=== PATIENT | female | born 1980 | race Two or more races ===

== ENCOUNTER 2020-04-17 12:00 | Outpatient (RCR) | payer MEDICAID, SELFPAY ==
--- NOTE | 2020-03-10 11:04 | MHC.PT.EP ---
[facility] [place] Office [place] Office [place] Office [address] Bhargavi Lyle [address] [phone] F: [phone] F: [phone] F: [phone] F: [phone] Physical Therapy Plan of Care Date of Evaluation: 03/10/20 Date of Surgery: N/A Diagnosis: pain in L shoulder Assessment: pt presents to physical therapy with pain, decreased range of motion, decreased strength, impaired functional mobility, and impaired postural awareness. pt is a good candidate for skilled PT due to age, potential remediation of impairments, typical disease/condition progression and prognosis, comorbidities, and motivation. pt would benefit from tailored strengthening and stretching exercise program, postural re-training, neuromuscular re-education, and modalities as needed for pain. Frequency and Duration: The patient will be seen 2x/wk for 4 wks Short Term Goals: pt will be I w/ HEP to promote self-management of condition. pt will improve L shoulder flexion AROM to 120 degrees to facilitate ease in reaching for objects on higher shelves. Retirement Goals: pt will improve L shoulder functional ER to occiput level w/ <2/10 L shoulder pain to promote independence in performing upper body ADLs. pt will report statistically significant improvement in self-reported outcome measure, SPADI, to promote return to PLOF. Treatment Plan: Modalities to reduce pain, spasms and effusion. Manual therapy to restore motion and function. Therapeutic exercise to improve strength and flexibility. Neuromuscular re-education for posture and balance. Therapeutic activities to return to functional activities of daily living. Please sign and return to therapist. Thank you for your referral.
--- NOTE | 2020-04-17 12:50 | MHC.PT.DC ---
[facility] [place] Office [place] Office [place] Office [address] Lyle [address] [phone] F: [phone] F: [phone] F: [phone] F: [phone] Physical Therapy Discharge Report Diagnosis: pain in L shoulder Date of Surgery: N/A Date of Evaluation: 03/10/20 Date of Discharge: 04/17/20 Treatments to Date: 8 Cancellations to Date: 0 No Shows to Date: 0 Discharge Status: Achieved Goals Improved Function Independent with HEP Discharge Summary: pt reported a statistically significant improvement in her self-reported outcome measure, SPADI (22/130, previously 130/130). pt has improved in her shoulder AROM measurements. pt stated she feels PT was very helpful in reducing her pain and improving her range of motion. pt is I w/ her HEP. pt is D/C'd from this PT POC. Electronically signed by: Nallely Malik PT, DPT Please sign and return to therapist. Thank you for your referral.
== END 2020-04-17 12:51 | disposition other institution (70) ==
LOC: HO.PT 12:00
PROVIDERS: PCP Internal Medicine; Visit Provider Internal Medicine
DX: M25.512 Pain in left shoulder (principal)
CPT/HCPCS: 97110; 97162

== ENCOUNTER → 2020-07-24 11:25 | Outpatient (BNVA) | payer MEDICAID, SELFPAY | PROVIDERS: Visit Provider Urology ==

== ENCOUNTER 2020-08-03 11:32 | Outpatient (REF) | payer MEDICAID, SELFPAY ==
--- NOTE | ~2020-08-03 | MM_ITS ---
EXAMINATION: MM SCREENING DIGITAL BREAST TOMOSYNTHESIS, BILATERAL CLINICAL INFORMATION: Screening. Asymptomatic. The lifetime risk of breast cancer based on the Tyrer-Cuzick Model is 8%. COMPARISON: Mammography: 01/23/2019 (baseline) TECHNIQUE: Digital breast tomosynthesis is performed in both the craniocaudal and mediolateral oblique views along with computer-aided detection (CAD). Synthesized 2D images are generated from the tomosynthesis. FINDINGS: There are scattered areas of fibroglandular density (ACR BI-RADS breast composition Category b). There are no significant masses, abnormal calcifications, or other abnormalities. Parenchymal pattern is similar to prior studies. The axilla and skin contours are unremarkable. MM/MM tomosynthesis screening BI IMPRESSION: No mammographic evidence of malignancy. ASSESSMENT: BI-RADS 1: Negative RECOMMENDATION: Routine annual mammography screening. This patient's information was entered into a reminder system with a target due date for their next mammogram.
== END 2020-08-03 11:33 | disposition home or self-care (01) ==
LOC: HO.MAMMO 11:32
PROVIDERS: PCP Internal Medicine; Visit Provider Internal Medicine
DX: Z12.31 Encounter for screening mammogram for malignant neoplasm of breast (principal)
CPT/HCPCS: 77063; 77067

== ENCOUNTER 2020-08-10 15:28 | Emergency (ER) | payer MEDICAID, SELFPAY ==
[2020-08-10 16:39] VITALS: BP 100/79; PULSE 69; RESP 16; TEMP 36.7; O2SAT 100; BMI 35.4
[2020-08-10 17:19] LABS: COVID-19 Test Negative (Negative)
--- NOTE | 2020-08-10 17:54 | ED.GENADULT ---
HPI - General Adult General Chief complaint: General Medical Stated complaint: COVID SYMPTOMS Time Seen by Provider: 08/10/20 17:05 Source: patient Mode of arrival: ambulatory Limitations: no limitations History of Present Illness HPI narrative: Patient presents to ED for 2 days of body aches and sore throat. Patient states no fever, chills, chest pain, shortness of breath. Patient states she was at a [employer] last week and concern for COVID exposure. Related Data Previous Rx's Medication Instructions Recorded bethanechol chloride 50 mg tablet 50 mg PO BID 90 Days #180 tab 07/24/20 Allergies Allergy/AdvReac Type Severity Reaction Status Date / Time Seafood Allergy Severe ANAPHYLAXIS Uncoded 07/24/20 11:26 pinapple Allergy Unknown redness Uncoded 07/24/20 11:26 and itching seafood Allergy Unknown anaphylaxis Uncoded 07/24/20 11:26 Review of Systems Review of Systems: Yes all other systems are reviewed and are negative Constitutional: Constitutional: Reports as per HPI, Reports no additional constitutional complaints and Reports body ache(s) Eyes: Eyes: Reports as per HPI and Reports no additional eye complaints ENT: Reports system reviewed and no additional complaints, except as documented, Reports as per HPI and Reports sore throat Cardiovascular: Cardiovascular: Reports as per HPI and Reports no additional cardiovascular complaints Respiratory: Respiratory: Reports as per HPI and Reports no additional respiratory complaints Gastrointestinal: Gastrointestinal: Reports as per HPI and Reports no additional gastrointestinal complaints Genitourinary: Genitourinary: Reports no additional female genitourinary complaints and Reports as per HPI Musculoskeletal: Musculoskeletal: Reports no additional musculoskeletal complaints and Reports as per HPI Neurologic: Reports system reviewed and no additional complaints, except as documented and Reports as per HPI Psychiatric: Psychiatric: Reports no additional psychiatric complaints and Reports as per HPI [facility] Social History Social History Alcohol intake: never Smoking Status: Never smoker Use of substances other than those prescribed or required for medical reasons: No Advance Directives: No Advance Directives Information Provided: No Physical Exam Vital Signs: Vital Signs: Last Vital Signs Temp 98.0 F 08/10/20 16:39 Pulse 69 08/10/20 16:39 Resp 16 08/10/20 16:39 BP 100/79 08/10/20 16:39 Pulse Ox 100 08/10/20 16:39 Body Mass Index 35.4 Const: General: cooperative, healthy appearing, comfortable, no acute distress, well developed, alert, awake and Physically active Orientation/consciousness: patient oriented x3 HENMT: Other: Or exam negative for signs of bacterial tonsillitis/pharyngitis. Oral exam negative for signs of peritonsillar abscess Head: Yes normal to inspection, Yes No palpable skull fracture present, Yes normocephalic, Yes atraumatic and No abrasion Eyes: General: appearance normal, both eyes and all related structures Neck: Neck: Yes normal visual inspection, Yes full ROM, Yes no lymphadenopathy, Yes no meningeal signs, Yes trachea midline, Yes supple and No tender Chest: Chest palpation & inspection: normal inspection of the chest and normal palpation of entire chest wall Resp: Effort & Inspection: normal respiratory effort and able to speak in complete sentences Cardio: Jugular venous distension: no JVD Heart sounds: S1 normal heart sound present and S2 normal heart sound present GI: Inspection: Yes normal to inspection and No abdominal wall ecchymosis Palpation (GI): Soft to palpation, not firm, nontender, no guarding and not rigid : General: No CVA tenderness and Yes no CVA tenderness Back/Spine/Pelvis: Back: no CVA tenderness, No CVA tenderness and No back tenderness Skin: General skin exam: no rashes or lesions noted and elasticity normal Neuro: General: patient oriented x3, no meningeal signs and CN's II-XI intact bilaterally Cranial nerves: Yes CN's II-XII intact bilaterally Extrem: General: Yes normal to inspection and Yes full ROM Course Course Course Narrative: Patient will have rapid COVID swab sent Reevaluation(s) Reevaluation #1: Patient's COVID swab came back negative. Rapid strep was collected and sent. History physical exam does not indicate bacterial tonsillitis/pharyngitis. Patient informed that although her COVID swab came back negative due to her having symptoms for only 2 days and might be a false negative. Patient informed she should get retested in 72 hours or continue quarantine if you get worse. Time: 18:03 Medical Decision Making MDM Narrative Medical decision making narrative: Viral syndrome. Viral pharyngitis Lab Data Labs: Lab Results 08/10/20 Range/Units 16:44 COVID-19 ([facility]) Negative (Negative) COVID-19 Clin Com See Note Discharge Plan Discharge Clinical Impression: Acute viral syndrome, Acute viral pharyngitis Patient Disposition: Home, Self-Care Instructions: Pharyngitis (ED), Viral Syndrome (ED) Additional Instructions: Return to the ED immediately for any chest pain, shortness of breath, weakness, dizziness, fever, chills, worsening sore throat or any other concerning symptoms. He can take [id number] Motrin/Tylenol. Symptoms worsen recommend 14 days self-isolation or repeat COVID test Prescriptions: No Action bethanechol chloride 50 mg tablet 50 mg PO BID 90 Days Qty: 180 RF: 1 Referrals: Annetta Hayes MD [Primary Care Provider] - 2 days (Viral syndrome. Initial COVID swab negative) Interventions: ED Discharge Assessment Last Done: 08/10/20 18:22 Discharge Date/Time: 08/10/20 18:25 Print Language: Bolivian
== END 2020-08-10 18:25 | disposition home or self-care (01) ==
PROVIDERS: Emergency Provider Emergency Medicine; PCP Internal Medicine
DX: J02.9 Acute pharyngitis, unspecified (principal); Z20.822 Contact with and (suspected) exposure to COVID-19; B34.9 Viral infection, unspecified
CPT/HCPCS: 36415; 87071; 87635; 87880; 99283; 99284

== ENCOUNTER 2020-10-06 13:57 | Outpatient (REF) | payer MEDICAID, SELFPAY ==
[2020-10-06 14:48] LABS: MANUAL DIFF FLAG NO
[2020-10-06 14:52] LABS: Basophils Percent Auto 0.4 % (0-2); Eosinophils Absolute Auto 0.1 X10*3/uL (0.0-0.4); Eosinophils Percent Auto 1.9 % (0-4); Hematocrit 38.2 % (37-47); Hemoglobin 12.6 g/dl (12.0-16.0); Imm Gran Abs Auto 0.01 X10*3/uL (0.00-0.03); Imm Gran Pct Auto 0.1 % (0.0-0.4); Lymphocytes Absolute Auto 1.7 X10*3/uL (1.2-4.9); Lymphocytes Percent Auto 24.3 % (20-40); Mean Corpuscular Hemoglobin 29.7 pg (27.0-33.0); Mean Corpuscular Volume 90.1 fL (80-98); Mean Platelet Volume 11.8 fL (9.4-12.3); Monocytes Absolute Auto 0.5 X10*3/uL (0.1-1.2); Monocytes Percent Auto 6.6 % (2-11); Neutrophils Absolute Auto 4.5 X10*3/uL (2.0-8.3); Neutrophils Percent Auto 66.7 % (45-73); Platelet Count 212 X10*3/uL (160-400); Red Blood Count 4.24 X10*6/uL (4.20-5.50); Red Cell Distribution Width 14.3 % (11.0-16.0); White Blood Count 6.8 X10*3/uL (4.8-10.8)
== END 2020-10-06 13:58 | disposition home or self-care (01) ==
LOC: HO.LAB 13:57
PROVIDERS: PCP Internal Medicine; Visit Provider Psychiatry & Neurology Neurology
DX: G35 Multiple sclerosis (principal)
CPT/HCPCS: 36415; 85025

== ENCOUNTER 2020-11-12 08:26 | Emergency (ER) | payer MEDICAID, SELFPAY ==
[2020-11-12 08:54] VITALS: BP 105/78; PULSE 72; RESP 18; TEMP 36.7; O2SAT 100; BMI 32.9
--- NOTE | 2020-11-12 09:07 | ED_ITS ---
HPI - General Adult General Chief complaint: General Medical Stated complaint: sore throat Time Seen by Provider: 11/12/20 09:25 Source: patient Mode of arrival: ambulatory Limitations: no limitations History of Present Illness HPI narrative: Patient presents to the ED for sore throat. Patient states 2 weeks ago she was treated for strep throat and was positive for strep. Patient finished her antibiotics/amoxicillin 2 weeks ago. Patient states that her son came home and has been sick and now she is having sore throat again and body aches. Patient states white patch on right tonsil. Patient states no coughing. Patient complains sore throat, headache, and body ache pain. patient states no chest pain or shortness of breath. Patient vaccinated against COVID Related Data Previous Rx's Medication Instructions Recorded bethanechol chloride 50 mg tablet 50 mg PO BID 90 Days #180 tab 07/24/20 amoxicillin-pot clavulanate 1 tab PO Q12H #20 tab 11/12/20 [Augmentin] naproxen 500 mg PO BID PRN #20 tab 11/12/20 Allergies Allergy/AdvReac Type Severity Reaction Status Date / Time Seafood Allergy Severe ANAPHYLAXIS Uncoded 07/24/20 11:26 pinapple Allergy Unknown redness Uncoded 07/24/20 11:26 and itching seafood Allergy Unknown anaphylaxis Uncoded 07/24/20 11:26 Review of Systems Review of Systems: Yes all other systems are reviewed and are negative Constitutional: Constitutional: Reports as per HPI, Reports no additional constitutional complaints, Reports body ache(s) and Reports headache(s) Eyes: Eyes: Reports as per HPI and Reports no additional eye complaints ENT: Reports system reviewed and no additional complaints, except as documented, Reports as per HPI, Reports headache(s) and Reports sore throat Cardiovascular: Cardiovascular: Reports as per HPI and Reports no additional cardiovascular complaints Respiratory: Respiratory: Reports as per HPI and Reports no additional respiratory complaints Gastrointestinal: Gastrointestinal: Reports as per HPI and Reports no additional gastrointestinal complaints Genitourinary: Genitourinary: Reports no additional female genitourinary complaints and Reports as per HPI Musculoskeletal: Musculoskeletal: Reports no additional musculoskeletal complaints and Reports as per HPI Neurologic: Reports system reviewed and no additional complaints, except as documented, Reports as per HPI and Reports headache(s) Psychiatric: Psychiatric: Reports no additional psychiatric complaints and Reports as per HPI [facility] Social History Social History Alcohol intake: never Advance Directives: No Advance Directives Information Provided: Yes Patient : No Physical Exam Vital Signs: Vital Signs: Last Vital Signs Temp 98.0 F 11/12/20 08:54 Pulse 72 11/12/20 08:54 Resp 18 11/12/20 08:54 BP 105/78 11/12/20 08:54 Pulse Ox 100 11/12/20 08:54 Body Mass Index 32.9 Const: General: cooperative, healthy appearing, comfortable, no acute distress, well developed, alert, awake and Physically active Orientation/consciousness: patient oriented x3 HENMT: Head: Yes normal to inspection, Yes No palpable skull fracture present, Yes normocephalic and Yes atraumatic Throat: Yes posterior oropharynx normal, Yes uvula midline and Yes abnormal tonsil (White patch on right tonsil) Eyes: General: appearance normal, both eyes and all related structures Neck: Neck: Yes normal visual inspection, Yes full ROM, Yes no lymphadenopathy, Yes no meningeal signs, Yes trachea midline, Yes supple and No tender Chest: Chest palpation & inspection: normal inspection of the chest and normal palpation of entire chest wall Resp: Effort & Inspection: normal respiratory effort and able to speak in complete sentences Auscultation: clear to auscultation bilaterally Cardio: Jugular venous distension: no JVD Heart sounds: S1 normal heart sound present and S2 normal heart sound present GI: Inspection: Yes normal to inspection and No abdominal wall ecchymosis Palpation (GI): Soft to palpation, not firm, nontender, no guarding and not rigid : General: No CVA tenderness and Yes no CVA tenderness Back/Spine/Pelvis: Back: no CVA tenderness, No CVA tenderness and No back tenderness Skin: General skin exam: no rashes or lesions noted and elasticity normal Neuro: General: patient oriented x3, gait normal, no meningeal signs and CN's II-XI intact bilaterally Cranial nerves: Yes CN's II-XII intact bilaterally Extrem: General: Yes normal to inspection and Yes full ROM Psych: Appearance: grossly normal, well kempt and not disheveled Course Course Course Narrative: Patient will be swabbed for COVID and strep. Reevaluation(s) Reevaluation #1: Patient's COVID swab and strep came back negative. Due to history of recurrence positive throat cultures patient will be discharged with antibiotics for strep pharyngitis. Time: 10:17 Medical Decision Making MDM Narrative Medical decision making narrative: Pharyngitis Lab Data Labs: Lab Results 11/12/20 11/12/20 Range/Units 09:34 09:34 COVID-19 ([facility]) Negative (Negative) COVID-19 Clin Com See Note S. pyogenes GrpA TOMASZ Negative (Negative) Discharge Plan Discharge Clinical Impression: Pharyngitis Patient Disposition: Home, Self-Care Instructions: Pharyngitis (ED) Additional Instructions: A COVID swab and strep test came back negative, but due to history of recurring positive strep throat cultures I will discharge with antibiotics. Return to the ED for drooling, change in voice, chest pain, shortness of breath, weakness, dizziness, or any other concerning symptoms. Prescriptions: New amoxicillin-pot clavulanate [Augmentin] 875-125 mg tablet 1 tab PO Q12H Qty: 20 RF: 0 naproxen 500 mg tablet 500 mg PO BID PRN (Reason: pain) Qty: 20 RF: 0 No Action bethanechol chloride 50 mg tablet 50 mg PO BID 90 Days Qty: 180 RF: 1 Referrals: Annetta Hayes MD [Primary Care Provider] - 2 days (Pharyngitis. COVID swab negative. Initial strep throat negative, but due to recurrence positive strep throat culture as per patient's history she will be discharged with antibiotics.) Interventions: ED Discharge Assessment Last Done: 11/12/20 10:33 Discharge Date/Time: 11/12/20 10:34 Print Language: Rwandan
[2020-11-12 10:03] LABS: COVID-19 Test Negative (Negative); IDNOW Serial# 9DD0AD1C
[2020-11-12 10:04] LABS: IDNOW Serial# 08D9AD1C; Strep A Nucleic Acid Negative (Negative)
== END 2020-11-12 10:34 | disposition home or self-care (01) ==
PROVIDERS: Physician Assistant; Emergency Provider Emergency Medicine; PCP Internal Medicine
DX: J02.9 Acute pharyngitis, unspecified (principal); Z20.822 Contact with and (suspected) exposure to COVID-19
CPT/HCPCS: 36415; 87635; 87651; 99283

== ENCOUNTER 2021-02-16 12:34 | Outpatient (REF) | payer MEDICAID, SELFPAY ==
[2021-02-16 13:54] LABS: MANUAL DIFF FLAG NO
[2021-02-16 14:01] LABS: Basophils Percent Auto 0.4 % (0-2); Eosinophils Absolute Auto 0.1 X10*3/uL (0.0-0.4); Eosinophils Percent Auto 1.5 % (0-4); Hematocrit 38.6 % (37-47); Hemoglobin 12.9 g/dl (12.0-16.0); Imm Gran Abs Auto 0.01 X10*3/uL (0.00-0.03); Imm Gran Pct Auto 0.2 % (0.0-0.4); Lymphocytes Absolute Auto 1.6 X10*3/uL (1.2-4.9); Mean Corpuscular HGB Conc 33.4 g/dl (31.0-35.0); Mean Corpuscular Hemoglobin 30.1 pg (27.0-33.0); Mean Corpuscular Volume 90.2 fL (80-98); Mean Platelet Volume 12.1 fL (9.4-12.3); Monocytes Absolute Auto 0.4 X10*3/uL (0.1-1.2); Monocytes Percent Auto 8.4 % (2-11); Neutrophils Absolute Auto 3.1 X10*3/uL (2.0-8.3); Neutrophils Percent Auto 59.5 % (45-73); Platelet Count 194 X10*3/uL (160-400); Red Blood Count 4.28 X10*6/uL (4.20-5.50); Red Cell Distribution Width 14.3 % (11.0-16.0); White Blood Count 5.2 X10*3/uL (4.8-10.8)
[2021-02-16 14:26] LABS: Alanine Aminotransferase 13 U/L (0-31); Albumin Level 4.6 g/dL (3.5-5.0); Alkaline Phosphatase 43 U/L (39-117); Anion Gap 13 (12-20); Aspartate Amino Transferase 12 U/L (5-31); Bilirubin Total 0.6 mg/dL (0.0-1.0); Blood Urea Nitrogen 11 mg/dL (9-16); Calcium 10.1 mg/dL (8.4-10.2); Carbon Dioxide 25 mmol/L (22-29); Chloride 107 mmol/L (96-108); Cholesterol 210 mg/dL; Estimated Glomerular Filt Rate > 60; Glucose Fasting 87 mg/dL (60-99); HDL Cholesterol 68 mg/dL; LDL Cholesterol Calculated 130 mg/dl; Potassium 4.8 mmol/L (3.3-5.1); Sodium 140 mmol/L (135-145); Total Protein 7.4 g/dL (6.5-8.0); Triglycerides 60 mg/dL
[2021-02-19 20:52] LABS: HPV mRNA E6/E7 Not Detected (Not Detected)
== END 2021-02-16 12:35 | disposition home or self-care (01) ==
LOC: HO.10HDL 12:34
PROVIDERS: Visit Provider Internal Medicine
DX: Z00.00 Encounter for general adult medical examination without abnormal findings (principal); Z12.4 Encounter for screening for malignant neoplasm of cervix; Z11.51 Encounter for screening for human papillomavirus (HPV); Z13.31 Encounter for screening for depression; G35 Multiple sclerosis
CPT/HCPCS: 36415; 80053; 80061; 85025; 87624; 88142

== ENCOUNTER → 2021-03-03 10:36 | Outpatient (BNVA) | payer MEDICAID, SELFPAY | PROVIDERS: PCP Internal Medicine | DX: G35 Multiple sclerosis (principal); N31.9 Neuromuscular dysfunction of bladder, unspecified | CPT/HCPCS: 51798; 99212 ==

== ENCOUNTER → 2021-05-03 11:25 | Outpatient (BNVA) | payer MEDICAID, SELFPAY | PROVIDERS: PCP Internal Medicine ==

== ENCOUNTER 2021-05-12 12:16 | Outpatient (REF) | payer MEDICAID, SELFPAY ==
[2021-05-12 13:03] LABS: Alanine Aminotransferase 16 U/L (0-31); Albumin Level 4.5 g/dL (3.5-5.0); Alkaline Phosphatase 38 U/L (39-117); Aspartate Amino Transferase 17 U/L (5-31); Bilirubin Direct 0.2 mg/dL (0.0-0.5); Bilirubin Total 0.6 mg/dL (0.0-1.0); Total Protein 7.4 g/dL (6.5-8.0)
== END 2021-05-12 12:17 | disposition home or self-care (01) ==
LOC: HO.LAB 12:16
PROVIDERS: Psychiatry & Neurology Neurology; PCP Internal Medicine; Visit Provider Internal Medicine
DX: G35 Multiple sclerosis (principal)
CPT/HCPCS: 20610; 36415; 80076; 99202

== ENCOUNTER 2021-05-12 12:35 | Outpatient (REF) | payer MEDICAID, SELFPAY ==
--- NOTE | ~2021-05-12 | XR_ITS ---
EXAMINATION: X-RAY BILATERAL KNEES X-RAY RIGHT KNEE X-RAY LEFT KNEE CLINICAL INFORMATION: Pain COMPARISON: X-ray 11/13/2018 TECHNIQUE: X-ray bilateral knees one view. Left knee 2 views. Right knee 2 views. FINDINGS: Left knee: Moderate to severe lateral compartment arthritis, joint space loss, osteophytes, genu valgus. Arthritis to a lesser degree in the lateral and patellofemoral compartment. No fracture or dislocation. No effusion. Right knee: Mild narrowing of the joint spaces. Marginal osteophytes and lateral compartment. Small suprapatellar joint fluid. No fracture or dislocation. XR/XR knee LT 2V IMPRESSION: Left knee: Tricompartment osteoarthritis. Moderate to severe lateral compartment arthritis. Interval progression from previous. Right knee: Mild tricompartment arthritis. Slight interval progression from previous.
--- NOTE | ~2021-05-12 | XR_ITS ---
EXAMINATION: X-RAY BILATERAL KNEES X-RAY RIGHT KNEE X-RAY LEFT KNEE CLINICAL INFORMATION: Pain COMPARISON: X-ray 11/13/2018 TECHNIQUE: X-ray bilateral knees one view. Left knee 2 views. Right knee 2 views. FINDINGS: Left knee: Moderate to severe lateral compartment arthritis, joint space loss, osteophytes, genu valgus. Arthritis to a lesser degree in the lateral and patellofemoral compartment. No fracture or dislocation. No effusion. Right knee: Mild narrowing of the joint spaces. Marginal osteophytes and lateral compartment. Small suprapatellar joint fluid. No fracture or dislocation. XR/XR knee RT 2V IMPRESSION: Left knee: Tricompartment osteoarthritis. Moderate to severe lateral compartment arthritis. Interval progression from previous. Right knee: Mild tricompartment arthritis. Slight interval progression from previous.
--- NOTE | ~2021-05-12 | XR_ITS ---
EXAMINATION: X-RAY BILATERAL KNEES X-RAY RIGHT KNEE X-RAY LEFT KNEE CLINICAL INFORMATION: Pain COMPARISON: X-ray 11/13/2018 TECHNIQUE: X-ray bilateral knees one view. Left knee 2 views. Right knee 2 views. FINDINGS: Left knee: Moderate to severe lateral compartment arthritis, joint space loss, osteophytes, genu valgus. Arthritis to a lesser degree in the lateral and patellofemoral compartment. No fracture or dislocation. No effusion. Right knee: Mild narrowing of the joint spaces. Marginal osteophytes and lateral compartment. Small suprapatellar joint fluid. No fracture or dislocation. XR/XR knee standing BI IMPRESSION: Left knee: Tricompartment osteoarthritis. Moderate to severe lateral compartment arthritis. Interval progression from previous. Right knee: Mild tricompartment arthritis. Slight interval progression from previous.
== END 2021-05-12 12:36 | disposition home or self-care (01) ==
LOC: HO.HOSX 12:35
PROVIDERS: Visit Provider Physician Assistant
DX: M25.561 Pain in right knee (principal); M25.562 Pain in left knee
CPT/HCPCS: 73560; 73565; J1020

== ENCOUNTER 2021-09-03 10:37 | Outpatient (REF) | payer MEDICAID, SELFPAY ==
--- NOTE | ~2021-09-03 | MM_ITS ---
EXAMINATION: MM SCREENING DIGITAL BREAST TOMOSYNTHESIS, BILATERAL CLINICAL INFORMATION: Screening. Asymptomatic. The lifetime risk of breast cancer based on the Tyrer-Cuzick Model is 8%. COMPARISON: Mammography: 08/03/2020, 01/23/2019 (baseline). TECHNIQUE: Digital breast tomosynthesis is performed in both the craniocaudal and mediolateral oblique views along with computer-aided detection (CAD). Synthesized 2D images are generated from the tomosynthesis. FINDINGS: There are scattered areas of fibroglandular density (ACR BI-RADS breast composition Category b). There are no significant masses, abnormal calcifications, or other abnormalities. There are no significant changes. The axilla and skin contours are unremarkable. MM/MM tomosynthesis screening BI IMPRESSION: No mammographic evidence of malignancy. ASSESSMENT: BI-RADS 1: Negative RECOMMENDATION: Routine annual mammography screening. This patient's information was entered into a reminder system with a target due date for their next mammogram.
== END 2021-09-03 10:38 | disposition home or self-care (01) ==
LOC: HO.MAMMO 10:37
PROVIDERS: PCP Internal Medicine; Visit Provider Internal Medicine
DX: Z12.31 Encounter for screening mammogram for malignant neoplasm of breast (principal)
CPT/HCPCS: 77063; 77067

== ENCOUNTER 2021-11-02 10:00 | Outpatient (RCR) | payer MEDICAID, SELFPAY ==
--- NOTE | 2021-09-02 08:53 | MHC.PT.EP ---
[facility] [place] Office [place] Office [place] Office [address] Bhargavi Lyle [address] [phone] F: [phone] F: [phone] F: [phone] F: [phone] Physical Therapy Plan of Care Date of Evaluation: Date of Surgery: Diagnosis: PAIN IN SAE KNEES Assessment: MAVIS IS A PLEASANT 41 YO FEMALE WHO PRESENTS WITH SAE KNEE PAIN. SHE HAS CO-MORBIDITY MS LEADING TO ALTERED GAIT PATTERN, POOR BALANCE AND USE OF ASSISTIVE DEVICES. UPON EXAM, SHE DEMONSTRATES DECREASED KNEE ROM AND STRENGTH OF LOWER EXTREMITY. FUNCTIONAL LIMITATIONS INCLUDE DECREASED ABILITY TO PERFORM HOMEMAKING AND SELF CARE TASKS, DECREASED ABILITY TO PERFORM LONG PERIODS OF WALKING OR STATIC STANDING, DECREASED ABILITY TO NAVIGATE STAIRS AND DECREASED PARTICIPATION IN COMMUNITY AND RECREATIONAL ACTIVITIES. Pt IS A GOOD CANDIDATE FOR SKILLED PT DUE TO AGE, POTENTIAL REMEDIATION OF IMPAIRMENTS, TYPICAL DISEASE/CONDITION PROGRESSION AND PROGNOSIS, COMORBIDITIES, AND MOTIVATION. Pt WOULD BENEFIT FROM TAILORED PROGRAM OF THERAPEUTIC ACTIVITIES, FUNCTIONAL TRAINING, GAIT TRAINING, POSTURAL EDUCATION, NEUROMUSCULAR RE-EDUCATION, AND MODALITIES NEEDED. Frequency and Duration: The patient will be seen 2 X WEEK FOR 4 WEEKS Short Term Goals: INITIATE HEP AND PROMOTE SELF MANAGEMENT OF SYMPTOMS IN 2 VISITS Temperature Regulator Goals: IN 6 WEEKS: TO DEMONSTRATE FULL KNEE ROM, EQUAL SAE TO DEMONSTRATE FULL LE STRENGTH, EQUAL SAE TO ASCEND AND DESCEND STAIRS WITH RECIPROCAL GAIT WITHOUT PAIN GREATER THAN 2/10 TO AMBULATE AD MICHAEL ON LEVEL AND UNEVEN SURFACES FOR FITNESS WITHOUT PAIN GREATER THAN 2/10 TO PERFORM FULL FUNCTIONAL SQUAT WITHOUT SUBSTITUTION Treatment Plan: Modalities to reduce pain, spasms and effusion. Manual therapy to restore motion and function. Therapeutic exercise to improve strength and flexibility. Neuromuscular re-education for posture and balance. Therapeutic activities to return to functional activities of daily living. Electronically signed by: LESTER PINK PT, DPT Please sign and return to therapist. Thank you for your referral.
== END 2021-12-30 07:45 | disposition home or self-care (01) ==
LOC: HO.PT 10:00
PROVIDERS: PCP Internal Medicine; Visit Provider Internal Medicine
DX: M25.561 Pain in right knee (principal); M25.562 Pain in left knee
CPT/HCPCS: 97033; 97110; 97112; 97140; 97162; 97530

== ENCOUNTER 2021-11-26 12:26 | Emergency (ER) | payer MEDICAID, SELFPAY ==
[2021-11-26 13:19] VITALS: BP 118/76; PULSE 86; RESP 16; TEMP 36.3; O2SAT 99; BMI 33.1
--- NOTE | 2021-11-26 14:52 | ED_ITS ---
HPI - Back Pain/Injury General Chief Complaint: Back Pain/Injury Stated Complaint: shoulder, back, ankle pain Time Seen by Provider: 11/26/21 13:32 Source: patient Mode of arrival: ambulatory Limitations: no limitations History of Present Illness HPI Narrative: 41-year-old female who presents emergency department for evaluation right-sided pain after a crush injury. The patient states that she was at a [employer] store yesterday shopping. She was using a motorized shopping cart secondary to her MS. She states that someone was assisting her and stuck a case of water water bottles into her shopping cart. When the medical assistant instructor was loading a another case of water bottles and the car, the stack of water bottles tipped over and fell on the patient striking her right side and right lower extremity. She states she developed immediate pain in her mid and lower back, right arm and right leg. She states that this morning at 03:00 hours the pain was severe and was 10/10. She describes the pain is a constant, throbbing sensation and she points to her right neck, right upper back, right flank and right ankle when asked to localize the pain. The patient does have MS and states that she has ataxia and can walk with a cane. Since the injury she has had difficulty walking secondary to her pain. She denied being ill in any way prior to this injury, she denied fever, chills, chest pain, shortness of breath, nausea, vomiting MD elicited complaint: back pain and other (Right-sided back pain, neck pain, upper extremity pain and lower extremity pain) Pertinent past history: recent trauma (A stack of water bottles in cases fell on her yesterday while she was at a store shopping) Onset (ago): day(s) (2) Timing: constant Severity: severe Pain scale (0-10): 10 Similar Symptoms Previously: No Quality: throbbing Location: thoracic spine (Right side of neck, right upper and lower extremities) Radiation: none Exacerbating factors: movement Relieving factors: none Context: trauma Related Data Home Medications Medication Instructions Recorded Confirmed ibuprofen 600 mg tablet 600 mg PO TID headache 03/03/21 albuterol sulfate 90 mcg/actuation 0 mcg inhalation 05/03/21 aerosol inhaler (ProAir HFA) fluticasone propionate 110 0 mcg inhalation 05/03/21 mcg/actuation HFA aerosol inhaler (Flovent HFA) Previous Rx's Medication Instructions Recorded amoxicillin 875 mg-potassium 1 tab PO Q12H #20 tabs 11/12/20 clavulanate 125 mg tablet (Augmentin) naproxen 500 mg tablet 500 mg PO BID PRN pain #20 tabs 11/12/20 terazosin 1 mg capsule 1 mg PO BEDTIME #90 caps 07/05/21 bethanechol chloride 50 mg tablet 50 mg PO BID Neurogenic bladder 90 09/27/21 days #180 tabs oxycodone 5 mg tablet 5 mg PO Q4H PRN pain #14 tabs 11/26/21 Allergies Allergy/AdvReac Type Severity Reaction Status Date / Time Seafood Allergy Severe ANAPHYLAXIS Uncoded 05/03/21 11:26 pinapple Allergy Unknown redness Uncoded 05/03/21 11:26 and itching seafood Allergy Unknown anaphylaxis Uncoded 05/03/21 11:26 Review of Systems Review of Systems: Yes all other systems are reviewed and are negative [facility] Past Medical History [facility] Narrative: Social history: The patient denies tobacco use. The patient occasionally drinks alcohol. The patient denies drug use. Medical History GERD (gastroesophageal reflux disease) Incomplete emptying of bladder Multiple sclerosis Neurogenic bladder Primary osteoarthritis of left knee Primary osteoarthritis of right knee Thrombosed external hemorrhoid Surgical History History of surgery Social History Social History Alcohol intake: never Advance Directives: Yes Advance Directives Information Provided: Yes Advance Directives on File: No Current occupational status: disabled Current occupation: rt handed Physical Exam Vital Signs: Vital Signs: Last Vital Signs Temp 97.3 F 11/26/21 13:19 Pulse 86 11/26/21 13:19 Resp 16 11/26/21 13:19 BP 118/76 11/26/21 13:19 Pulse Ox 99 11/26/21 13:19 O2 Del Method 11/26/21 13:19 BMI result Body Mass Index 33.1 Const: Other: Awake, alert, female patient, she does have a resting tremor, she appears to be in distress secondary to her pain, she is sitting upright in a cardiac chair. HEENT: Head: Yes normal to inspection, Yes normocephalic and Yes atraumatic Ears: external ears normal General nose exam: Normal external nose present Face and sinus: Yes normal facial exam Mouth: Normal oral and palatal mucosa present Throat: Yes posterior oropharynx normal Eyes: General: appearance normal, both eyes and all related structures Pupils: Equal, round and reactive pupils present Neck: Other: No C-spine tenderness, patient does have tenderness palpation her right trapezius muscle Chest: Chest palpation & inspection: normal inspection of the chest and normal palpation of entire chest wall Resp: Effort & Inspection: normal respiratory effort and able to speak in complete sentences Auscultation: clear to auscultation bilaterally Cardio: Rate: regular rate Rhythm: regular rhythm Heart sounds: S1 normal heart sound present, S2 normal heart sound present and no murmurs GI: Inspection: Yes normal to inspection Palpation (GI): Soft to palpation, nontender and no guarding Auscultation: normal bowel sounds Back/Spine/Pelvis: Other: Patient has tenderness palpation of her paraspinal muscles on the right on her thoracic and lumbar region. Skin: General skin exam: no rashes or lesions noted Neuro: Cranial nerves: Yes CN's II-XII intact bilaterally and Yes Equal, round and reactive pupils present Cognition (Neuro): normal cognition Motor exam (neuro): 5/5 motor strength present throughout Extrem: Other: Tenderness palpation of her right shoulder, right upper arm, right lower extremity and right ankle, there is no limited range motion either actively or passively Psych: Appearance: grossly normal Speech and movement: Normal speech and movement present Affect: normal affect Attitude: cooperative Thought process: Normal thought process present Thought content: Normal thought content present Course Course Course Narrative: 41-year-old female who presents emergency department for evaluation of pain in her right neck, right side of her back, right upper and lower extremities after sustaining a crush injury had a local door when will crease of water bottles fell onto her right side while she was sitting in a motorized shopping cart. The patient did have pain immediately after the incident but had increased severity of the pain at 03:00 hours. Her examination is consistent with musculoskeletal injury and consistent with a crush injury with the pain being minor at 1st and then more severe later is the inflammation buildup in her muscles. She was given ibuprofen 600 mg orally and oxycodone 5 mg orally here in the emergency department. She was advised to take Tylenol and ibuprofen for pain and for pain not relieved by these medications she was prescribed oxycodone. The patient states that she is not concerned about addiction and does not have history of addiction. The patient was given printed and verbal instructions and discharged home. Discharge Plan Discharge Clinical Impression: Crush injury, Acute thoracic back pain, Acute lumbar back pain, Right arm pain, Acute pain of right lower extremity Patient Disposition: Home, Self-Care Instructions: Crush Injury (ED) Additional Instructions: Crush injury Discharge Instructions: Take ibuprofen 200 mg pills, 3 pills every 6 hours as needed for pain. Take Tylenol (acetaminophen) 500 mg pills, 2 pills every 4-6 hours as needed for pain. For pain not relieved by ibuprofen or Tylenol take oxycodone 5 mg pills, 1 pill every 4 hours as needed for pain. Do not drive or work while taking this medication since they can cause sleepiness. Oxycodone is a narcotic medication that can be addicting. If you are concerned about addiction you can ask the pharmacist for less pills or do not get this prescription filled. Apply ice for 15 minutes to the area that hurts on your neck, back, upper and lower extremities. Do this 4-6 times a day to help reduce the pain in the areas that were her in your accident.. Continue with normal activities as tolerated since staying in bed and not moving around will make your pain worse. Please return to the Emergency Department or see your doctor immediately if your symptoms get worse or if you develop any new symptoms that are concerning you. Follow up with your doctor in 2 day. Please read the other printed discharge instructions on crush injury. Prescriptions: New oxycodone 5 mg tablet 5 mg PO Q4H PRN (Reason: pain) Qty: 14 0RF Rx Instructions: Patient may request partial fill; Partial Fill upon patient request. No Action terazosin 1 mg capsule 1 mg PO BEDTIME Qty: 90 3RF bethanechol chloride 50 mg tablet 50 mg PO BID 90 Days Qty: 180 1RF amoxicillin-pot clavulanate [Augmentin] 875-125 mg tablet 1 tab PO Q12H Qty: 20 0RF naproxen 500 mg tablet 500 mg PO BID PRN (Reason: pain) Qty: 20 0RF ibuprofen 600 mg tablet 600 mg PO TID Flovent HFA 110 mcg/actuation HFA aerosol inhaler 0 mcg inhalation albuterol sulfate [ProAir HFA] 90 mcg/actuation HFA aerosol inhaler 0 mcg inhalation
[2021-11-26] MEDS: oxyCODONE HCl Immed Release 5 MG TABLET PO (15:00)
[2021-11-26] MEDS: Ibuprofen 600 MG TABLET PO (15:00)
== END 2021-11-26 15:17 | disposition home or self-care (01) ==
PROVIDERS: Emergency Provider Emergency Medicine Emergency Medical Services; PCP Internal Medicine
DX: S19.9XXA Unspecified injury of neck, initial encounter (principal); M79.602 Pain in left arm; M79.601 Pain in right arm; M79.605 Pain in left leg; M79.604 Pain in right leg; M54.6 Pain in thoracic spine; M54.50 Low back pain, unspecified; M54.2 Cervicalgia; Y29.XXXA Contact with blunt object, undetermined intent, initial encounter; Y93.9 Activity, unspecified; Y92.512 Supermarket, store or market as the place of occurrence of the external cause; Y99.9 Unspecified external cause status; Z79.899 Other long term (current) drug therapy
CPT/HCPCS: 99283

== ENCOUNTER 2022-02-09 12:14 | Outpatient (REF) | payer MEDICAID, SELFPAY ==
[2022-02-09 12:34] LABS: MANUAL DIFF FLAG NO
[2022-02-09 13:26] LABS: Basophils Percent Auto 0.6 % (0-2); Eosinophils Absolute Auto 0.2 X10*3/uL (0.0-0.4); Eosinophils Percent Auto 3.5 % (0-4); Hematocrit 38.2 % (37.0-47.0); Hemoglobin 12.5 g/dl (12.0-16.0); Imm Gran Abs Auto 0.02 X10*3/uL (0.00-0.03); Imm Gran Pct Auto 0.3 % (0.0-0.4); Lymphocytes Absolute Auto 1.6 X10*3/uL (1.2-4.9); Lymphocytes Percent Auto 22.5 % (20-40); Mean Corpuscular HGB Conc 32.7 g/dl (31.0-35.0); Mean Corpuscular Hemoglobin 30.1 pg (27.0-33.0); Monocytes Absolute Auto 0.6 X10*3/uL (0.1-1.2); Monocytes Percent Auto 8.1 % (2-11); Neutrophils Absolute Auto 4.5 x10*3/uL (2.0-8.3); Platelet Count 206 X10*3/uL (160-400); Red Blood Count 4.15 X10*6/uL (4.20-5.50); Red Cell Distribution Width 13.8 % (11.0-16.0); White Blood Count 6.9 X10*3/uL (4.8-10.8)
[2022-02-09 13:59] LABS: Alanine Aminotransferase 17 U/L (0-31); Albumin Level 4.2 g/dL (3.5-5.0); Alkaline Phosphatase 44 U/L (39-117); Aspartate Amino Transferase 14 U/L (5-31); Bilirubin Direct < 0.2 mg/dL (0.0-0.5); Bilirubin Total 0.2 mg/dL (0.0-1.0)
== END 2022-02-09 12:15 | disposition home or self-care (01) ==
LOC: HO.LAB 12:14
PROVIDERS: PCP Internal Medicine; Visit Provider Psychiatry & Neurology Neurology
DX: G35 Multiple sclerosis (principal)
CPT/HCPCS: 36415; 80076; 85025

== ENCOUNTER → 2022-04-14 14:30 | Outpatient (BNVA) | payer MEDICAID, SELFPAY | PROVIDERS: PCP Internal Medicine; Visit Provider Physician Assistant | DX: M17.0 Bilateral primary osteoarthritis of knee (principal) | CPT/HCPCS: 20610; 99212; J1020 ==

== ENCOUNTER 2022-08-30 12:24 | Outpatient (REF) | payer MEDICAID, SELFPAY ==
[2022-08-30 12:38] LABS: MANUAL DIFF FLAG NO
[2022-08-30 13:16] LABS: Hematocrit 37.9 % (37.0-47.0); Hemoglobin 12.7 g/dl (12.0-16.0); Imm Gran Pct Auto 0.4 % (0.0-0.4); Mean Corpuscular HGB Conc 33.5 g/dl (31.0-35.0); Mean Corpuscular Hemoglobin 30.2 pg (27.0-33.0); Mean Corpuscular Volume 90.2 fL (80.0-98.0); Neutrophils Percent Auto 69.7 % (45-73); Platelet Count 203 X10*3/uL (160-400); White Blood Count 7.9 X10*3/uL (4.8-10.8)
[2022-08-30 13:17] LABS: Basophils Percent Auto 0.3 % (0-2); Eosinophils Absolute Auto 0.2 X10*3/uL (0.0-0.4); Eosinophils Percent Auto 2.8 % (0-4); Imm Gran Abs Auto 0.03 X10*3/uL (0.00-0.03); Lymphocytes Absolute Auto 1.5 X10*3/uL (1.2-4.9); Lymphocytes Percent Auto 19.3 % (20-40); Monocytes Absolute Auto 0.6 X10*3/uL (0.1-1.2); Monocytes Percent Auto 7.5 % (2-11); Neutrophils Absolute Auto 5.5 x10*3/uL (2.0-8.3)
[2022-08-30 13:40] LABS: Alanine Aminotransferase 20 U/L (0-31); Albumin Level 4.2 g/dL (3.5-5.0); Alkaline Phosphatase 54 U/L (39-117); Aspartate Amino Transferase 17 U/L (5-31); Bilirubin Direct < 0.2 mg/dL (0.0-0.5); Bilirubin Total 0.5 mg/dL (0.0-1.0)
== END 2022-08-30 12:25 | disposition home or self-care (01) ==
LOC: HO.LAB 12:24
PROVIDERS: PCP Internal Medicine; Visit Provider Psychiatry & Neurology Neurology
DX: G35 Multiple sclerosis (principal)
CPT/HCPCS: 36415; 80076; 85025

== ENCOUNTER 2022-09-09 10:26 | Outpatient (REF) | payer MEDICAID, SELFPAY ==
--- NOTE | ~2022-09-09 | MM_ITS ---
EXAMINATION: MM SCREENING DIGITAL BREAST TOMOSYNTHESIS, BILATERAL CLINICAL INFORMATION: Screening. Asymptomatic. The lifetime risk of breast cancer based on the Tyrer-Cuzick Model is 6%. COMPARISON: Mammography: January 03, 2022 and studies dating back to January 23, 2019 TECHNIQUE: Digital breast tomosynthesis is performed in both the craniocaudal and mediolateral oblique views along with computer-aided detection (CAD). Synthesized 2D images are generated from the tomosynthesis. FINDINGS: There are scattered areas of fibroglandular density (ACR BI-RADS breast composition Category b). There are no significant masses, abnormal calcifications, or other abnormalities. MM/MM tomosynthesis screening BI IMPRESSION: No significant changes from prior exam. ASSESSMENT: BI-RADS 1: Negative RECOMMENDATION: Routine annual mammography screening. This patient's information was entered into a reminder system with a target due date for their next mammogram.
== END 2022-09-09 10:27 | disposition home or self-care (01) ==
LOC: HO.MAMMO 10:26
PROVIDERS: PCP Internal Medicine; Visit Provider Internal Medicine
DX: Z12.31 Encounter for screening mammogram for malignant neoplasm of breast (principal)
CPT/HCPCS: 77063; 77067

== ENCOUNTER 2022-09-26 09:32 | Outpatient (REF) | payer MEDICAID, SELFPAY ==
[2022-09-26 10:04] LABS: MANUAL DIFF FLAG NO
[2022-09-26 10:39] LABS: Basophils Percent Auto 0.3 % (0-2); Eosinophils Absolute Auto 0.1 X10*3/uL (0.0-0.4); Eosinophils Percent Auto 2.4 % (0-4); Hematocrit 36.2 % (37.0-47.0); Imm Gran Abs Auto 0.02 X10*3/uL (0.00-0.03); Imm Gran Pct Auto 0.3 % (0.0-0.4); Lymphocytes Absolute Auto 1.8 X10*3/uL (1.2-4.9); Lymphocytes Percent Auto 30.6 % (20-40); Mean Corpuscular HGB Conc 33.1 g/dl (31.0-35.0); Mean Corpuscular Hemoglobin 30.4 pg (27.0-33.0); Mean Corpuscular Volume 91.6 fL (80.0-98.0); Mean Platelet Volume 12.2 fL (9.4-12.3); Monocytes Absolute Auto 0.5 X10*3/uL (0.1-1.2); Monocytes Percent Auto 8.2 % (2-11); Neutrophils Absolute Auto 3.4 x10*3/uL (2.0-8.3); Neutrophils Percent Auto 58.2 % (45-73); Platelet Count 203 X10*3/uL (160-400); Red Blood Count 3.95 X10*6/uL (4.20-5.50); Red Cell Distribution Width 13.8 % (11.0-16.0); White Blood Count 5.8 X10*3/uL (4.8-10.8)
[2022-09-26 11:43] LABS: Alanine Aminotransferase 24 U/L (0-31); Albumin Level 4.1 g/dL (3.5-5.0); Alkaline Phosphatase 56 U/L (39-117); Anion Gap 10 (12-20); Aspartate Amino Transferase 17 U/L (5-31); Bilirubin Total 0.6 mg/dL (0.0-1.0); Blood Urea Nitrogen 11 mg/dL (9-16); Calcium 9.4 mg/dL (8.4-10.2); Carbon Dioxide 26 mmol/L (22-29); Chloride 109 mmol/L (96-108); Cholesterol 176 mg/dL; Estimated Glomerular Filt Rate > 60; Glucose Random 90 mg/dL (60-115); HDL Cholesterol 55 mg/dL; LDL Cholesterol Calculated 109 mg/dl; Potassium 4.3 mmol/L (3.3-5.1); Sodium 141 mmol/L (135-145); Total Protein 6.8 g/dL (6.5-8.0); Triglycerides 60 mg/dL
[2022-09-26 11:52] LABS: Thyroid Stimulating Hormone 2.23 uIU/mL (0.32-4.0)
== END 2022-09-26 09:33 | disposition home or self-care (01) ==
LOC: HO.LAB 09:32
PROVIDERS: PCP Internal Medicine; Visit Provider Internal Medicine
DX: Z00.00 Encounter for general adult medical examination without abnormal findings (principal); G35 Multiple sclerosis; J45.998 Other asthma
CPT/HCPCS: 36415; 80053; 80061; 84443; 85025

== ENCOUNTER 2022-09-29 11:02 | Outpatient (REF) | payer MEDICAID, SELFPAY ==
[2022-09-29 16:22] LABS: Urine Cytology See Pathology rpt
== END 2022-09-29 11:03 | disposition home or self-care (01) ==
LOC: HO.LNP 11:02
PROVIDERS: PCP Internal Medicine; Visit Provider Nurse Practitioner Family
DX: N31.9 Neuromuscular dysfunction of bladder, unspecified (principal); R31.29 Other microscopic hematuria
CPT/HCPCS: 51798; 88112; 99212

== ENCOUNTER → 2022-11-02 09:43 | Outpatient (BNVA) | payer MEDICAID, SELFPAY | PROVIDERS: PCP Internal Medicine; Visit Provider Physician Assistant | DX: M17.0 Bilateral primary osteoarthritis of knee (principal) | CPT/HCPCS: 20610; 99212; J7323 ==

== ENCOUNTER → 2022-11-09 10:43 | Outpatient (BNVA) | payer MEDICAID, SELFPAY | PROVIDERS: PCP Internal Medicine; Visit Provider Physician Assistant | DX: M17.0 Bilateral primary osteoarthritis of knee (principal) | CPT/HCPCS: 20610; J7323 ==

== ENCOUNTER → 2022-11-16 10:20 | Outpatient (BNVA) | payer MEDICAID, SELFPAY | PROVIDERS: PCP Internal Medicine; Visit Provider Physician Assistant | DX: M17.0 Bilateral primary osteoarthritis of knee (principal) | CPT/HCPCS: 20610; J7323 ==

== ENCOUNTER 2023-02-07 09:30 | Outpatient (REF) | payer MEDICAID, SELFPAY ==
[2023-02-07 09:49] LABS: MANUAL DIFF FLAG NO
[2023-02-07 10:22] LABS: Basophils Percent Auto 0.3 % (0-2); Eosinophils Absolute Auto 0.1 X10*3/uL (0.0-0.4); Eosinophils Percent Auto 1.5 % (0-4); Hemoglobin 12.6 g/dl (12.0-16.0); Imm Gran Abs Auto 0.02 X10*3/uL (0.00-0.03); Imm Gran Pct Auto 0.3 % (0.0-0.4); Lymphocytes Absolute Auto 1.6 X10*3/uL (1.2-4.9); Lymphocytes Percent Auto 23.6 % (20-40); Mean Corpuscular HGB Conc 33.2 g/dl (31.0-35.0); Mean Corpuscular Hemoglobin 29.9 pg (27.0-33.0); Mean Corpuscular Volume 90.3 fL (80.0-98.0); Mean Platelet Volume 11.8 fL (9.4-12.3); Monocytes Absolute Auto 0.6 X10*3/uL (0.1-1.2); Monocytes Percent Auto 8.3 % (2-11); Neutrophils Absolute Auto 4.5 x10*3/uL (2.0-8.3); Platelet Count 200 X10*3/uL (160-400); Red Blood Count 4.21 X10*6/uL (4.20-5.50); Red Cell Distribution Width 14.6 % (11.0-16.0); White Blood Count 6.9 X10*3/uL (4.8-10.8)
[2023-02-07 11:05] LABS: Alanine Aminotransferase 14 U/L (0-31); Alkaline Phosphatase 40 U/L (39-117); Anion Gap 10 (12-20); Aspartate Amino Transferase 13 U/L (5-31); Bilirubin Total 0.4 mg/dL (0.0-1.0); Blood Urea Nitrogen 9 mg/dL (9-16); Calcium 9.5 mg/dL (8.4-10.2); Carbon Dioxide 27 mmol/L (22-29); Chloride 107 mmol/L (96-108); Cholesterol 199 mg/dL (<200); Estimated Glomerular Filt Rate > 60; Glucose Random 101 mg/dL (60-115); HDL Cholesterol 65 mg/dL (>40); LDL Cholesterol Calculated 124 mg/dL (<100); Potassium 4.3 mmol/L (3.3-5.1); Sodium 140 mmol/L (135-145); Total Protein 6.9 g/dL (6.5-8.0); Triglycerides 50 mg/dL (<150)
[2023-02-07 11:23] LABS: Thyroid Stimulating Hormone 2.39 uIU/mL (0.32-4.0)
== END 2023-02-07 09:31 | disposition home or self-care (01) ==
LOC: HO.LAB 09:30
PROVIDERS: PCP Internal Medicine; Visit Provider Internal Medicine
DX: Z00.00 Encounter for general adult medical examination without abnormal findings (principal); G35 Multiple sclerosis; J45.998 Other asthma
CPT/HCPCS: 36415; 80053; 80061; 84443; 85025

== ENCOUNTER 2023-03-01 11:28 | Outpatient (AMB) | payer MEDICAID, SELFPAY ==
[2023-03-01 11:34] VITALS: BMI 33.1
--- NOTE | 2023-03-01 11:34 | A.OFFVIS_ITS ---
Intake Vital Signs 03/01/23 11:34 Height 5 ft 3 in Weight 187 lb BMI 33.1 Intake Visit Reasons: Ov- Left knee pain Intake Note: Shama a 42 year old female who presents today for a follow up of left knee pain, last Euflexxa injection on 11/16/22. Patient reports injections did not provide her any relief. She would like to discuss surgery. Allergies Seafood Allergy (Severe, Uncoded 03/01/23 11:35) ANAPHYLAXIS pinapple Allergy (Unknown, Uncoded 03/01/23 11:35) redness and itching seafood Allergy (Unknown, Uncoded 03/01/23 11:35) anaphylaxis HPI Ov- Left knee pain HPI Details 42-year-old female who returns to the [facility] today for a follow-up of left knee pain. She continues to have pain in her bilateral knees which is worse on her left knee. She had her last Euflexxa gel injection on 11/16/22 which did not provide her any relief. She is interested in having a surgery. [facility] Medical History GERD (gastroesophageal reflux disease) Incomplete emptying of bladder Multiple sclerosis Neurogenic bladder Primary osteoarthritis of left knee Primary osteoarthritis of right knee Thrombosed external hemorrhoid Surgical History History of surgery Social History Alcohol intake: never Current occupational status: disabled Current occupation: rt handed Review of Systems Const All systems reviewed & are unremarkable except as noted in HPI and below Physical Exam Vital Signs: BMI result Body Mass Index 33.1 Const General: cooperative and no acute distress Orientation/consciousness: patient oriented x3 Resp Effort & Inspection: normal respiratory effort and able to speak in complete sentences Cardio Peripheral pulses: Peripheral pulses 2+ throughout Neuro General: patient oriented x3 Extrem Other: Bilateral knees normal to inspection. She does have valgus alignment. Medial joint line tenderness and tenderness along the retropatellar portion of the knee. She has full range of motion with crepitus. No ligamentous laxity. Calf supple nontender. Neurovascular intact. Assessment & Plan Assessment & Plan (1) Osteoarthritis of knees, bilateral: Code(s): M17.0 - Bilateral primary osteoarthritis of knee Qualifiers: Osteoarthritis type: primary Qualified Code(s): M17.0 - Bilateral primary osteoarthritis of knee Plan We had a lengthy discussion about the extent of her osteoarthritis and options available which include surgical intervention. She is interested in pursuing Total knee arthroplasty to improve her functional capacity and daily activities; which is significantly limited with the MS and Knee pain combined. I explained to her the procedure in detail, the hospital stays and details about post op rehab and precautions. She does understand all this and would like to move forward. I will have her meet with Dr Pena to discuss this further. She is content with this plan. Patient Instructions: Scribed for Deborah Vidal PA-C, by Milton Levine medical device, on 03/01/2023 at 11:30 AM MIKEY. Deborah Sorensen PA-C, have personally reviewed and agree with the information entered by the scribe. Coding Level of Care Code Est Pt Level 3 (44225) Diagnoses Primary osteoarthritis of both knees M17.0 Osteoarthritis type: primary
== END 2023-03-01 12:17 | disposition home or self-care (01) ==
PROVIDERS: PCP Internal Medicine; Visit Provider Physician Assistant
DX: M17.0 Bilateral primary osteoarthritis of knee (principal)
CPT/HCPCS: 99213

== ENCOUNTER → 2023-03-01 11:28 | Outpatient (BNVA) | payer MEDICAID, SELFPAY | PROVIDERS: PCP Internal Medicine; Visit Provider Physician Assistant | DX: M17.0 Bilateral primary osteoarthritis of knee (principal) | CPT/HCPCS: 99212 ==

== ENCOUNTER 2023-03-30 13:55 | Outpatient (AMB) | payer MEDICAID, SELFPAY ==
--- NOTE | 2023-03-30 14:12 | MHC.OFFVIS ---
Intake Intake Visit Reasons: OV-Discuss TKA LT knee Intake Note: Shama is a 42 year old female who presnets today to discuss surgery for Left total knee replacement Allergies Seafood Allergy (Severe, Uncoded 03/30/23 14:16) ANAPHYLAXIS pinapple Allergy (Unknown, Uncoded 03/30/23 14:16) redness and itching seafood Allergy (Unknown, Uncoded 03/30/23 14:16) anaphylaxis HPI OV-Discuss TKA LT knee HPI Details Zee is a 42 year old woman with bilateral knee OA, who presents to discuss her left knee. She complains of pain with daily activity, along with weakness and instability Her left knee is more bothersome than her right. She found no relief from steroid or gel injections in the past. She has MS, and says she was diagnosed at the age of 12 and primarily affects her left side. She says she is stable on medication right now [facility] Medical History (Updated 03/30/23 @ 14:16 by John Monsivais) GERD (gastroesophageal reflux disease) Multiple sclerosis Neurogenic bladder Incomplete emptying of bladder Primary osteoarthritis of right knee Primary osteoarthritis of left knee Thrombosed external hemorrhoid Surgical History History of surgery Social History Alcohol intake: never Current occupational status: disabled Current occupation: rt handed Review of Systems Const All systems reviewed & are unremarkable except as noted in HPI and below Physical Exam Const General: no acute distress, alert and awake Orientation/consciousness: patient oriented x3 HEENT Head: Yes normocephalic and Yes atraumatic Eyes EOM: EOMs intact bilaterally Resp Effort & Inspection: normal respiratory effort and able to speak in complete sentences Cardio Jugular venous distension: no JVD Skin General skin exam: turgor normal Rashes: no rashes Neuro General: patient oriented x3 Extrem Other: Bilateral Knees: Valgus left knee TTP lateral compartment 4+/5 quad/gc/Hs 4/5 EPL/EHL gait antalgia with walker Psych Appearance: grossly normal Affect: normal affect Attitude: cooperative Results Reviewed Results Reviewed: I personally reviewed relevant radiographs. Severe valgus pattern left knee OA Assessment & Plan Assessment & Plan (1) Primary osteoarthritis of left knee: Code(s): M17.12 - Unilateral primary osteoarthritis, left knee Plan: This is a 42 year old woman with severe valgus pattern left knee OA & pain. She has pain with daily activity, along with weakness and instability, however she has good ROM. She has failed conservative treatment options, feels limited in her ADLs, and that her QOL is diminished. I discussed her diagnosis and treatment options.She wants a TKA but her MS is advnadced and she has weakness in muscle testing. At this time I would recommend non operative treatment. I referred her to Dr. Reid in Pain Management . I ordered a lateral unloading brace. (2) Primary osteoarthritis of right knee: Code(s): M17.11 - Unilateral primary osteoarthritis, right knee (3) Multiple sclerosis: Code(s): G35 - Multiple sclerosis Plan: Stable on medication Plan Scribed for Bryan Pena MD by John Monsivais, medical billing assistant, on 03/30/23 at 2:30 PM, EST. Orders: Referrals Pain Management Referral G35 - Multiple sclerosis, M17.12 - Unilateral primary osteoarthritis, left knee Coding Level of Care Code Est Pt Level 4 (13974) Diagnoses Primary osteoarthritis of left knee M17.12 Primary osteoarthritis of right knee M17.11 Multiple sclerosis G35
== END 2023-03-30 15:26 | disposition home or self-care (01) ==
LOC: HO.HOS 13:55
PROVIDERS: PCP Internal Medicine; Visit Provider Orthopaedic Surgery
DX: M17.0 Bilateral primary osteoarthritis of knee (principal); G35 Multiple sclerosis
CPT/HCPCS: 99214

== ENCOUNTER → 2023-03-30 13:55 | Outpatient (BNVA) | payer MEDICAID, SELFPAY | PROVIDERS: PCP Internal Medicine; Visit Provider Orthopaedic Surgery | DX: M17.0 Bilateral primary osteoarthritis of knee (principal); G35 Multiple sclerosis | CPT/HCPCS: 99212 ==

== ENCOUNTER 2023-04-17 10:31 | Outpatient (AMB) | payer MEDICAID, SELFPAY ==
--- NOTE | 2023-04-17 10:34 | MHC.OFFVIS ---
Intake Vital Signs 04/17/23 10:35 Height 5 ft 3 in Weight 191 lb BMI 33.8 BP 109/60 Blood Pressure Location Rt brachial Position Sitting Respiration 12 Pulse 73 Pulse Source Pulse Oximeter Pulse Oximetry (%) 99 Oxygen Delivery Method Room Air Intake Visit Reasons: Unilateral primary OA, left knee & MS/confirmed Allergies seafood Allergy (Severe, Verified 04/19/23 15:15) Anaphylaxis pineapple Allergy (Verified 04/19/23 15:15) redness and itching Medication List - Last Reconciled 04/17/23 by Willa Cota LPN albuterol sulfate 90 mcg/actuation (ProAir HFA) 0 mcg inhalation bethanechol chloride 50 mg PO BID 90 days diclofenac sodium 1% 4 grams topical QID 30 days dimethyl fumarate (Tecfidera) 240 mg PO BID fluticasone propionate 110 mcg/actuation (Flovent HFA) 0 mcg inhalation ibuprofen 600 mg PO TID naproxen 500 mg PO BID PRN terazosin 1 mg PO BEDTIME 90 days HPI Unilateral primary OA, left knee & MS/confirmed HPI Details 43-year-old female who presents today to the office for an evaluation of primary OA and left knee pain ? The patient has a history of MS, which is manageable on medication. She was diagnosed at the age of 12 and primarily affects her left side. She has a history of bilateral OA. She complains of pain with daily activity, along with weakness and instability. Her left knee is more bothersome than her right. She denies any knee injury or trauma in the past. The patient has not used a knee brace. She found no relief from steroid or gel injections in the past. She has tried physical therapy and oral medication in the past with minimal benefit. [facility] Medical History (Updated 03/30/23 @ 14:16 by John Monsivais) GERD (gastroesophageal reflux disease) Multiple sclerosis Neurogenic bladder Incomplete emptying of bladder Primary osteoarthritis of right knee Primary osteoarthritis of left knee Thrombosed external hemorrhoid Surgical History History of surgery Alcohol intake: never Current occupational status: disabled Current occupation: rt handed Review of Systems Const All systems reviewed & are unremarkable except as noted in HPI and below Physical Exam Vital Signs: Last Vital Signs Pulse 73 04/17/23 10:35 Resp 12 04/17/23 10:35 BP 109/60 04/17/23 10:35 Pulse Ox 99 04/17/23 10:35 Oxygen Delivery Method Room Air 04/17/23 10:35 BMI result Body Mass Index 33.8 General: Appears afebrile. Alert and oriented. Mood and affect appropriate. Follows and participates in conversation appropriately. Respiratory effort is unlabored. Able to transition from sit to stand unassisted. Ambulates with bilaterally normal heel strike and toe off. There is bilateral valgus deformity of the legs - left is more pronounced than the right. Results Reviewed Results Reviewed: No imaging is available for review. Assessment & Plan Assessment & Plan (1) Osteoarthritis of knees, bilateral: Code(s): M17.0 - Bilateral primary osteoarthritis of knee Qualifiers: Osteoarthritis type: primary Qualified Code(s): M17.0 - Bilateral primary osteoarthritis of knee Plan We discussed a peripheral nerve stimulator implant using a Curonix device targeting the superior lateral genicular nerve as a possible treatment option. The patient will think about it, and she will inform us so we can schedule her for psychological clearance. For the time being, I recommend continuing physical therapy in combination with bracing/mechanical support. Scribed for Dr. Reid by Oscar Gunn, medical technologist microbiology, on 04/17/2023. I, Dr. Reid, have personally reviewed and agree with the information entered by the scribe. Coding Level of Care Code New Pt Level 3 (60106) Diagnoses Primary osteoarthritis of both knees M17.0 Osteoarthritis type: primary
[2023-04-17 10:35] VITALS: BP 109/60; PULSE 73; RESP 12; O2SAT 99; BMI 33.8
== END 2023-04-17 10:59 | disposition home or self-care (01) ==
PROVIDERS: PCP Internal Medicine; Referring Provider Orthopaedic Surgery; Visit Provider Internal Medicine
DX: M17.0 Bilateral primary osteoarthritis of knee (principal)
CPT/HCPCS: 99203

== ENCOUNTER → 2023-04-17 10:31 | Outpatient (BNVA) | payer MEDICAID, SELFPAY | PROVIDERS: PCP Internal Medicine; Referring Provider Orthopaedic Surgery; Visit Provider Internal Medicine | DX: M17.0 Bilateral primary osteoarthritis of knee (principal) | CPT/HCPCS: 99202 ==

== ENCOUNTER 2023-07-17 12:01 | Outpatient (REF) | payer MEDICAID, SELFPAY ==
[2023-07-17 12:14] LABS: MANUAL DIFF FLAG NO
[2023-07-17 12:32] LABS: Basophils Percent Auto 0.5 % (0-2); Eosinophils Absolute Auto 0.1 X10*3/uL (0.0-0.4); Eosinophils Percent Auto 1.6 % (0-4); Hematocrit 38.3 % (37.0-47.0); Hemoglobin 12.9 g/dl (12.0-16.0); Imm Gran Abs Auto 0.07 X10*3/uL (0.00-0.03); Imm Gran Pct Auto 0.9 % (0.0-0.4); Lymphocytes Absolute Auto 1.9 X10*3/uL (1.2-4.9); Lymphocytes Percent Auto 25.6 % (20-40); Mean Corpuscular HGB Conc 33.7 g/dl (31.0-35.0); Mean Corpuscular Hemoglobin 30.5 pg (27.0-33.0); Mean Corpuscular Volume 90.5 fL (80.0-98.0); Mean Platelet Volume 11.5 fL (9.4-12.3); Monocytes Absolute Auto 0.5 X10*3/uL (0.1-1.2); Monocytes Percent Auto 7.1 % (2-11); Neutrophils Absolute Auto 4.8 x10*3/uL (2.0-8.3); Neutrophils Percent Auto 64.3 % (45-73); Platelet Count 199 X10*3/uL (160-400); Red Blood Count 4.23 X10*6/uL (4.20-5.50); Red Cell Distribution Width 14.6 % (11.0-16.0); White Blood Count 7.5 X10*3/uL (4.8-10.8)
[2023-07-17 12:36] LABS: Appearance Urine Cloudy; Color Urine Yellow; Glucose Urine UA Negative (Negative); Leukocyte Esterase Urine Moderate (2+) (Negative); Nitrite Urine Negative (Negative); PH 5.5 (5.0-9.0); Specific Gravity - Urine >= 1.030 (1.005-1.025); UMIC TRIGGER UA YES; Urine Blood Small (1+) (Negative); Urine Ketones Negative (Negative); Urine Protein Negative (Neg-Trace)
[2023-07-17 12:52] LABS: Bacteria Urine 4+ (None Seen); Hyaline Casts Urine 0-2 /LPF (0-2); WBC Urine 21-50 /HPF (0-5)
[2023-07-17 13:22] LABS: Alanine Aminotransferase 13 U/L (0-31); Albumin Level 4.2 g/dL (3.5-5.0); Alkaline Phosphatase 42 U/L (39-117); Aspartate Amino Transferase 12 U/L (5-31); Bilirubin Direct 0.1 mg/dL (0.0-0.5); Bilirubin Total 0.4 mg/dL (0.0-1.0); Total Protein 7.3 g/dL (6.5-8.0)
== END 2023-07-17 12:02 | disposition home or self-care (01) ==
LOC: HO.LAB 12:01
PROVIDERS: Visit Provider Psychiatry & Neurology Neurology
DX: G35 Multiple sclerosis (principal)
CPT/HCPCS: 36415; 80076; 81001; 85025

== ENCOUNTER 2023-07-19 12:02 | Outpatient (REF) | payer MEDICAID, SELFPAY | END 2023-07-19 12:03 | disposition home or self-care (01) | LOC: HO.MDS 12:02 | PROVIDERS: PCP Internal Medicine; Visit Provider Psychiatry & Neurology Neurology | DX: G35 Multiple sclerosis (principal) | CPT/HCPCS: 96365; J2930 ==

== ENCOUNTER 2023-07-20 11:24 | Outpatient (REF) | payer MEDICAID, SELFPAY | END 2023-07-20 11:25 | disposition home or self-care (01) | LOC: HO.MDS 11:24 | PROVIDERS: PCP Internal Medicine; Visit Provider Psychiatry & Neurology Neurology | DX: G35 Multiple sclerosis (principal) | CPT/HCPCS: 96365; J2930 ==

== ENCOUNTER 2023-07-24 10:16 | Outpatient (AMB) | payer MEDICAID, SELFPAY ==
[2023-07-24 10:20] VITALS: BMI 33.8
--- NOTE | 2023-07-24 10:20 | A.OFFVIS_ITS ---
Intake Vital Signs 07/24/23 10:20 Height 5 ft 3 in Weight 191 lb BMI 33.8 Intake Visit Reasons: ov- bilateral synvisc one injection Intake Note: Shama mendoza 43 year old female presents today for bilateral knee synvisc one gel injection. Allergies seafood Allergy (Severe, Verified 07/24/23 10:21) Anaphylaxis pineapple Allergy (Verified 07/24/23 10:21) redness and itching HPI ov- bilateral synvisc one injection HPI Details 43-year-old female who returns to the [facility] today for bilateral knee Synvisc One injection. [facility] Medical History (Updated 03/30/23 @ 14:16 by John Monsivais) GERD (gastroesophageal reflux disease) Multiple sclerosis Neurogenic bladder Incomplete emptying of bladder Primary osteoarthritis of right knee Primary osteoarthritis of left knee Thrombosed external hemorrhoid Surgical History History of surgery Social History Alcohol intake: never Current occupational status: disabled Current occupation: rt handed Review of Systems Const All systems reviewed & are unremarkable except as noted in HPI and below Physical Exam Vital Signs: BMI result Body Mass Index 33.8 Const General: cooperative and no acute distress Orientation/consciousness: patient oriented x3 Resp Effort & Inspection: normal respiratory effort and able to speak in complete sentences Cardio Peripheral pulses: Peripheral pulses 2+ throughout Neuro General: patient oriented x3 Extrem Other: Bilateral knees normal to inspection. She does have valgus alignment. Medial joint line tenderness and tenderness along the retropatellar portion of the knee. She has full range of motion with crepitus. No ligamentous laxity. Calf supple nontender. Neurovascular intact. Office Procedures Joint Injection/Drain Joint Injection/Drain Details: bilateral synvisc one injection Primary Site: right knee Secondary Site: left knee Prep: site was prepped using aseptic technique, ethochloride spray was applied and injection warnings given Injected: in the joint Approach Used: anterolateral Procedure: The patient tolerated the procedure well Coding 98905 - Glenohumeral/Tronchanteric Bursa/Intraarticular Procedure code (CPT) selection complete Assessment & Plan Assessment & Plan (1) Osteoarthritis of knees, bilateral: Code(s): M17.0 - Bilateral primary osteoarthritis of knee Qualifiers: Osteoarthritis type: primary Qualified Code(s): M17.0 - Bilateral primary osteoarthritis of knee Plan We discussed options today which include steroid injection. They did consent to move forward with the bilateral knee Synvisc One injection, which was tolerated well. I recommended rest, ice and elevation and OTC anti-inflammatories PRN for discomfort. If symptoms persist or worsens over the next 6-8 weeks, patient will contact the office, otherwise follow-up as needed. Patient Instructions: Scribed for Deborah Vidal PA-C, by Milton Levine medical delivery technician, on 07/24/2023 at 10:15 AM EST. I, Deborah Vidal PA-C, have personally reviewed and agree with the information entered by the scribe. Coding Level of Care Code Procedure Only Diagnoses Primary osteoarthritis of both knees M17.0 Osteoarthritis type: primary CPT Codes Coding - Joint 7: 25275 - Glenohumeral/Tronchanteric Bursa/Intraarticular ([id number])
== END 2023-07-24 11:01 | disposition home or self-care (01) ==
PROVIDERS: PCP Internal Medicine; Visit Provider Physician Assistant
DX: M17.0 Bilateral primary osteoarthritis of knee (principal)
CPT/HCPCS: 20610

== ENCOUNTER → 2023-07-24 10:16 | Outpatient (BNVA) | payer MEDICAID, SELFPAY | PROVIDERS: PCP Internal Medicine; Visit Provider Physician Assistant | DX: M17.0 Bilateral primary osteoarthritis of knee (principal) | CPT/HCPCS: 20610; J7325 ==

== ENCOUNTER 2023-09-14 10:00 | Outpatient (REF) | payer MEDICAID, SELFPAY | END 2023-09-14 10:01 | disposition home or self-care (01) | LOC: HO.MAMMO 10:00 | PROVIDERS: PCP Internal Medicine; Visit Provider Internal Medicine | DX: Z12.31 Encounter for screening mammogram for malignant neoplasm of breast (principal) | CPT/HCPCS: 77063; 77067 ==

== ENCOUNTER → 2023-09-14 10:30 | Outpatient (BNV) | payer MEDICAID, SELFPAY | PROVIDERS: PCP Internal Medicine; Visit Provider Radiology Diagnostic Radiology | DX: Z12.31 Encounter for screening mammogram for malignant neoplasm of breast (principal) | CPT/HCPCS: 77063; 77067 ==

== ENCOUNTER 2023-11-27 06:30 | Outpatient (REF) | payer MEDICAID, SELFPAY | END 2023-11-27 06:31 | disposition home or self-care (01) | LOC: HO.HOSX 06:30 | PROVIDERS: Visit Provider Physician Assistant | DX: Z13.89 Encounter for screening for other disorder (principal) ==

== ENCOUNTER 2023-12-18 09:25 | Outpatient (REF) | payer MEDICAID, SELFPAY ==
--- NOTE | ~2023-12-18 | XR_ITS ---
Examination: X-ray knee bilateral INDICATION: Primary osteoarthritis of right knee. Pain in left knee. COMPARISON: 05/12/2021 TECHNIQUE: Standing AP views of both knees with lateral and sunrise views of both knees. FINDINGS: Left knee: Advanced degenerative change in the left knee with tricompartmental joint space narrowing and bony spurring. Suprapatellar joint effusion. No foreign body. Right knee: There is moderate degenerative change in the right knee with joint space narrowing and bony spurring. No appreciable joint effusion. No foreign body. XR/XR knee LT 3V IMPRESSION: 1. Advanced degenerative change in the left knee. Suprapatellar joint effusion. 2. Moderate degenerative change in the right knee.
--- NOTE | ~2023-12-18 | XR_ITS ---
Examination: X-ray knee bilateral INDICATION: Primary osteoarthritis of right knee. Pain in left knee. COMPARISON: 05/12/2021 TECHNIQUE: Standing AP views of both knees with lateral and sunrise views of both knees. FINDINGS: Left knee: Advanced degenerative change in the left knee with tricompartmental joint space narrowing and bony spurring. Suprapatellar joint effusion. No foreign body. Right knee: There is moderate degenerative change in the right knee with joint space narrowing and bony spurring. No appreciable joint effusion. No foreign body. XR/XR knee RT 3V IMPRESSION: 1. Advanced degenerative change in the left knee. Suprapatellar joint effusion. 2. Moderate degenerative change in the right knee.
== END 2023-12-18 09:26 | disposition home or self-care (01) ==
LOC: HO.HOSX 09:25
PROVIDERS: Visit Provider Physician Assistant
DX: M17.0 Bilateral primary osteoarthritis of knee (principal)
CPT/HCPCS: 20610; 73562; 99212; J1010

== ENCOUNTER 2023-12-18 10:31 | Outpatient (AMB) | payer MEDICAID, SELFPAY ==
[2023-12-18 10:50] VITALS: BMI 31.9
--- NOTE | 2023-12-18 10:50 | A.OFFVIS_ITS ---
Vital Signs 12/18/23 10:50 Height 5 ft 3 in Weight 180 lb BMI 31.9 Intake Visit Reasons: ov- b/l knee pain Intake Note: Shama is a 43 year old female who presents today for a follow up of bilateral knee OA. Pt reports her LT knee hurting more than RT and that the pain is a 15 on a scale from 0-10. Allergies seafood Allergy (Severe, Verified 12/18/23 10:51) Anaphylaxis pineapple Allergy (Verified 12/18/23 10:51) redness and itching Medication List - Last Reconciled 12/18/23 by Deborah Vidal PA-C albuterol sulfate 90 mcg/actuation (ProAir HFA) 0 mcg inhalation bethanechol chloride 50 mg PO BID 90 days diclofenac sodium 1% 4 grams topical QID 30 days dimethyl fumarate (Tecfidera) 240 mg PO BID fluticasone propionate 110 mcg/actuation (Flovent HFA) 0 mcg inhalation ibuprofen 600 mg PO TID montelukast 10 mg PO DAILY naproxen 500 mg PO BID PRN terazosin 1 mg PO BEDTIME 90 days HPI HPI ov- b/l knee pain: Details: 43 yo female returns to the office today for bilat knee pain. She recently had gel injections which did not last long. She has pain with walking. She takes naproxen and tylenol with minimal relief. Denies recent injuries but does admit to falls. She has had Synvisc and Euflexxa in the past. She states the Synvisc did not provide significant relief. She had better results with Euflexxa. [facility] Medical History (Updated 03/30/23 @ 14:16 by John Monsivais) GERD (gastroesophageal reflux disease) Multiple sclerosis Neurogenic bladder Incomplete emptying of bladder Primary osteoarthritis of right knee Primary osteoarthritis of left knee Thrombosed external hemorrhoid Surgical History History of surgery Social History Alcohol intake: never Current occupational status: disabled Current occupation: rt handed Review of Systems Const All systems reviewed & are unremarkable except as noted in HPI and below Physical Exam Vital Signs: BMI result Body Mass Index 31.9 Const General: cooperative and no acute distress Orientation/consciousness: patient oriented x3 Resp Effort & Inspection: normal respiratory effort and able to speak in complete sentences Cardio Peripheral pulses: Peripheral pulses 2+ throughout Neuro General: patient oriented x3 Extrem Other: Bilateral knees normal to inspection. She does have valgus alignment. Medial joint line tenderness and tenderness along the retropatellar portion of the knee. She has full range of motion with crepitus. No ligamentous laxity. Calf supple nontender. Neurovascular intact. Office Procedures Joint Injection/Drain Joint Injection/Drain Primary Site: right knee Secondary Site: left knee Prep: site was prepped using aseptic technique, ethochloride spray was applied and injection warnings given Injected: 80 mg of, DepoMedrol, with 8 mL of, 1% plain lidocaine and in the joint Approach Used: anterolateral Procedure: The patient tolerated the procedure well and there was some relief with the local anesthesia Coding 96613 - Glenohumeral/Tronchanteric Bursa/Intraarticular Procedure code (CPT) selection complete Results Reviewed Results Reviewed: Xrays were obtained in the office today and personally reviewed by me show significant osteoarthritis bilateral knee Assessment & Plan Assessment & Plan (1) Primary osteoarthritis of left knee: Code(s): M17.12 - Unilateral primary osteoarthritis, left knee Category: Medical (2) Primary osteoarthritis of right knee: Code(s): M17.11 - Unilateral primary osteoarthritis, right knee Category: Medical Plan We discussed options today, which include steroid injection. The patient did consent to move forward with the injection, which was tolerated well.? I recommended rest, ice and elevation and OTC antiinflammatories prn for discomfort. I did put in a referral for Euflexxa injections in both knees as she has had significant relief with these in the past. An order for physical therapy was also placed for her to work on range of motion and strengthening exercises also trial 10s unit. She will see me back once the gel injections are available. Orders: Orders XR knee RT 3V 11/27/23 M17.11 - Unilateral primary osteoarthritis, right knee XR knee LT 3V 11/27/23 M25.562 - Pain in left knee PT Evaluation and Treatment Today M17.11 - Unilateral primary osteoarthritis, right knee, M17.12 - Unilateral primary osteoarthritis, left knee XR knee RT 3V Today M17.11 - Unilateral primary osteoarthritis, right knee XR knee LT 3V Today M25.562 - Pain in left knee Coding Level of Care Code Est Pt Level 3 (21725) Diagnoses Primary osteoarthritis of left knee M17.12 Primary osteoarthritis of right knee M17.11 CPT Codes Coding - Joint 7: 22554 - Glenohumeral/Tronchanteric Bursa/Intraarticular ([id number])
== END 2023-12-18 11:37 | disposition home or self-care (01) ==
PROVIDERS: PCP Internal Medicine; Visit Provider Physician Assistant
DX: M17.0 Bilateral primary osteoarthritis of knee (principal)
CPT/HCPCS: 20610; 99213

== ENCOUNTER 2024-01-03 10:47 | Outpatient (REF) | payer MEDICAID, SELFPAY ==
[2024-01-03 11:19] LABS: MANUAL DIFF FLAG NO
[2024-01-03 11:42] LABS: Basophils Percent Auto 0.4 % (0-2); Eosinophils Absolute Auto 0.1 X10*3/uL (0.0-0.4); Hematocrit 38.8 % (37.0-47.0); Imm Gran Abs Auto 0.03 X10*3/uL (0.00-0.03); Imm Gran Pct Auto 0.4 % (0.0-0.4); Lymphocytes Absolute Auto 1.9 X10*3/uL (1.2-4.9); Lymphocytes Percent Auto 25.9 % (20-40); Mean Corpuscular HGB Conc 33.5 g/dl (31.0-35.0); Mean Corpuscular Hemoglobin 30.7 pg (27.0-33.0); Mean Corpuscular Volume 91.7 fL (80.0-98.0); Mean Platelet Volume 11.6 fL (9.4-12.3); Monocytes Absolute Auto 0.6 X10*3/uL (0.1-1.2); Monocytes Percent Auto 8.3 % (2-11); Neutrophils Absolute Auto 4.6 x10*3/uL (2.0-8.3); Platelet Count 213 X10*3/uL (160-400); Red Blood Count 4.23 X10*6/uL (4.20-5.50); Red Cell Distribution Width 14.5 % (11.0-16.0); White Blood Count 7.2 X10*3/uL (4.8-10.8)
[2024-01-03 12:22] LABS: Alanine Aminotransferase 16 U/L (0-31); Albumin Level 4.5 g/dL (3.5-5.0); Alkaline Phosphatase 44 U/L (39-117); Aspartate Amino Transferase 13 U/L (5-31); Bilirubin Direct 0.1 mg/dL (0.0-0.5); Bilirubin Total 0.4 mg/dL (0.0-1.0); Total Protein 7.4 g/dL (6.5-8.0)
== END 2024-01-03 10:48 | disposition home or self-care (01) ==
LOC: HO.LAB 10:47
PROVIDERS: PCP Internal Medicine; Visit Provider Psychiatry & Neurology Neurology
DX: G43.909 Migraine, unspecified, not intractable, without status migrainosus (principal)
CPT/HCPCS: 36415; 80076; 85025

== ENCOUNTER 2024-02-29 10:08 | Outpatient (AMB) | payer MEDICAID, SELFPAY ==
--- NOTE | 2024-02-29 10:34 | MHC.OFFVIS ---
Vital Signs 02/29/24 10:40 Height 5 ft 3 in Weight 180 lb BMI 31.9 Intake Visit Reasons: ov- bilateral knee Euflexxa #1 Intake Note: Shama a 43 year old female who presents today for bilateral knee Euflexxa injection #1. Allergies seafood Allergy (Severe, Verified 02/29/24 10:41) Anaphylaxis pineapple Allergy (Verified 02/29/24 10:41) redness and itching Medication List - Last Reconciled 02/29/24 by Deborah Vidal PA-C albuterol sulfate 90 mcg/actuation (ProAir HFA) 0 mcg inhalation bethanechol chloride 50 mg PO BID 90 days diclofenac sodium 1% 4 grams topical QID 30 days dimethyl fumarate (Tecfidera) 240 mg PO BID fluticasone propionate 110 mcg/actuation (Flovent HFA) 0 mcg inhalation ibuprofen 600 mg PO TID montelukast 10 mg PO DAILY naproxen 500 mg PO BID PRN terazosin 1 mg PO BEDTIME 90 days HPI HPI ov- bilateral knee Euflexxa #1: Details: 43-year-old female who returns to the office today for bilateral knee Euflexxa gel injection #1. FORMERLY [facility] Medical History (Updated 03/30/23 @ 14:16 by John Monsivais) GERD (gastroesophageal reflux disease) Multiple sclerosis Neurogenic bladder Incomplete emptying of bladder Primary osteoarthritis of right knee Primary osteoarthritis of left knee Thrombosed external hemorrhoid Surgical History History of surgery Social History Alcohol intake: never Current occupational status: disabled Current occupation: rt handed Review of Systems Const All systems reviewed & are unremarkable except as noted in HPI and below Physical Exam Vital Signs: BMI result Body Mass Index 31.9 Const General: cooperative and no acute distress Orientation/consciousness: patient oriented x3 Resp Effort & Inspection: normal respiratory effort and able to speak in complete sentences Cardio Peripheral pulses: Peripheral pulses 2+ throughout Neuro General: patient oriented x3 Extrem Other: Bilateral knees normal to inspection. She does have valgus alignment. Medial joint line tenderness and tenderness along the retropatellar portion of the knee. She has full range of motion with crepitus. No ligamentous laxity. Calf supple nontender. Neurovascular intact. Office Procedures Joint Injection/Aspiration Joint Injection/Aspiration Details: #1 euflexxa bilat knee Primary Site: right knee Secondary Site: left knee Prep: site was prepped using aseptic technique and ethochloride spray was applied Injected: in the joint Approach Used: anterolateral Procedure: The patient tolerated the procedure well Coding 39079 - Glenohumeral/Tronchanteric Bursa/Intraarticular Procedure code (CPT) selection complete Assessment & Plan Assessment & Plan (1) Primary osteoarthritis of left knee: Code(s): M17.12 - Unilateral primary osteoarthritis, left knee Category: Medical (2) Primary osteoarthritis of right knee: Code(s): M17.11 - Unilateral primary osteoarthritis, right knee Category: Medical Plan We discussed options today, which include steroid injection. The patient did consent to move forward with the bilateral knee euflexxa injection, which was tolerated well. I recommended rest, ice, and elevation and OTC anti-inflammatories as needed for discomfort, she will see me back in 1 week for Euflexxa gel injection #2. Patient Instructions: Scribed for Deborah Vidal PA-C, by Milton Levine emergency medical service coordinator, on 02/29/2024 at 10:15 AM EST.? I, Deborah Vidal PA-C, have personally reviewed and agree with the information entered by the scribe. Coding Level of Care Code Procedure Only Diagnoses Primary osteoarthritis of left knee M17.12 Primary osteoarthritis of right knee M17.11 CPT Codes Coding - Joint 7: 51038 - Glenohumeral/Tronchanteric Bursa/Intraarticular ([id number])
[2024-02-29 10:40] VITALS: BMI 31.9
== END 2024-02-29 10:53 | disposition home or self-care (01) ==
PROVIDERS: PCP Internal Medicine; Visit Provider Physician Assistant
DX: M17.0 Bilateral primary osteoarthritis of knee (principal)
CPT/HCPCS: 20610

== ENCOUNTER → 2024-02-29 10:08 | Outpatient (BNVA) | payer MEDICAID, SELFPAY | PROVIDERS: PCP Internal Medicine; Visit Provider Physician Assistant | DX: M17.0 Bilateral primary osteoarthritis of knee (principal) | CPT/HCPCS: 20610; J7323 ==

== ENCOUNTER 2024-03-07 10:03 | Outpatient (AMB) | payer MEDICAID, SELFPAY ==
--- NOTE | 2024-03-07 10:11 | A.OFFVIS_ITS ---
Intake Visit Reasons: ov- bilateral knee Euflexxa #2 Allergies seafood Allergy (Severe, Verified 02/29/24 10:41) Anaphylaxis pineapple Allergy (Verified 02/29/24 10:41) redness and itching HPI HPI ov- bilateral knee Euflexxa #2: Details: 43-year-old female who returns to the office today for a bilateral knee Euflexxa gel injection #2. [facility] Medical History (Updated 03/30/23 @ 14:16 by John Monsivais) GERD (gastroesophageal reflux disease) Multiple sclerosis Neurogenic bladder Incomplete emptying of bladder Primary osteoarthritis of right knee Primary osteoarthritis of left knee Thrombosed external hemorrhoid Surgical History History of surgery Social History Alcohol intake: never Current occupational status: disabled Current occupation: rt handed Review of Systems Const All systems reviewed & are unremarkable except as noted in HPI and below Physical Exam Const General: cooperative and no acute distress Orientation/consciousness: patient oriented x3 Resp Effort & Inspection: normal respiratory effort and able to speak in complete sentences Cardio Peripheral pulses: Peripheral pulses 2+ throughout Neuro General: patient oriented x3 Extrem Other: Bilateral knees normal to inspection. She does have valgus alignment. Medial joint line tenderness and tenderness along the retropatellar portion of the knee. She has full range of motion with crepitus. No ligamentous laxity. Calf supple nontender. Neurovascular intact. Office Procedures Joint Injection/Aspiration Joint Injection/Aspiration Details: euflexxa bilat knee #2 Primary Site: right knee Secondary Site: left knee Prep: site was prepped using aseptic technique, ethochloride spray was applied and injection warnings given Injected: in the joint Approach Used: anterolateral Procedure: The patient tolerated the procedure well Coding 72330 - Glenohumeral/Tronchanteric Bursa/Intraarticular Procedure code (CPT) selection complete Assessment & Plan Assessment & Plan (1) Primary osteoarthritis of left knee: Code(s): M17.12 - Unilateral primary osteoarthritis, left knee Category: Medical (2) Primary osteoarthritis of right knee: Code(s): M17.11 - Unilateral primary osteoarthritis, right knee Category: Medical Plan We discussed options today, which include Euflexxa gel injection. The patient did consent to move forward with the bilateral knee Euflexxa gel injection #2, which was tolerated well. I recommended rest, ice, and elevation and OTC anti- inflammatories as needed for discomfort. she will see me back in 1 week for Euflexxa gel injection #3. Patient Instructions: Scribed for Deborah Vidal PA-C, by Milton Levine medical administrative, on 03/07/2024 at 10:15 AM EST.? I, Deborah Vidal PA-C, have personally reviewed and agree with the information entered by the scribe. Coding Level of Care Code Procedure Only Diagnoses Primary osteoarthritis of left knee M17.12 Primary osteoarthritis of right knee M17.11 CPT Codes Coding - Joint 7: 39924 - Glenohumeral/Tronchanteric Bursa/Intraarticular ([id number])
== END 2024-03-07 10:49 | disposition home or self-care (01) ==
PROVIDERS: PCP Internal Medicine; Visit Provider Physician Assistant
DX: M17.0 Bilateral primary osteoarthritis of knee (principal)
CPT/HCPCS: 20610

== ENCOUNTER → 2024-03-07 10:03 | Outpatient (BNVA) | payer MEDICAID, SELFPAY | PROVIDERS: PCP Internal Medicine; Visit Provider Physician Assistant | DX: M17.0 Bilateral primary osteoarthritis of knee (principal) | CPT/HCPCS: 20610; J7323 ==

== ENCOUNTER 2024-03-14 10:04 | Outpatient (AMB) | payer MEDICAID, SELFPAY ==
--- NOTE | 2024-03-14 10:07 | MHC.OFFVIS ---
Vital Signs 03/14/24 10:15 Height 5 ft 3 in Weight 180 lb BMI 31.9 Intake Visit Reasons: ov- bilateral knee Euflexxa #3 Intake Note: Shama a 43 year old female who presents today for bilateral knee Euflexxa injection #3. Allergies seafood Allergy (Severe, Verified 03/14/24 10:24) Anaphylaxis pineapple Allergy (Verified 03/14/24 10:24) redness and itching HPI HPI ov- bilateral knee Euflexxa #3: Details: 43-year-old female who returns to the office today for a bilateral knee Euflexxa gel injection #3. PENDING SALE TO [facility] Medical History (Updated 03/30/23 @ 14:16 by John Monsivais) GERD (gastroesophageal reflux disease) Multiple sclerosis Neurogenic bladder Incomplete emptying of bladder Primary osteoarthritis of right knee Primary osteoarthritis of left knee Thrombosed external hemorrhoid Surgical History History of surgery Social History Alcohol intake: never Current occupational status: disabled Current occupation: rt handed Review of Systems Const All systems reviewed & are unremarkable except as noted in HPI and below Physical Exam Vital Signs: BMI result Body Mass Index 31.9 Const General: cooperative and no acute distress Orientation/consciousness: patient oriented x3 Resp Effort & Inspection: normal respiratory effort and able to speak in complete sentences Cardio Peripheral pulses: Peripheral pulses 2+ throughout Neuro General: patient oriented x3 Extrem Other: Bilateral knees normal to inspection. She does have valgus alignment. Medial joint line tenderness and tenderness along the retropatellar portion of the knee. She has full range of motion with crepitus. No ligamentous laxity. Calf supple nontender. Neurovascular intact. Office Procedures Joint Injection/Aspiration Joint Injection/Aspiration Primary Site: right knee Secondary Site: left knee Prep: site was prepped using aseptic technique, ethochloride spray was applied and injection warnings given Injected: in the joint Approach Used: anterolateral Procedure: The patient tolerated the procedure well Coding 22251 - Glenohumeral/Tronchanteric Bursa/Intraarticular Procedure code (CPT) selection complete Assessment & Plan Assessment & Plan (1) Primary osteoarthritis of left knee: Code(s): M17.12 - Unilateral primary osteoarthritis, left knee Category: Medical (2) Primary osteoarthritis of right knee: Code(s): M17.11 - Unilateral primary osteoarthritis, right knee Category: Medical Plan We discussed options today, which include Euflexxa gel injection. The patient did consent to move forward with the bilateral knee Euflexxa gel injection #3, which was tolerated well. I recommended rest, ice, and elevation and OTC anti-inflammatories as needed for discomfort. If symptoms persist or worsen over the next 6 weeks, patient will contact the office, otherwise follow-up as needed. Patient Instructions: Scribed for Deborah Vidal PA-C, by Milton Levine medical apparatus model maker, on 03/14/2024 at 10:15 AM EST.? I, Deborah Vidal PA-C, have personally reviewed and agree with the information entered by the scribe. Coding Level of Care Code Procedure Only Diagnoses Primary osteoarthritis of left knee M17.12 Primary osteoarthritis of right knee M17.11 CPT Codes Coding - Joint 7: 29526 - Glenohumeral/Tronchanteric Bursa/Intraarticular ([id number])
[2024-03-14 10:15] VITALS: BMI 31.9
== END 2024-03-14 11:56 | disposition home or self-care (01) ==
PROVIDERS: PCP Internal Medicine; Visit Provider Physician Assistant
DX: M17.0 Bilateral primary osteoarthritis of knee (principal)
CPT/HCPCS: 20610

== ENCOUNTER → 2024-03-14 10:04 | Outpatient (BNVA) | payer MEDICAID, SELFPAY | PROVIDERS: PCP Internal Medicine; Visit Provider Physician Assistant | DX: M17.0 Bilateral primary osteoarthritis of knee (principal) | CPT/HCPCS: 20610; J7323 ==

== ENCOUNTER 2024-04-09 09:51 | Outpatient (RCR) | payer MEDICAID, SELFPAY ==
--- NOTE | 2024-01-10 15:59 | MHC.PT.EP ---
[facility] [place] Office [place] Office [place] Office [address] [phone] F: [phone] F: [phone] F: [phone] F: [phone] Physical Therapy Plan of Care Date of Evaluation: 01/10/24 Date of Surgery: Diagnosis: Osteoarthritis of RIGHT and LEFT knee Assessment: Patient is a pleasant 43 y.o. female who is referred to PT by Deborah Vidal PA-C of [facility] with Dx of RIGHT and LEFT knee osteoathritis. Her condition is impacted by her PMH of multiple sclerosis and congenital knee valgus causing more medial compartment stress. Patient impairments include swelling in her knees, weakness in hips and knees (weaker on L side), limited AROM in bilateral knees, antalgic gait with need of L AFO and rollater, poor balance due to MS. Patient current functional limitations are get up/down from low surfaces and chairs easier, stairs, prolonged standing. Patient will benefit from skilled PT to address aforementioned impairments and functional limitations to meet established goals. Frequency and Duration: The patient will be seen 2x/week for 4 weeks Short Term Goals: 2 weeks Patient demonstrates consistency and independence with HEP to self manage symptoms. Detention Goals: 4 weeks Patient presents with increased L knee flexion 115 degrees to improve sit to stand with arm rests from standard chair. Patient presents with increased bilateral knee quad strength 4+/5 to be able to stand for prolonged period of time for ADLs. Treatment Plan: Modalities to reduce pain, spasms and effusion. Manual therapy to restore motion and function. Therapeutic exercise to improve strength and flexibility. Neuromuscular re-education for posture and balance. Therapeutic activities to return to functional activities of daily living. Electronically signed by: Luis Alberto Baires, PT, DPT Please sign and return to therapist. Thank you for your referral.
--- NOTE | 2024-05-31 09:56 | MHC.PT.DC ---
[facility] [place] Office [place] Office [place] Office [address] [phone] F: [phone] F: [phone] F: [phone] F: [phone] Physical Therapy Discharge Report Diagnosis: Osteoarthritis of RIGHT and LEFT knee Date of Surgery: Date of Evaluation: 01/10/24 Date of Discharge: 05/31/24 Treatments to Date: 11 Cancellations to Date: 7 No Shows to Date: 1 Discharge Status: Improved Function Independent with HEP Patient Elected to Stop Discharge Summary: Shama was last seen on 04/09/24. The PT assessment on that date reads, Shama does demonstrate improvement in L quad and glute strength and endurance as she is able to perform more repetitions with more control. Functionally she has difficulty in weight bearing positions due to increased knee valgus and knee hyperextending. Her sit to stand was improved with more controlled lowering and she was able to complete more standing exercises today but was in definite need of cues to avoid compensations and use of UEs to keep herself upright for balance. The left brake was fixed today on her rollater. She decided to cease attending PT after this session and is discharged from PT at this time. Electronically signed by: Luis Alberto Baires, PT, DPT Please sign and return to therapist. Thank you for your referral.
== END 2024-05-31 09:57 | disposition home or self-care (01) ==
LOC: HO.PT 09:51
PROVIDERS: PCP Internal Medicine; Visit Provider Physician Assistant
DX: M17.0 Bilateral primary osteoarthritis of knee (principal)
CPT/HCPCS: 97110; 97112; 97161; 97530

== ENCOUNTER 2024-07-10 11:16 | Outpatient (REF) | payer MEDICAID, SELFPAY ==
[2024-07-10 11:44] LABS: MANUAL DIFF FLAG NO
[2024-07-10 12:04] LABS: Basophils Percent Auto 0.6 % (0-2); Eosinophils Absolute Auto 0.2 X10*3/uL (0.0-0.4); Eosinophils Percent Auto 2.4 % (0-4); Hematocrit 37.1 % (37.0-47.0); Hemoglobin 12.4 g/dl (12.0-16.0); Imm Gran Abs Auto 0.04 X10*3/uL (0.00-0.03); Imm Gran Pct Auto 0.6 % (0.0-0.4); Lymphocytes Absolute Auto 1.4 X10*3/uL (1.2-4.9); Lymphocytes Percent Auto 20.5 % (20-40); Mean Corpuscular HGB Conc 33.4 g/dl (31.0-35.0); Mean Corpuscular Hemoglobin 30.9 pg (27.0-33.0); Mean Corpuscular Volume 92.5 fL (80.0-98.0); Mean Platelet Volume 11.5 fL (9.4-12.3); Monocytes Absolute Auto 0.6 X10*3/uL (0.1-1.2); Monocytes Percent Auto 7.8 % (2-11); Neutrophils Absolute Auto 4.8 x10*3/uL (2.0-8.3); Neutrophils Percent Auto 68.1 % (45-73); Platelet Count 205 X10*3/uL (160-400); Red Blood Count 4.01 X10*6/uL (4.20-5.50); Red Cell Distribution Width 14.3 % (11.0-16.0)
[2024-07-10 12:35] LABS: Alanine Aminotransferase 27 U/L (0-31); Albumin Level 4.1 g/dL (3.5-5.0); Alkaline Phosphatase 44 U/L (39-117); Aspartate Amino Transferase 31 U/L (5-31); Bilirubin Direct 0.1 mg/dL (0.0-0.5); Bilirubin Total 0.4 mg/dL (0.0-1.0); Total Protein 7.2 g/dL (6.5-8.0)
== END 2024-07-10 11:17 | disposition home or self-care (01) ==
LOC: HO.LAB 11:16
PROVIDERS: PCP Internal Medicine; Visit Provider Psychiatry & Neurology Neurology
DX: G35 Multiple sclerosis (principal)
CPT/HCPCS: 36415; 80076; 85025

== ENCOUNTER 2024-08-09 11:35 | Emergency (ER) | payer MEDICAID, SELFPAY ==
--- NOTE | ~2024-08-09 | US_ITS ---
EXAMINATION: US TRIPLEX LOWER EXTREMITY, LEFT CLINICAL INFORMATION: Left posterior knee pain and swelling. COMPARISON: None available. TECHNIQUE: Color-flow triplex imaging with spectral analysis and compression Doppler were performed on the left lower extremity. FINDINGS: Respiratory variation, normal compression and augmented flow are noted throughout the left lower extremity. The visualized common femoral vein, superficial femoral vein, profunda femoral vein, popliteal vein and midcalf peroneal and posterior tibial venous segments show no evidence of deep venous thrombosis. There is a Villalobos cyst in the medial popliteal fossa measuring 1.2 x 6.4 x 1.5 cm. US/US venous duplex LE LT IMPRESSION: 1. No evidence of deep venous thrombosis involving the left lower extremity. 2. Moderate-sized Villalobos's cyst. Electronically signed by: Amadou Gonzales MD 08/09/2024 02:54 PM EDT
--- NOTE | ~2024-08-09 | XR_ITS ---
EXAMINATION: XR KNEE 4 OR MORE VIEWS LEFT HISTORY: pain and swelling, hx OA COMPARISON: Comparison is made with the prior examination dated 12/18/2023. FINDINGS: Five views of the left knee are submitted. Osseous mineralization is normal. There is no fracture or dislocation. There is severe osteoarthritis of the lateral compartment with joint space narrowing and osteophyte formation. More moderate changes are noted involving the medial and patellofemoral compartments. The soft tissues are unremarkable. There is no joint effusion. XR/XR knee LT 4V IMPRESSION: Osteoarthritis of the left knee as described. Electronically signed by: Christiano Bragg MD 08/09/2024 12:23 PM EDT
--- NOTE | 2024-08-09 12:01 | ED_ITS ---
HPI - General Adult General Chief complaint: Extremity Injury, Lower Stated complaint: L knee pain, arthritis Time Seen by Provider: 08/09/24 13:32 History of Present Illness ED Provider: Bhaskar Peace HPI narrative: 44 yold female with pmh of Mutliple Sclerosis and crhonic knee pain presents to the ED for left knee pain and swelling for 1 weeks. patient states no fever, chills, nausea, vomitting, redness, calf pain, chest pain, pleurisy, recent long travel, and recent srugery Related Data Home Medications ?Medication ?Instructions ?Recorded ?Confirmed ibuprofen 600 mg tablet 600 mg PO TID headache 03/03/21 02/29/24 albuterol sulfate 90 mcg/actuation 0 mcg inhalation 05/03/21 02/29/24 aerosol inhaler (ProAir HFA) fluticasone propionate 110 0 mcg inhalation 05/03/21 02/29/24 mcg/actuation HFA aerosol inhaler (Flovent HFA) dimethyl fumarate 240 mg 240 mg PO BID 09/29/22 02/29/24 capsule,delayed release (Tecfidera) montelukast 10 mg tablet 10 mg PO DAILY 12/18/23 02/29/24 Previous Rx's ?Medication ?Instructions ?Recorded naproxen 500 mg tablet 500 mg PO BID PRN pain #20 tabs 11/12/20 diclofenac sodium 1 % topical gel 4 g topical QID 30 days #240 grams 04/14/22 terazosin 1 mg capsule 1 mg PO BEDTIME 90 days #90 caps 09/29/22 bethanechol chloride 50 mg tablet 50 mg PO BID 90 days #180 tabs 09/12/23 prednisone 20 mg tablet 40 mg (2 x 20 mg) PO DAILY 5 days 08/09/24 #10 tabs Allergies Allergy/AdvReac Type Severity Reaction Status Date / Time seafood Allergy Severe Anaphylaxis Verified 08/09/24 12:04 pineapple Allergy redness Verified 08/09/24 12:04 and itching Review of Systems 2 Review of Systems: Left knee swelling pain Yes all other systems are reviewed and are negative [facility] Past Medical History Medical History (Updated 08/10/24 @ 00:00 by Background Daemon) GERD (gastroesophageal reflux disease) Multiple sclerosis Neurogenic bladder Incomplete emptying of bladder Primary osteoarthritis of right knee Primary osteoarthritis of left knee Thrombosed external hemorrhoid Surgical History History of surgery Social History Social History Alcohol intake: current Alcohol intake frequency: holidays/special occasions only Smoked in Last 30 Days: No Advance Directives: No Advance Directives Information Provided: No Do you have a plan to hurt others: No Plan Patient : No Current occupational status: disabled Current occupation: rt handed Physical Exam ED Vital Signs: Vital Signs - 24 hr 08/09/24 12:02 Temperature 98.4 F Pulse Rate 79 Respiratory Rate 18 Blood Pressure 123/59 L Pulse Oximetry 99 Oxygen Delivery Method Room Air BMI result Body Mass Index 34.4 Const General: cooperative, healthy appearing, comfortable, no acute distress and well developed Orientation/consciousness: patient oriented x3 HENMT Head: Yes normal to inspection, Yes No palpable skull fracture present, Yes normocephalic and Yes atraumatic Eyes General: appearance normal, both eyes and all related structures Neck Neck: Yes normal visual inspection, Yes full ROM, Yes no lymphadenopathy, Yes no meningeal signs, Yes trachea midline, Yes supple, No anterior neck swelling and No tender Chest Chest palpation & inspection: normal inspection of the chest and normal palpation of entire chest wall Resp Effort & Inspection: normal respiratory effort and able to speak in complete sentences Auscultation: clear to auscultation bilaterally Cardio Jugular venous distension: no JVD Heart sounds: S1 normal heart sound present and S2 normal heart sound present GI Inspection: Yes normal to inspection Palpation (GI): Soft to palpation, not firm, nontender, no guarding and not rigid General: Yes no CVA tenderness Back/Spine/Pelvis Back: no CVA tenderness and No back tenderness Skin General skin exam: no rashes or lesions noted, elasticity normal and turgor normal Neuro General: patient oriented x3, gait normal, tone normal, moves all extremities, Normal light touch and pain sensation, no meningeal signs, no focal motor deficits, CN's II-XI intact bilaterally and normal sensation to monofilament Extrem General: Yes normal to inspection, Yes full ROM and Yes capillary refill normal Knee images: 2 1. Positive for tenderness on swelling on palpation. Negative for any erythema, ecchymosis, deformity, hotness, or coldness. Negative for stiffness. Positive for posterior knee tenderness on palpation. Rest of extremity normal. Vascular motor neuro exam intact Psych Appearance: grossly normal, well kempt and not disheveled Course Course Course Narrative: This is a rapid medical exam performed by Ade James NP: Additional HPI, ROS, PE not included below will be deferred to primary provider. Patient is a 44-year-old female with history of MS, osteoarthritis of bilateral knees presenting with complaint of left knee pain and swelling for the past week. Difficulty with ambulation. Did not take any OTC medications for pain. Plan: x-ray, labs Medications Administered Discontinued Medications Generic Name Dose Route Start Last Admin Trade Name Freq PRN Reason Stop Dose Admin Ketorolac Tromethamine 30 mg 08/09/24 13:41 08/09/24 13:56 Ketorolac Tromethamine 30 Mg/Ml Vial IM 08/09/24 13:42 30 mg ONCE ONE Administration Prednisone 40 mg 08/09/24 13:41 08/09/24 13:56 Prednisone 20 Mg Tablet PO 08/09/24 13:42 40 mg ONCE ONE Administration Medical Decision Making Medical Decision Making [facility] Narrative: 24-year-old female presents to ED for left knee pain with history of severe arthritis. Patient usually gets cortisone shots but she has no appointment until August. Patient denies any recent trauma. X-ray shows severe arthritis but negative for any joint effusion. 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 Not suspecting septic joint. Not suspecting arterial occlusion, osteomyelitis, necrotizing fasciitis, compartment syndrome, lymphangitis, or any other life-threatening etiology. Patient explained worrisome signs and informed to return to the ED immediately. Patient informed to continue taking NSAID she was prescribed by PCP. Differential Diagnosis Differential Diagnoses: The differential diagnosis associated with the presentation includes (DVT, arthritis, Villalobos cyst) Admission/Observation Consideration of admission/observation: Escalation of care including admission/observation considered Lab Data [facility] Lab Attestation statement: I reviewed the patient's lab results. 08/09/24 12:28 08/09/24 12:28 Labs: Lab Results 08/09/24 Range/Units 12:28 WBC 5.3 (4.8-10.8) X10*3/uL RBC 4.23 (4.20-5.50) X10*6/uL Hgb 13.2 (12.0-16.0) g/dl Hct 38.2 (37.0-47.0) % MCV 90.3 (80.0-98.0) fL MCH 31.2 (27.0-33.0) pg MCHC 34.6 (31.0-35.0) g/dl RDW 14.2 (11.0-16.0) % Plt Count 192 (160-400) X10*3/uL MPV 11.3 (9.4-12.3) fL Immature Gran % (Auto) 0.4 (0.0-0.4) % Neut % (Auto) 62.5 (45-73) % Lymph % (Auto) 24.4 (20-40) % [place] % (Auto) 8.1 (2-11) % Eos % (Auto) 3.8 (0-4) % Baso % (Auto) 0.8 (0-2) % Lymph # (Auto) 1.3 (1.2-4.9) X10*3/uL [place] # (Auto) 0.4 (0.1-1.2) X10*3/uL Eos # (Auto) 0.2 (0.0-0.4) X10*3/uL Baso # (Auto) 0.0 (0.0-0.2) X10*3/uL Abs Immat Gran (auto) 0.02 (0.00-0.03) X10*3/uL Absolute Neuts (auto) 3.3 (2.0-8.3) x10*3/uL Absolute Nucleated RBC 0.000 (0.0-0.012) X10*3/uL Nucleated RBC % (auto) 0.0 (0.0-0.2) /100WBC ESR 3 (0-20) MM/HR Sodium 139 (135-145) mmol/L Potassium 4.5 (3.3-5.1) mmol/L Chloride 109 H (96-108) mmol/L Carbon Dioxide 23 (22-29) mmol/L Anion Gap 12 (12-20) BUN 10 (9-16) mg/dL Creatinine 0.59 (0.5-1.4) mg/dL Estim Creat Clear Calc 125.3 Estimated GFR > 60 Random Glucose 89 (60-115) mg/dL Calcium 9.1 (8.4-10.2) mg/dL Total Bilirubin 0.4 (0.0-1.0) mg/dL AST 19 (5-31) U/L ALT 27 (0-31) U/L Alkaline Phosphatase 49 (39-117) U/L C-Reactive Protein 0.43 (< or = 0.50) mg/dL Total Protein 7.3 (6.5-8.0) g/dL Albumin 4.0 (3.5-5.0) g/dL Independent Interpretation I performed an independent interpretation of an: Plain X-Ray and Ultrasound Radiology Impression Discussion of test interpretation with radiology: I have reviewed the radiologist's reading. Independent Historian Clinical information obtained from an independent historian. History obtained from or confirmed by: Other (Patient) Prescription Management I considered prescription management with: Pain Medication Discharge Plan Discharge Clinical Impression: Arthritis of knee, Villalobos's cyst of knee Patient Disposition: Home, Self-Care Instructions: Osteoarthritis (ED), Bakers Cyst (ED) Additional Instructions: Keep taking pain medication you were prescribed by primary care provider. You will be discharged with prednisone. X-ray negative for joint effusion. Ultrasound negative for blood clot. Ultrasound shows Villalobos cyst. Return to the ED immediately for any chest pain, shortness of breath, coughing up blood, fever, chills, worsening swelling of the knee, redness, calf pain, hotness, red streaks, stiffness, or any other concerning symptoms. FINDINGS: Respiratory variation, normal compression and augmented flow are noted throughout the left lower extremity. The visualized common femoral vein, superficial femoral vein, profunda femoral vein, popliteal vein and midcalf peroneal and posterior tibial venous segments show no evidence of deep venous thrombosis. There is a Villalobos cyst in the medial popliteal fossa measuring 1.2 x 6.4 x 1.5 cm. US/US venous duplex LE IMPRESSION: 1. No evidence of deep venous thrombosis involving the left lower extremity. 2. Moderate-sized Villalobos's cyst. Electronically signed by: Amadou Gonzales MD 08/09/2024 02:54 PM EDT EXAMINATION: XR KNEE 4 OR MORE VIEWS LEFT HISTORY: pain and swelling, hx OA COMPARISON: Comparison is made with the prior examination dated 12/18/2023. FINDINGS: Five views of the left knee are submitted. Osseous mineralization is normal. There is no fracture or dislocation. There is severe osteoarthritis of the lateral compartment with joint space narrowing and osteophyte formation. More moderate changes are noted involving the medial and patellofemoral compartments. The soft tissues are unremarkable. There is no joint effusion. XR/XR knee LT 4V IMPRESSION: Osteoarthritis of the left knee as described. Electronically signed by: Christiano Bragg MD 08/09/2024 12:23 PM EDT RP Prescriptions: New prednisone 20 mg tablet 40 mg PO DAILY 5 Days Qty: 10 0RF No Action bethanechol chloride 50 mg tablet 50 mg PO BID 90 Days Qty: 180 3RF naproxen 500 mg tablet 500 mg PO BID PRN (Reason: pain) Qty: 20 0RF ibuprofen 600 mg tablet 600 mg PO TID Flovent HFA 110 mcg/actuation HFA aerosol inhaler 0 mcg inhalation albuterol sulfate [ProAir HFA] 90 mcg/actuation HFA aerosol inhaler 0 mcg inhalation diclofenac sodium 1 % gel 4 g topical QID 30 Days Qty: 240 6RF Rx Instructions: dispense p4 compound cream montelukast 10 mg tablet 10 mg PO DAILY terazosin 1 mg capsule 1 mg PO BEDTIME 90 Days Qty: 90 3RF dimethyl fumarate [Tecfidera] 240 mg capsule,delayed release(DR/EC) 240 mg PO BID Referrals: [facility] [Provider Group] (Left knee arthritis. Villalobos cysts) Stand Alone Forms: Work/School Release Interventions: ED Discharge Assessment Last Done: 08/09/24 15:47 Discharge Date/Time: 08/09/24 15:48 Print Language: Macedonian
[2024-08-09 12:02] VITALS: BP 123/59; PULSE 79; RESP 18; TEMP 36.9; O2SAT 99; BMI 34.4
[2024-08-09 12:33] LABS: Basophils Percent Auto 0.8 % (0-2); Eosinophils Absolute Auto 0.2 X10*3/uL (0.0-0.4); Eosinophils Percent Auto 3.8 % (0-4); Hematocrit 38.2 % (37.0-47.0); Hemoglobin 13.2 g/dl (12.0-16.0); Imm Gran Abs Auto 0.02 X10*3/uL (0.00-0.03); Imm Gran Pct Auto 0.4 % (0.0-0.4); Lymphocytes Absolute Auto 1.3 X10*3/uL (1.2-4.9); Lymphocytes Percent Auto 24.4 % (20-40); MANUAL DIFF FLAG NO; Mean Corpuscular HGB Conc 34.6 g/dl (31.0-35.0); Mean Corpuscular Hemoglobin 31.2 pg (27.0-33.0); Mean Corpuscular Volume 90.3 fL (80.0-98.0); Mean Platelet Volume 11.3 fL (9.4-12.3); Monocytes Absolute Auto 0.4 X10*3/uL (0.1-1.2); Monocytes Percent Auto 8.1 % (2-11); Neutrophils Absolute Auto 3.3 x10*3/uL (2.0-8.3); Neutrophils Percent Auto 62.5 % (45-73); Platelet Count 192 X10*3/uL (160-400); Red Blood Count 4.23 X10*6/uL (4.20-5.50); Red Cell Distribution Width 14.2 % (11.0-16.0); White Blood Count 5.3 X10*3/uL (4.8-10.8)
[2024-08-09 12:47] LABS: Alanine Aminotransferase 27 U/L (0-31); Alkaline Phosphatase 49 U/L (39-117); Anion Gap 12 (12-20); Aspartate Amino Transferase 19 U/L (5-31); Bilirubin Total 0.4 mg/dL (0.0-1.0); Blood Urea Nitrogen 10 mg/dL (9-16); C Reactive Protein 0.43 mg/dL (< or = 0.50); Calcium 9.1 mg/dL (8.4-10.2); Carbon Dioxide 23 mmol/L (22-29); Chloride 109 mmol/L (96-108); Creatinine Clr Calc Pharmacy 125.3; Estimated Glomerular Filt Rate > 60; Glucose Random 89 mg/dL (60-115); Potassium 4.5 mmol/L (3.3-5.1); Sodium 139 mmol/L (135-145); Total Protein 7.3 g/dL (6.5-8.0)
[2024-08-09 13:16] LABS: Erythrocyte Sedimentation Rate 3 MM/HR (0-20)
[2024-08-09] MEDS: Ketorolac Tromethamine 30 MG/ML VIAL IM (13:56)
[2024-08-09] MEDS: predniSONE 20 MG TABLET 40 MG PO (13:56)
[2024-08-09 15:47] VITALS: BP 123/59; PULSE 79; RESP 18; TEMP 36.9; O2SAT 99
[2024-08-09 15:48] VITALS: BP 129/70; PULSE 70; RESP 18; TEMP 36.8; O2SAT 100
== END 2024-08-09 15:48 | disposition home or self-care (01) ==
PROVIDERS: Registered Nurse Emergency; Emergency Provider Emergency Medicine; PCP Internal Medicine
DX: M71.22 Synovial cyst of popliteal space [Baker], left knee (principal); M17.12 Unilateral primary osteoarthritis, left knee; R60.0 Localized edema; Z79.899 Other long term (current) drug therapy
CPT/HCPCS: 36415; 73564; 80053; 85025; 85652; 86140; 93971; 96372; 99284; J1885

== ENCOUNTER → 2024-08-09 12:04 | Outpatient (BNV) | payer MEDICAID, SELFPAY | PROVIDERS: PCP Internal Medicine; Visit Provider Radiology Diagnostic Radiology | DX: M71.22 Synovial cyst of popliteal space [Baker], left knee (principal); M17.12 Unilateral primary osteoarthritis, left knee | CPT/HCPCS: 73564; 93971 ==

== ENCOUNTER 2024-08-12 10:16 | Outpatient (REF) | payer MEDICAID, SELFPAY ==
[2024-08-12 13:03] LABS: MANUAL DIFF FLAG NO
[2024-08-12 13:18] LABS: Basophils Percent Auto 0.4 % (0-2); Eosinophils Percent Auto 0.4 % (0-4); Hematocrit 38.1 % (37.0-47.0); Hemoglobin 12.6 g/dl (12.0-16.0); Imm Gran Abs Auto 0.03 X10*3/uL (0.00-0.03); Imm Gran Pct Auto 0.4 % (0.0-0.4); Lymphocytes Absolute Auto 1.7 X10*3/uL (1.2-4.9); Lymphocytes Percent Auto 20.5 % (20-40); Mean Corpuscular HGB Conc 33.1 g/dl (31.0-35.0); Mean Corpuscular Hemoglobin 30.6 pg (27.0-33.0); Mean Corpuscular Volume 92.5 fL (80.0-98.0); Monocytes Absolute Auto 0.4 X10*3/uL (0.1-1.2); Monocytes Percent Auto 4.3 % (2-11); Platelet Count 184 X10*3/uL (160-400); Red Blood Count 4.12 X10*6/uL (4.20-5.50); Red Cell Distribution Width 14.4 % (11.0-16.0); White Blood Count 8.1 X10*3/uL (4.8-10.8)
[2024-08-12 14:06] LABS: Alanine Aminotransferase 21 U/L (0-31); Albumin Level 4.1 g/dL (3.5-5.0); Alkaline Phosphatase 42 U/L (39-117); Anion Gap 10 (12-20); Aspartate Amino Transferase 13 U/L (5-31); Bilirubin Total 0.4 mg/dL (0.0-1.0); Blood Urea Nitrogen 9 mg/dL (9-16); Calcium 9.1 mg/dL (8.4-10.2); Carbon Dioxide 25 mmol/L (22-29); Chloride 110 mmol/L (96-108); Cholesterol 190 mg/dL (<200); Estimated Glomerular Filt Rate > 60; Glucose Random 97 mg/dL (60-115); HDL Cholesterol 69 mg/dL (>40); LDL Cholesterol Calculated 107 mg/dL (<100); Potassium 3.9 mmol/L (3.3-5.1); Sodium 141 mmol/L (135-145); Total Protein 7.2 g/dL (6.5-8.0); Triglycerides 74 mg/dL (<150)
== END 2024-08-12 10:17 | disposition home or self-care (01) ==
LOC: HO.10HDL 10:16
PROVIDERS: Visit Provider Internal Medicine
DX: Z00.00 Encounter for general adult medical examination without abnormal findings (principal); G43.909 Migraine, unspecified, not intractable, without status migrainosus; H81.391 Other peripheral vertigo, right ear; E78.00 Pure hypercholesterolemia, unspecified
CPT/HCPCS: 36415; 80053; 80061; 85025

== ENCOUNTER 2024-09-19 09:41 | Outpatient (REF) | payer MEDICAID, SELFPAY | END 2024-09-19 09:42 | disposition home or self-care (01) | LOC: HO.MAMMO 09:41 | PROVIDERS: PCP Internal Medicine; Visit Provider Internal Medicine | DX: Z12.31 Encounter for screening mammogram for malignant neoplasm of breast (principal) | CPT/HCPCS: 77063; 77067 ==

== ENCOUNTER → 2024-09-19 10:15 | Outpatient (BNV) | payer MEDICAID, SELFPAY | PROVIDERS: PCP Internal Medicine; Visit Provider Internal Medicine | DX: Z12.31 Encounter for screening mammogram for malignant neoplasm of breast (principal) | CPT/HCPCS: 77063; 77067 ==

== ENCOUNTER 2024-10-28 11:21 | Outpatient (AMB) | payer MEDICAID, SELFPAY ==
--- NOTE | 2024-10-28 11:43 | A.OFFVIS_ITS ---
Vital Signs 10/28/24 11:44 Height 5 ft 3 in Weight 190 lb BMI 33.7 BP 115/60 Blood Pressure Location Lt brachial Position Sitting Respiration 16 Pulse 78 Pulse Source Pulse Oximeter Pulse Oximetry (%) 98 Oxygen Delivery Method Room Air Intake Visit Reasons: Unilateral primary OA, left/right knee Jr. Systems Administrator Required: No Allergies seafood Allergy (Severe, Verified 10/28/24 11:46) Anaphylaxis pineapple Allergy (Verified 10/28/24 11:46) redness and itching Medication List - Last Reconciled 10/28/24 by Willa Cota LPN albuterol sulfate 90 mcg/actuation (ProAir HFA) 0 mcg inhalation bethanechol chloride 50 mg PO BID 90 days diclofenac sodium 1% 4 grams topical QID 30 days dimethyl fumarate (Tecfidera) 240 mg PO BID fluticasone propionate 110 mcg/actuation (Flovent HFA) 0 mcg inhalation ibuprofen 600 mg PO TID montelukast 10 mg PO DAILY naproxen 500 mg PO BID PRN terazosin 1 mg PO BEDTIME 90 days HPI HPI Unilateral primary OA, left/right knee: Details: History of Present Illness The patient is a 44-year-old female presenting with chronic knee pain. She previously underwent gel injections six months ago but found them ineffective. She experiences constant pain in both knees, which shows no improvement. Her right knee may benefit from PRP treatment, whereas the left knee's response is uncertain due to advanced joint disease severity. Surgical options are complicated by her multiple sclerosis. Considering past unsuccessful treatments, other alternatives such as nerve stimulation are being explored, with possible surgery discussion in the future considering age and disease factors. Pain Description - Onset: Pain began more than six months ago. - Quality: Persistent, unresponsive to previous treatments. - Primary Location: Bilateral knees, with similar pain intensity in both knees. - Exacerbating Factors: Severe joint disease noted in the left knee. - Relieving Factors: None identified; gel injections were ineffective. - Activities Affected: Ambulation, impacted by chronic pain and MS. Physical Exam - Appears afebrile. - Alert and oriented. - Mood and affect appropriate. - Follows and participates in conversation appropriately. - Respiratory effort is unlabored. - Able to transition from sit to stand unassisted. - Ambulates with bilaterally normal heel strike and toe off. - Able to stand and walk on toes and heels. Pain Management - Affect: The possibility of surgery is limited due to multiple sclerosis complications. - Analgesia: Gel injections were previously used but ineffective; currently considering PRP therapy. - Adverse Effects: None reported from current or past treatments. - Activities of Daily Living: Ambulation affected by knee pain and MS. - Aberrant Drug-Related Behaviors: None reported. [facility] Medical History (Updated 08/10/24 @ 00:00 by Mis Perez) GERD (gastroesophageal reflux disease) Multiple sclerosis Neurogenic bladder Incomplete emptying of bladder Primary osteoarthritis of right knee Primary osteoarthritis of left knee Thrombosed external hemorrhoid Surgical History History of surgery Social History (Reviewed 03/14/24 @ 10: by LUPE Melendez) Alcohol intake: current Alcohol intake frequency: holidays/special occasions only Current occupational status: disabled Current occupation: rt handed Physical Exam Vital Signs: Last Vital Signs Pulse 78 10/28/24 11:44 Resp 16 10/28/24 11:44 BP 115/60 10/28/24 11:44 Pulse Ox 98 10/28/24 11:44 Oxygen Delivery Method Room Air 10/28/24 11:44 BMI result Body Mass Index 33.7 Assessment & Plan Assessment & Plan (1) Primary osteoarthritis of left knee: Code(s): M17.12 - Unilateral primary osteoarthritis, left knee Category: Medical (2) Primary osteoarthritis of right knee: Code(s): M17.11 - Unilateral primary osteoarthritis, right knee Category: Medical Plan Plan - Schedule PRP injections: left knee with Alpha-2 microglobulin; right knee straight PRP. - Educate the patient about temporary nerve stimulation, providing brochures. - Future surgery consideration as she ages, contingent on MS status. Patient was informed and verbally consented to the use of an ambient scribe for clinic note documentation during this visit. Discussion Notes I discussed with the patient the possibility and rationale for pursuing PRP therapy for both knees, with the left knee involving an additional Alpha-2 microglobulin injection due to severe joint disease. We discussed the potential benefits and uncertain outcomes, particularly for the left knee. The risks associated with surgery in the context of her MS were outlined, particularly the recovery challenges. I introduced the concept of temporary nerve stimulation as an alternative to manage pain if PRP is not effective, and provided brochures in [place]itian and [place]ian for educational purposes. Follow-up will be scheduled to assess the effectiveness of the interventions. Patient Instructions - Proceed with scheduling PRP injections for knees. - Review provided brochures for understanding PRP therapy and nerve stimulation options. - Consider future surgical intervention after 53 years of age if pain persists and PRP/nervous stimulation options are ineffective. - Monitor and report any adverse outcomes following PRP treatment. Coding Level of Care Code New Pt Level 3 (96429) Diagnoses Primary osteoarthritis of left knee M17.12 Primary osteoarthritis of right knee M17.11
[2024-10-28 11:44] VITALS: BP 115/60; PULSE 78; RESP 16; O2SAT 98; BMI 33.7
== END 2024-10-28 12:29 | disposition home or self-care (01) ==
LOC: HO.PMC 11:21
PROVIDERS: PCP Internal Medicine; Referring Provider Physician Assistant; Visit Provider Internal Medicine
DX: M17.0 Bilateral primary osteoarthritis of knee (principal)
CPT/HCPCS: 99213

== ENCOUNTER → 2024-10-28 11:21 | Outpatient (BNVA) | payer MEDICAID, SELFPAY | PROVIDERS: PCP Internal Medicine; Referring Provider Physician Assistant; Visit Provider Internal Medicine | DX: M17.0 Bilateral primary osteoarthritis of knee (principal) | CPT/HCPCS: 99212 ==

== ENCOUNTER 2024-11-01 07:33 | Emergency (ER) | payer MEDICAID, SELFPAY ==
[2024-11-01 07:37] VITALS: BP 114/68; PULSE 85; RESP 16; TEMP 36.3; O2SAT 98; BMI 32.5
[2024-11-01 08:01] LABS: IDNOW Serial# 58CA691E
[2024-11-01 08:02] LABS: Strep A Nucleic Acid Negative (Negative)
[2024-11-01 08:26] LABS: Influenza A PCR NEGATIVE (Negative); Influenza B PCR NEGATIVE (Negative); Resp Syncy Virus RNA Qual PCR NEGATIVE (Negative); SARS COV2 PCR INHOUSE NEGATIVE (Negative)
--- NOTE | 2024-11-01 08:33 | ED.GENADULT ---
HPI - General Adult General Chief complaint: General Medical Stated complaint: Throat Issues Time Seen by Provider: 11/01/24 08:23 Source: patient, family and old records reviewed Mode of arrival: ambulatory Limitations: no limitations History of Present Illness ED Provider: FLAVIA MANN narrative: 44 yo female with PMH of MS on oral medications who reports 4 days of sore throat, nasal congestion and hoarse voice. No fevers, no CP/SOB, no n/v/d. She denie travel or sick contacts. She is not on chronic prednisone. MD complaint: URI Onset (ago): day(s) (4) Location: mouth Radiation: non-radiation Severity: mild Quality: aching Pain Consistency: intermittent Relieving factors: none Exacerbating factors: other (swallowing) Associated symptoms: denies other symptoms Treatments prior to arrival: none Related Data Home Medications ?Medication ?Instructions ?Recorded ?Confirmed ibuprofen 600 mg tablet 600 mg PO TID headache 03/03/21 10/28/24 albuterol sulfate 90 mcg/actuation 0 mcg inhalation 05/03/21 10/28/24 aerosol inhaler (ProAir HFA) fluticasone propionate 110 0 mcg inhalation 05/03/21 10/28/24 mcg/actuation HFA aerosol inhaler (Flovent HFA) dimethyl fumarate 240 mg 240 mg PO BID 09/29/22 10/28/24 capsule,delayed release (Tecfidera) montelukast 10 mg tablet 10 mg PO DAILY 12/18/23 10/28/24 Previous Rx's ?Medication ?Instructions ?Recorded naproxen 500 mg tablet 500 mg PO BID PRN pain #20 tabs 11/12/20 diclofenac sodium 1 % topical gel 4 g topical QID 30 days #240 grams 04/14/22 bethanechol chloride 50 mg tablet 50 mg PO BID 90 days #180 tabs 09/12/23 terazosin 1 mg capsule 1 mg PO BEDTIME 90 days #90 caps 09/17/24 azithromycin 250 mg tablet See Rx Instructions PO .COMPLEX #6 11/01/24 tabs Allergies Allergy/AdvReac Type Severity Reaction Status Date / Time seafood Allergy Severe Anaphylaxis Verified 11/01/24 07:38 pineapple Allergy redness Verified 11/01/24 07:38 and itching Review of Systems Review of Systems: Constitutional : no Fever, no Chills ENT/Mouth : positive sore throat, positive runny nose Eyes: No Discharge Cardiovascular : No Chest Pain, No SOB Respiratory : No Cough, No Sputum Gastrointestinal : No Nausea, No Vomiting, No Diarrhea Genitourinary : No Dysuria, No Urinary Frequency Musculoskeletal : no Myalgia Skin : No rash Neuro : No Headache all other systems reviewed and are negative [facility] Past Medical History Attestation statement: The following information was validated with the patient. Source: old records reviewed Medical History GERD (gastroesophageal reflux disease) Multiple sclerosis Neurogenic bladder Incomplete emptying of bladder Primary osteoarthritis of right knee Primary osteoarthritis of left knee Thrombosed external hemorrhoid Surgical History History of surgery Social History Social History Alcohol intake: current Alcohol intake frequency: holidays/special occasions only Advance Directives: No Advance Directives Information Provided: Yes Do you have a plan to hurt others: No Plan Current occupational status: disabled Current occupation: rt handed Physical Exam ED Vital Signs: Vital Signs - 24 hr 11/01/24 07:37 Temperature 97.4 F Pulse Rate 85 Respiratory Rate 16 Blood Pressure 114/68 Pulse Oximetry 98 Oxygen Delivery Method Room Air BMI result Body Mass Index 32.5 Appearance: Alert. Oriented X3. No acute distress. Eyes: Pupils equal, round and reactive to light. ENT: Pharynx very mild erythema no swelling and no exudates. TMs normal bilaterally Neck: Normal inspection. Neck supple. no lymphadenopathy CVS: Normal heart rate and rhythm. Pulses normal. Respiratory: No respiratory distress. Breath sounds normal. Abdomen: Soft and nontender. Skin: Skin warm and dry. Normal skin color. Normal skin turgor. Extremities: No lower extremity edema. No calf ttp Neuro: Oriented X 3. No motor deficit. No sensory deficit. CN2-12 intact Medical Decision Making Medical Decision Making MDM Narrative: 44 yo female with PMH of MS on oral medications here with URI symptoms lungs are CTAB, suspect more viral syndrome and no signs of INVENTORY AND PRICING ASSOCIATE or retro abscess on exam. She is not toxic and well hydrated. At this time discussed management at home and care. Given precautions to return. Strep and viral panel ordered. Differential Diagnosis Differential Diagnoses: The differential diagnosis associated with the presentation includes Admission/Observation Consideration of admission/observation: Escalation of care including admission/observation considered not toxic no sign of deeper space infection such as retro abscess or INVENTORY AND PRICING ASSOCIATE will DC with zpak if fevers > 100.4 or not improved in 72 hours given MS and meds Lab Data MDM Lab Attestation statement: I reviewed the patient's lab results. Labs: Lab Results 11/01/24 Range/Units 07:43 Influenza Type A (PCR) NEGATIVE (Negative) Influenza Type B (PCR) NEGATIVE (Negative) RSV RNA Qual (PCR) NEGATIVE (Negative) SARS-CoV-2 RNA (RT-PCR) NEGATIVE (Negative) S. pyogenes GrpA TOMASZ Negative (Negative) Independent Historian Clinical information obtained from an independent historian. History obtained from or confirmed by: Spouse External Record Review External record reviewed: Outpatient record Prescription Management I considered prescription management with: Antibiotic Discharge Plan Discharge Clinical Impression: Laryngitis Patient Disposition: Home, Self-Care Instructions: Pharyngitis (ED) Additional Instructions: negative for covid, flu, rsv, strep throat gargle with salt water return for any worsening symptoms or concerns if you develop a fever over 100.4 or no improvement in 72 hours please start zpak On azithromycin, call your provider if you develop new ringing in your ears, new problems hearing, dizziness, palpitations, abdominal pain, nausea, or diarrhea. Prescriptions: New azithromycin 250 mg tablet See Rx Instructions .ROUTE .COMPLEX Qty: 6 0RF Rx Instructions: For 250 mg dose pack: take 500 mg today (day 1), then 250 mg for 4 days (days 2-5) No Action bethanechol chloride 50 mg tablet 50 mg PO BID 90 Days Qty: 180 3RF terazosin 1 mg capsule 1 mg PO BEDTIME 90 Days Qty: 90 1RF naproxen 500 mg tablet 500 mg PO BID PRN (Reason: pain) Qty: 20 0RF ibuprofen 600 mg tablet 600 mg PO TID Flovent HFA 110 mcg/actuation HFA aerosol inhaler 0 mcg inhalation albuterol sulfate [ProAir HFA] 90 mcg/actuation HFA aerosol inhaler 0 mcg inhalation diclofenac sodium 1 % gel 4 g topical QID 30 Days Qty: 240 6RF Rx Instructions: dispense p4 compound cream montelukast 10 mg tablet 10 mg PO DAILY dimethyl fumarate [Tecfidera] 240 mg capsule,delayed release(DR/EC) 240 mg PO BID Print Language: Telugu
[2024-11-01 08:46] VITALS: BP 112/68; PULSE 88; RESP 16; TEMP 36.7; O2SAT 98
== END 2024-11-01 08:46 | disposition home or self-care (01) ==
PROVIDERS: Emergency Provider Emergency Medicine; PCP Internal Medicine
DX: J04.0 Acute laryngitis (principal); Z03.818 Encounter for observation for suspected exposure to other biological agents ruled out
CPT/HCPCS: 0241U; 87651; 99282; 99283

== ENCOUNTER 2024-11-11 10:28 | Outpatient (AMB) | payer MEDICAID, SELFPAY ==
[2024-11-11 10:31] VITALS: BP 111/59; PULSE 82; RESP 16; O2SAT 99; BMI 32.8
--- NOTE | 2024-11-11 10:31 | MHC.OFFVIS ---
Vital Signs 11/11/24 10:31 Height 5 ft 4 in Weight 191 lb BMI 32.8 BP 111/59 L Blood Pressure Location Lt brachial Position Sitting Respiration 16 Pulse 82 Pulse Source Pulse Oximeter Pulse Oximetry (%) 99 Oxygen Delivery Method Room Air Intake Visit Reasons: Pt CANNOT have PRP Certified Orthotist Practice Manager Required: No Allergies seafood Allergy (Severe, Verified 11/20/24 09:16) Anaphylaxis pineapple Allergy (Verified 11/20/24 09:16) redness and itching HPI HPI Pt CANNOT have PRP: Details: History of Present Illness The patient is a 44-year-old female presenting with chronic knee pain primarily in the left knee. Over the course of her condition, she has noted increased discomfort, particularly upon putting weight on the affected limb, accompanied by sensations of scratching and cracking. Furthermore, she experiences mild swelling in the knee, which she attempts to alleviate with daily Epsom salt baths. In the past, the patient tried a prescribed leg brace aimed at correcting her knee?s valgus deformity, but discomfort and skin bruising led to cessation of its use. Previous clinical advice highlighted her age as a limiting factor against surgical intervention. The patient continues to experience significant challenges in managing her knee pain and seeks alternative treatment options that would not require surgical involvement. Pain Description - Onset and Timing: Chronic in nature - Quality and Character: Scratching and cracking sensations upon weight-bearing - Location: Primarily left knee - Exacerbating Factors: Weight-bearing and stepping on the affected leg - Relieving Factors: Epsom salt baths provide some relief - Interferences: Affects mobility and daily activities due to pain and discomfort Physical Exam - Musculoskeletal- Notable valgus deformity of the left knee and mild soft tissue swelling with edema noted. Pain Management - Affect: Impact on quality of life due to mobility issues and continuous discomfort. - Analgesia: Epsom salt baths used for temporary pain relief. - Adverse Effects: Bruising and discomfort from previously used leg brace. - Activities of Daily Living: Pain and swelling impact mobility. - Aberrant Drug Related Behaviors: None reported in conversation. [facility] Medical History (Updated 11/26/24 @ 13:21 by Damir Reid MD) Chronic knee pain Dysphagia Constipation Colon cancer screening GERD (gastroesophageal reflux disease) Multiple sclerosis Neurogenic bladder Incomplete emptying of bladder Primary osteoarthritis of right knee Primary osteoarthritis of left knee Thrombosed external hemorrhoid Surgical History History of surgery Family History (Updated 11/20/24 @ 09:44 by Jeanne Liao CNP) Mother Arthritis Social History Alcohol intake: current Alcohol intake frequency: holidays/special occasions only Current occupational status: disabled Current occupation: rt handed Physical Exam Vital Signs: Last Vital Signs Pulse 82 11/11/24 10:31 Resp 16 11/11/24 10:31 BP 111/59 L 11/11/24 10:31 Pulse Ox 99 11/11/24 10:31 Oxygen Delivery Method Room Air 11/11/24 10:31 BMI result Body Mass Index 32.8 Assessment & Plan Assessment & Plan (1) Osteoarthritis of knees, bilateral: Code(s): M17.0 - Bilateral primary osteoarthritis of knee Category: Medical Qualifiers: Osteoarthritis type: primary Qualified Code(s): M17.0 - Bilateral primary osteoarthritis of knee (2) Chronic knee pain: Code(s): M25.569 - Pain in unspecified knee; G89.29 - Other chronic pain Category: Medical Plan Plan - Implement temporary saphenous nerve stimulator initially on the left side for chronic knee pain not responsive to other modalities. - Monitor for effectiveness over four weeks, with a plan to remove early if insufficient improvement is noted. - Suspend use of Epsom salt baths while the stimulator is in situ. - Educate patient on stimulator use and care. Patient was informed and verbally consented to the use of an ambient scribe for clinic note documentation during this visit. Discussion Notes We discussed the limitation of dudley-paid procedures due to Medicaid coverage constraints and explored temporary nerve stimulation as a possible treatment path. I informed the patient of the stimulator's process, efficacy rates, and procedural guidelines, such as not engaging in activities like swimming. I emphasized the importance of removing Epsom salt baths temporarily to evaluate the stimulator's full impact and scheduled a reassessment of its effectiveness in four weeks, with consent for early removal if necessary. We reviewed care instructions for managing the stimulator, including adjusting the battery and dressing changes, which the patient consented to and expressed comprehension of the potential benefits and absence of adverse side effects related to this approach. Patient Instructions - Do not engage in swimming, tub bathing, or other activities that immerse the leg in water while the stimulator is in place. - Follow stimulator care instructions including battery removal while showering and changing dressings as needed. - Monitor for changes in pain levels, and report to the clinic if the stimulator causes discomfort or if there is no improvement in four weeks. - Abstain from using Epsom salt baths during the treatment period. Coding Level of Care Code Est Pt Level 3 (78776) Diagnoses Primary osteoarthritis of both knees M17.0 Osteoarthritis type: primary Chronic knee pain M25.569; G89.29
== END 2024-11-11 10:51 | disposition home or self-care (01) ==
LOC: HO.PMC 10:29
PROVIDERS: PCP Internal Medicine; Visit Provider Internal Medicine
DX: M17.0 Bilateral primary osteoarthritis of knee (principal); M25.569 Pain in unspecified knee; G89.29 Other chronic pain
CPT/HCPCS: 99213

== ENCOUNTER → 2024-11-11 10:28 | Outpatient (BNVA) | payer MEDICAID, SELFPAY | PROVIDERS: PCP Internal Medicine; Visit Provider Internal Medicine | DX: M17.0 Bilateral primary osteoarthritis of knee (principal); M25.561 Pain in right knee; M25.562 Pain in left knee; G89.29 Other chronic pain; R60.0 Localized edema | CPT/HCPCS: 99212 ==

== ENCOUNTER 2024-11-20 09:04 | Outpatient (AMB) | payer MEDICAID, SELFPAY ==
--- NOTE | 2024-11-20 09:13 | A.OFFVIS_ITS ---
Vital Signs 11/20/24 09:15 Height 5 ft 4 in Weight 191 lb BMI 32.8 BP 98/66 Blood Pressure Location Lt brachial Position Sitting Pulse 73 Pulse Oximetry (%) 97 Oxygen Delivery Method Room Air Intake Visit Reasons: [place] screening r/s 10/04/24 Intake Note: Patient new consult for 1st pre Colonoscopy screening. Patient cc: heartburn, constipation with bloody hemorrhoids on and off, and choking with saliva. Denies any other GI issues. Crane Engineer Required: No Accompanied by: Mother Allergies seafood Allergy (Severe, Verified 11/20/24 09:16) Anaphylaxis pineapple Allergy (Verified 11/20/24 09:16) redness and itching Medication List - Last Reconciled 11/20/24 by Jeanne Liao CNP albuterol sulfate 90 mcg/actuation (ProAir HFA) 0 mcg inhalation bethanechol chloride 50 mg PO BID 90 days diclofenac sodium 1% 4 grams topical QID 30 days dimethyl fumarate (Tecfidera) 240 mg PO BID fluticasone propionate 110 mcg/actuation (Flovent HFA) 0 mcg inhalation ibuprofen 600 mg PO TID montelukast 10 mg PO DAILY terazosin 1 mg PO BEDTIME 90 days HPI HPI [place] screening r/s 10/04/24: Details: Patient is a 44-year-old female with PMH of multiple sclerosis, OA, asthma, depression, neurogenic bladder and GERD. Referred by PCP for pre colonoscopy screening. Patient is accompanied by mother. This will be Leyra first colonoscopy. She reports chronic constipation for approximately 10 years. Her bowel movements occur about twice a week, and the consistency is hard, often requiring the use of Miralax or stool softeners to alleviate discomfort. She occasionally strains and has noted a light pink coloration on the toilet paper, but denies blood in the stool itself. She experiences no abdominal pain, nausea, vomiting, or appetite changes and passes gas regularly. Shama also reports experiencing GERD, manifested as heartburn almost daily, typically three times a week. She takes Tums occasionally for relief but avoids other medications due to a preference against them, although she agrees to start omeprazole for better management. Additionally, Shama has difficulty swallowing her saliva, a condition persisting for about 10 years. Although she eats and drinks without issue, she experiences choking on her own saliva. She has known MS. Patient denies: fever/chills, , regurgitation, unintentional wt loss, ab pain or melena/hematochezia. Social History Diet: Typically consumes eggs for breakfast, skips lunch, snacks in the afternoon, and has a substantial dinner including steak and rice. Admits to a low intake of fruits and vegetables. Alcohol/Tobacco/Drug Use: Consumes alcohol occasionally, about once every other weekend (1-2 drinks). Denies use of tobacco or recreational drugs. Occupation: Patient has a [employer] for daily assistance. - family hx as below -denies personal hx of CA -denies significant cardiopulmonary history -tolerated anesthesia in the past without difficulty. [facility] Medical History (Updated 11/21/24 @ 07:47 by Jeanne Liao CNP) Dysphagia Constipation Colon cancer screening GERD (gastroesophageal reflux disease) Multiple sclerosis Neurogenic bladder Incomplete emptying of bladder Primary osteoarthritis of right knee Primary osteoarthritis of left knee Thrombosed external hemorrhoid Surgical History History of surgery Family History (Updated 11/20/24 @ 09:44 by Jeanne Liao CNP) Mother Arthritis Social History Alcohol intake: current Alcohol intake frequency: holidays/special occasions only Current occupational status: disabled Current occupation: rt handed Review of Systems Const Reports as per HPI ENT Reports as per HPI Card Reports as per HPI Resp Reports as per HPI GI Reports as per HPI Reports as per HPI Physical Exam Vital Signs: Last Vital Signs Pulse 73 11/20/24 09:15 BP 98/66 11/20/24 09:15 Pulse Ox 97 11/20/24 09:15 Oxygen Delivery Method Room Air 11/20/24 09:15 BMI result Body Mass Index 32.8 Const General: healthy appearing, no acute distress and well developed Nutritional Appearance: well nourished Orientation/consciousness: patient oriented x3 HEENT Head: Yes normal to inspection, Yes normocephalic and Yes atraumatic Face and sinus: Yes normal facial exam Eyes General: appearance normal, both eyes and all related structures Neck Neck: Yes normal visual inspection Resp Effort & Inspection: normal respiratory effort, able to speak in complete sentences, no tracheal deviation and symmetric chest movement Auscultation: clear to auscultation bilaterally Cardio Jugular venous distension: no JVD Rate: regular rate Rhythm: regular rhythm Heart sounds: S1 normal heart sound present, S2 normal heart sound present, no gallops and no murmurs GI Inspection: Yes normal to inspection and No distended Palpation (GI): Soft to palpation, not firm, nontender and No hepatosplenomegaly present Auscultation: normal bowel sounds Neuro General: patient oriented x3 Gait exam (Neuro): Normal gait present Psych Appearance: grossly normal Mental Status: mental status grossly normal Speech and movement: Normal speech and movement present Affect: normal affect Attitude: cooperative Thought process: Normal thought process present Thought content: Normal thought content present Insight: Good insight present (Psych) Judgement: Good judgement present (Psych) Assessment & Plan Assessment & Plan (1) Colon cancer screening: Code(s): Z12.11 - Encounter for screening for malignant neoplasm of colon Category: Medical Plan: Due for index screening colonoscopy. Medications: -prescriptions for laxative tablets and MiraLax sent to pharmacy; instructions for Gatorade purchase and clear liquid diet given. Patient educated on scheduling process, procedure preparation, including avoiding certain foods and ensuring clear liquid intake Advised on necessity for ride post-procedure due to sedation. (2) Constipation: Code(s): K59.00 - Constipation, unspecified Category: Medical Qualifiers: Constipation type: unspecified constipation type Qualified Code(s): K59.00 - Constipation, unspecified Plan: Chronic constipation, secondary constipation due to MS. 07/2024 labs negative for anemia with normal electrolytes and LFTs. Additional Tests: None at this time, assess response to increased fiber and da femi Miralax Medications: Prescribe Miralax 2 bottles, one for daily use, another for prep Reinforced lifestyle modifications to promote regularity: -higher fiber diet, examples provided -adequate hydration with water -150 minutes of moderate intensity exercise per week (3) Dysphagia: Code(s): R13.10 - Dysphagia, unspecified Category: Medical Qualifiers: Dysphagia type: unspecified Qualified Code(s): R13.10 - Dysphagia, unspecified Plan: Likely secondary to MS. However, will proceed with below testing to r/o Esophageal stricture or any structural abnormalities Additional Tests: Upper endoscopy during colonoscopy, barium swallow study Lifestyle Modifications: Avoid trigger foods, eat smaller meals, stay upright for 2 hours post-meal, avoid NSAIDs (4) GERD (gastroesophageal reflux disease): Code(s): K21.9 - Gastro-esophageal reflux disease without esophagitis Category: Medical Qualifiers: Esophagitis presence: esophagitis presence not specified Qualified Code(s): K21.9 - Gastro-esophageal reflux disease without esophagitis Plan: Chronic, partial relief with OTC antacids Additional Tests: Upper endoscopy during colonoscopy, possibly a swallow study Medications: Omeprazole 20mg oral daily Encouraged to take omeprazole as prescribed, taken at least 30-60 minutes before a meal. Education on GERD prevention : -Advised against heavy meals; encouraged small, frequent meals instead of large ones. - Instructed to remain upright for 2?3 hours after eating. - Advised to avoid late-night meals, spicy foods, caffeine, alcohol, known dietary triggers, and tight-fitting clothing. - Emphasis placed on gradual implementation of lifestyle changes to improve adherence and symptom control. Plan Follow up in 8 weeks or sooner as needed Time: I spent a total of 45 minutes on the date of encounter which includes: Preparing to see the patient (reviewed previous documentation, test results and medical history) Performing a medically appropriate exam and/or evaluation Ordering medications, tests, and procedures Documenting clinical information in the health record Orders: Orders [place] barium swallow 11/20/24 R13.10 - Dysphagia, unspecified Medications: New polyethylene glycol 3350 (Miralax) Take 17G (one cap full) daily with 8oz of water 17 grams PO DAILY 510 grams 2RF constipation 30 days polyethylene glycol 3350 (Miralax) per colonoscopy prep instructions 238 grams PO ONCE 238 grams 0RF bisacodyl Take four tablets once for 1 day per colonoscopy instructions 5 mg PO ONCE 4 tabs 0RF 1 day omeprazole 20 mg PO DAILY 90 caps 1RF Coding Level of Care Code New Pt New Pt Level 4 (95509) Patient Type New Diagnoses Colon cancer screening Z12.11 Constipation, unspecified constipation type K59.00 Constipation type: unspecified constipation type Dysphagia, unspecified type R13.10 Dysphagia type: unspecified Gastroesophageal reflux disease, unspecified whether esophagitis present K21.9 Esophagitis presence: esophagitis presence not specified
[2024-11-20 09:15] VITALS: BP 98/66; PULSE 73; O2SAT 97; BMI 32.8
== END 2024-11-20 10:00 | disposition home or self-care (01) ==
PROVIDERS: PCP Internal Medicine; Visit Provider Nurse Practitioner Family
DX: Z01.818 Encounter for other preprocedural examination (principal); Z12.11 Encounter for screening for malignant neoplasm of colon; K59.00 Constipation, unspecified; R13.10 Dysphagia, unspecified; K21.9 Gastro-esophageal reflux disease without esophagitis
CPT/HCPCS: 99204

== ENCOUNTER → 2024-11-20 09:04 | Outpatient (BNVA) | payer MEDICAID, SELFPAY | PROVIDERS: PCP Internal Medicine; Visit Provider Nurse Practitioner Family | DX: Z12.11 Encounter for screening for malignant neoplasm of colon (principal); K59.00 Constipation, unspecified; R13.10 Dysphagia, unspecified; K21.9 Gastro-esophageal reflux disease without esophagitis | CPT/HCPCS: 99212 ==

== ENCOUNTER 2024-11-28 13:35 | Outpatient (REF) | payer MEDICAID, SELFPAY | END 2024-11-28 13:36 | disposition home or self-care (01) | LOC: HO.LNP 13:35 | PROVIDERS: PCP Internal Medicine; Visit Provider Nurse Practitioner Family | DX: N31.9 Neuromuscular dysfunction of bladder, unspecified (principal); R31.29 Other microscopic hematuria; Z13.89 Encounter for screening for other disorder | CPT/HCPCS: 51798; 81003; 88112; 99212 ==

== ENCOUNTER 2024-11-28 13:35 | Outpatient (AMB) | payer MEDICAID, SELFPAY ==
--- NOTE | 2024-11-28 13:37 | A.OFFVIS_ITS ---
Intake Visit Reasons: follow up/ med review Intake Note: Patient presents today for follow up on: neurogenic bladder and microscopic hematuria Urology Medications: Bethanechol Blood Thinner: none PVR: 0ml's Bander Hand Required: No Accompanied by: Unknown Allergies seafood Allergy (Severe, Verified 11/28/24 13:57) Anaphylaxis pineapple Allergy (Verified 11/28/24 13:57) redness and itching HPI Comments Details: Shama is a pleasant 44 year-old female patient of Dr. Hayes was accompanied by her mom at today's office visit. She has a past medical history of chronic knee pain, dysphagia, constipation, GERD, MS, neurogenic bladder, and osteoarthritis. She presents to the office today for follow-up of her neurogenic bladder due to her longstanding history of MS. In discussion with the patient today she reports to be doing and feeling well. She denies having had any bothersome urinary issues or concerns since her last office visit here. She is enquiring refill on her bethanechol. We did discussed the importance of following up as planned as patient was last seen over 2 years ago. In office urinalysis results reviewed with the patient today. PVR 0 mL. Previously patient was noted to have 3+ microscopic hematuria and a urine cytology during last office visit noted negative for high-grade urethral carcinoma. In office urinalysis results today were reviewed 1+ microscopic hematuria. We did discussed potential causes of microscopic hematuria as well as further workup in risks and benefits of these interventions. She would like to continue with surveillance monitoring at this time. She denies any previous history of workplace chemical exposure and or smoking history. She denies incontinence, hematuria, dysuria, foul smelling urine, changes to urinary stream, flank pain, fever, and or chills. Urine cytology: 10/18 Negative for high-grade urothelial carcinoma. [facility] Medical History Chronic knee pain Dysphagia Constipation Colon cancer screening GERD (gastroesophageal reflux disease) Multiple sclerosis Neurogenic bladder Incomplete emptying of bladder Primary osteoarthritis of right knee Primary osteoarthritis of left knee Thrombosed external hemorrhoid Surgical History History of surgery Family History Mother Arthritis Social History Alcohol intake: current Alcohol intake frequency: holidays/special occasions only Current occupational status: disabled Current occupation: rt handed Review of Systems Const All systems reviewed & are unremarkable except as noted in HPI and below Physical Exam Const General: cooperative, healthy appearing, comfortable, no acute distress, well developed, alert and awake Orientation/consciousness: patient oriented x3 Limitations: ambulation with walker HEENT Head: Yes normal to inspection, Yes normocephalic and Yes atraumatic Ears: hearing grossly normal bilaterally Eyes General: appearance normal, both eyes and all related structures Neck Neck: Yes normal visual inspection and Yes trachea midline Chest Chest palpation & inspection: normal inspection of the chest Resp Effort & Inspection: normal respiratory effort and able to speak in complete sentences Cardio Rate: regular rate GI Inspection: Yes normal to inspection General: Yes no CVA tenderness Back/Spine/Pelvis Back: no CVA tenderness Skin General skin exam: no rashes or lesions noted Neuro General: patient oriented x3 Extrem General: Yes normal to inspection Psych Appearance: grossly normal and well kempt Mental Status: mental status grossly normal Speech and movement: Normal speech and movement present and Clear speech present Affect: normal affect Attitude: cooperative Thought process: Normal thought process present Thought content: Normal thought content present Insight: Good insight present (Psych) Judgement: Good judgement present (Psych) Office Procedures Post Void Residual Post Residual Void Post Void Residual (PVR): 0 52949-Rkbn Void Residual by ultrasound Results AMB Urinalysis, Automated UA Leukoctes 70 Isaac/uL Last Edit by LATRICE Villagomez on 11/28/24 14:04 UA Nitrite Last Edit by LATRICE Villagomez on 11/28/24 14:04 UA Urobilinogen 0.2 mg/dL Last Edit by LATRICE Villagomez on 11/28/24 14:0 4 UA Protein 15 mg/dL Last Edit by Anaid IsraelantonietaLATRICE on 11/28/24 14:04 UA pH 6.0 Last Edit by Ambroseherbert Israelantonieta [facility] on 11/28/24 14:04 UA Blood 10 Marek/uL Last Edit by Anaid Linydantonieta [facility] on 11/28/24 14:04 UA Specific [place] 1.015 Last Edit by Anaid Lindyantonieta [facility] on 11/28/24 14: 04 UA Ketone Last Edit by Ambroseherbert Israelantonieta [facility] on 11/28/24 14:04 UA Bilirubin 0 mg/dL Last Edit by Ambroseherbert Israelantonieta [facility] on 11/28/24 14:04 UA Glucose 0 mg/dL Last Edit by Ambroseherbert Mills [facility] on 11/28/24 14:04 Assessment & Plan Assessment & Plan (1) Microscopic hematuria: Code(s): R31.29 - Other microscopic hematuria Category: Medical (2) Neurogenic urinary bladder disorder: Code(s): N31.9 - Neuromuscular dysfunction of bladder, unspecified Category: Medical Plan In office urinalysis results reviewed with the patient today; as noted above; will send for urine cytology. PVR 0 mL. Continue bethanechol as discussed and prescribed. She currently denies any bothersome urinary issues or concerns. She reports be happy with current voiding parameters. We did discussed potential causes of microscopic hematuria as well as further workup in risks and benefits of these interventions. Will continue with surveillance monitoring at this time. Follow-up in 1 year with PVR; or sooner with any issues, concerns, and or questions. Orders: Orders AMB Urinalysis Automated Today Z13.9 - Encounter for screening, unspecified AMB Post Void Residual by ultrasound Today N31.9 - Neuromuscular dysfunction of bladder, unspecified Urine Cytology Today R31.29 - Other microscopic hematuria Patient Instructions: The patient had an opportunity to ask questions regarding the treatment plan. All questions were answered. Physical exam, labs, and imaging were discussed and reviewed in detail. As well as risks, benefits, and discussion of treatment choices. No major barriers to understanding were identified. The patient expressed understanding and agreement with the above treatment plan. The patient was made aware they should contact our office by phone for worsening of their current condition, the appearance of new symptoms, or with any questions or concerns. Compliance is encouraged with any medications and follow up testing that is ordered. It is a privilege to be allowed the opportunity to participate in? your urological care.? Again, if you have any questions or concerns If you have any questions or concerns please do not hesitate to contact me. The office is [phone]. This note is constructed using voice recognition software. While every effort has been made to ensure accuracy corrugator supervisor errors may have been included. Yours sincerely, LAKISHA Akers Coding Level of Care Code Est Pt Level 3 (41112) Complex EM visit Add On G2211 Diagnoses Microscopic hematuria R31.29 Neurogenic urinary bladder disorder N31.9 CPT Codes Post Residual Void - PVR CPT Code: 44427-Gqyl Void Residual by ultrasound ([id number])
== END 2024-11-28 14:10 | disposition home or self-care (01) ==
LOC: HO.HUSH 13:35
PROVIDERS: PCP Internal Medicine; Visit Provider Nurse Practitioner Family
DX: R31.29 Other microscopic hematuria (principal); N31.9 Neuromuscular dysfunction of bladder, unspecified; Z13.9 Encounter for screening, unspecified
CPT/HCPCS: 99213

== ENCOUNTER 2024-12-19 06:16 | Outpatient (REF) | payer MEDICAID, SELFPAY | END 2024-12-19 06:17 | disposition home or self-care (01) | LOC: CF 06:16 | PROVIDERS: Visit Provider Internal Medicine | DX: M17.12 Unilateral primary osteoarthritis, left knee (principal); G89.29 Other chronic pain; M25.562 Pain in left knee | CPT/HCPCS: 64555; C1778; J2003 ==

== ENCOUNTER 2024-12-19 09:09 | Outpatient (AMB) | payer MEDICAID, SELFPAY ==
--- NOTE | 2024-12-19 09:10 | A.OFFVIS_ITS ---
Vital Signs 12/19/24 09:18 12/19/24 10:09 Height 5 ft 4 in 5 ft 4 in Weight 191 lb 191 lb BMI 32.8 32.8 BP 102/73 98/60 Blood Pressure Location Lt radial Rt radial Position Sitting Supine Respiration 16 16 Pulse 81 69 Pulse Source Pulse Oximeter Pulse Oximeter Pulse Oximetry (%) 99 100 Oxygen Delivery Method Room Air Room Air Intake Visit Reasons: Left saphenous Sprint/ ativan Allergies seafood Allergy (Severe, Verified 11/28/24 13:57) Anaphylaxis pineapple Allergy (Verified 11/28/24 13:57) redness and itching HPI HPI Left saphenous Sprint/ ativan: Details: Patient presents for scheduled procedure. Denies any recent cough, cold, in fection, fever or other significant changes in medical history since last office visit. [facility] Medical History Chronic knee pain Dysphagia Constipation Colon cancer screening GERD (gastroesophageal reflux disease) Multiple sclerosis Neurogenic bladder Incomplete emptying of bladder Primary osteoarthritis of right knee Primary osteoarthritis of left knee Thrombosed external hemorrhoid Surgical History History of surgery Family History Mother Arthritis Social History Alcohol intake: current Alcohol intake frequency: holidays/special occasions only Current occupational status: disabled Current occupation: rt handed Physical Exam Vital Signs: Last Vital Signs Pulse 69 12/19/24 10:09 Resp 16 12/19/24 10:09 BP 98/60 12/19/24 10:09 Pulse Ox 100 12/19/24 10:09 Oxygen Delivery Method Room Air 12/19/24 10:09 BMI result Body Mass Index 32.8 Office Procedures Details: Peripheral Nerve Stimulation Temporary Lead Placement, Ultrasound-Guided, Saphenous Nerve, Left ? After the risks, benefits and alternatives were discussed with the patient and informed consent was obtained, patient was placed in the supine position and padded to foster comfort. Appropriate skin and bony landmarks were identified, and pertinent vascular structures were located. The skin overlying the needle entry site was prepped and draped in sterile fashion. Ultrasound was used to identify the femoral artery, the femoral vein and the saphenous nerve. After identifying and marking the intended target along the course of the saphenous nerve, the skin around the planned entry point and the subcutaneous tissues were injected with local anesthetic. An introducer needle and stimulating probe were assembled, inserted and advanced along the intended course of the saphenous nerve, taking care to maintain the proper depth of insertion as the introducer was advanced under ultrasound guidance. The introducer needle was delivered to a location in proximity to the nerve taking care not to puncture the femoral artery or the vein. Multiple stimulation parameters were used to deliver stimulation to the saphenous nerve in concert with stimulating at multiple positions around the nerve. Nerve target acquisition was confirmed noting generation of sensory and mild motor effects (paresthesia, muscle tension, etc) in the medial knee, leg and ankle; corresponding to the distribution of the saphenous nerve. Various electrical parameter combinations were tested, and the lead location was adjusted (physically relocated under ultrasound guidance) until the patient indicated medial knee paresthesia and tension overlapping the distribution of the patient?s typical region of pain. The stimulating probe was removed from the introducer and a percutaneous lead was guided through the needle and delivered to a location in similar proximity to the nerve. Final location was verified with electrical stimulation and documented. The introducer needle was removed, and the exposed end of the percutaneous lead was attached to an external stimulator unit. Various electrical parameter combinations were again tested until the patient indicated paresthesia and muscle tension overlapping the distribution of the patient?s typical region of pain. After confirming that lead impedance was in the normal range, the external unit was detached, the needle was removed, and the lead was anchored at the skin. The lead was threaded into the connector block and electrical continuity and desired patient response was confirmed. The connector block was attached to the external stimulator unit. The site was covered with a sterile occlusive dressing. A final ultrasound image was taken to document final placement. The patient was observed for stability of vital signs and comfort. Sprint PNS Device: Sprint PNS Device [id number] Percutaneous Peripheral Neuroelectrode Procedure: 86694 - Percutaneous Peripheral Neuroelectrode Procedure code (CPT) selection complete Assessment & Plan Assessment & Plan (1) Primary osteoarthritis of left knee: Code(s): M17.12 - Unilateral primary osteoarthritis, left knee Category: Medical (2) Chronic knee pain: Code(s): M25.569 - Pain in unspecified knee; G89.29 - Other chronic pain Category: Medical Plan Patient is status post temporary left saphenous nerve stimulator placement. Patient tolerated procedure well and was discharged home in stable condition with discharge instructions. All questions were answered. We will follow-up via telephone or in clinic to assess response to therapy. A follow-up appointment was made during today's visit. Orders: Orders US guide needle placement Today Jaye Molina APRN, MCKAYLA M17.12 - Unilateral primary osteoarthritis, left knee AMB Sprint PNS Today Damir Reid MD G89.29 - Other chronic pain, M17.12 - Unilateral primary osteoarthritis, left knee, M25.569 - Pain in unspecified knee AMB Sprint PNS Today Jaye Molina APRN, MCKAYLA M17.12 - Unilateral primary osteoarthritis, left knee Medications: New lorazepam (Ativan) Take 30 minutes prior to arrival to procedure 1 mg PO ONCE 1 tab 0RF anxiety Jaye Molina APRN, MCKAYLA lidocaine HCl 5 mL subcut ONCE 5 mL 0RF Jaye Molina APRN, MCKAYLA M17.12 - Unilateral primary osteoarthritis, left knee Coding Level of Care Code Procedure Only Diagnoses Primary osteoarthritis of left knee M17.12 Chronic knee pain M25.569; G89.29 CPT Codes Sprint PNS - Sprint PNS Device: Sprint PNS Device ([id number]) Sprint PNS - SPRINT: 01185 - Percutaneous Peripheral Neuroelectrode ([id number]) Implantable Device Implantable Device Implantable Devices Qty Director Of Analytics Implant Date Expiration Date Analgesic PENS system 1 [facility] 12/19/24
[2024-12-19 09:18] VITALS: BP 102/73; PULSE 81; RESP 16; O2SAT 99; BMI 32.8
[2024-12-19 10:09] VITALS: BP 98/60; PULSE 69; RESP 16; O2SAT 100; BMI 32.8
== END 2024-12-19 10:25 | disposition home or self-care (01) ==
LOC: HO.PMCPRC 09:09
PROVIDERS: PCP Internal Medicine; Visit Provider Internal Medicine
DX: M17.12 Unilateral primary osteoarthritis, left knee (principal); M25.569 Pain in unspecified knee; G89.29 Other chronic pain
CPT/HCPCS: 64555

== ENCOUNTER 2024-12-25 10:45 | Outpatient (AMB) | payer MEDICAID, SELFPAY ==
[2024-12-25 11:15] VITALS: BP 108/66; PULSE 82; O2SAT 98; BMI 32.6
--- NOTE | 2024-12-25 11:15 | A.OFFVIS_ITS ---
Vital Signs 12/25/24 11:15 Height 5 ft 4 in Weight 190 lb BMI 32.6 BP 108/66 Blood Pressure Location Lt brachial Position Sitting Pulse 82 Pulse Source Pulse Oximeter Pulse Oximetry (%) 98 Oxygen Delivery Method Room Air Intake Visit Reasons: s/p left saphenous Sprint Latent Fingerprint Examiner Required: No Allergies seafood Allergy (Severe, Verified 12/25/24 11:16) Anaphylaxis pineapple Allergy (Verified 12/25/24 11:16) redness and itching Medication List - Last Reconciled 12/25/24 by Willa Cota LPN albuterol sulfate 90 mcg/actuation (ProAir HFA) 0 mcg inhalation bethanechol chloride 50 mg PO BID 90 days bisacodyl 5 mg PO ONCE 1 day diclofenac sodium 1% 4 grams topical QID 30 days dimethyl fumarate (Tecfidera) 240 mg PO BID fluticasone propionate 110 mcg/actuation (Flovent HFA) 0 mcg inhalation ibuprofen 600 mg PO TID lorazepam (Ativan) 1 mg PO ONCE montelukast 10 mg PO DAILY omeprazole 20 mg PO DAILY polyethylene glycol 3350 (Miralax) 17 grams PO DAILY 30 days polyethylene glycol 3350 (Miralax) 238 grams PO ONCE sumatriptan succinate 50 mg orally once a day as needed PRN; do not exceed 4 doses per 24 hrs 30 days HPI HPI s/p left saphenous Sprint: Details: History of Present Illness The patient is a 44-year-old female presenting with knee pain. The knee pain has been significantly reduced by approximately 80% following the current therapy. She reports satisfaction with the therapy and has not experienced any issues with dressing changes, which are performed once or twice a week as needed. The bleed insertion site is noted to be clean, dry, and intact, with plans for follow-up in seven weeks for bleed removal. Pain Description - Knee pain reduced by 80% with current therapy Physical Exam - Lead insertion site: Clean, dry, and intact Pain Management - Analgesia: Knee pain reduced by 80% with current therapy - Activities of Daily Living: No issues with dressing changes, performed once or twice a week as needed [facility] Medical History Chronic knee pain Dysphagia Constipation Colon cancer screening GERD (gastroesophageal reflux disease) Multiple sclerosis Neurogenic bladder Incomplete emptying of bladder Primary osteoarthritis of right knee Primary osteoarthritis of left knee Thrombosed external hemorrhoid Surgical History History of surgery Family History Mother Arthritis Social History Alcohol intake: current Alcohol intake frequency: holidays/special occasions only Current occupational status: disabled Current occupation: rt handed Physical Exam Vital Signs: Last Vital Signs Pulse 82 12/25/24 11:15 BP 108/66 12/25/24 11:15 Pulse Ox 98 12/25/24 11:15 Oxygen Delivery Method Room Air 12/25/24 11:15 BMI result Body Mass Index 32.6 Assessment & Plan Assessment & Plan (1) Chronic knee pain: Code(s): M25.569 - Pain in unspecified knee; G89.29 - Other chronic pain Category: Medical Plan Plan - Continue current therapy as it has reduced knee pain by 80% - Schedule follow-up in seven weeks for bleed removal Patient was informed and verbally consented to the use of an ambient scribe for clinic note documentation during this visit. Discussion Notes I discussed with the patient the effectiveness of the current therapy, which has reduced her knee pain by 80%. We also reviewed the dressing change procedure, which she is managing well, and planned a follow-up in seven weeks for bleed removal. Patient Instructions - Continue with the current therapy as it is effective - Change dressings once or twice a week as needed - Return for follow-up in seven weeks for lead removal Coding Level of Care Code Est Pt Level 3 (67911) Diagnoses Chronic knee pain M25.569; G89.29
== END 2024-12-25 11:29 | disposition home or self-care (01) ==
LOC: HO.PMC 10:45
PROVIDERS: PCP Internal Medicine; Visit Provider Internal Medicine
DX: M25.569 Pain in unspecified knee (principal); G89.29 Other chronic pain
CPT/HCPCS: 99024

== ENCOUNTER → 2024-12-25 10:45 | Outpatient (BNVA) | payer MEDICAID, SELFPAY | PROVIDERS: PCP Internal Medicine; Visit Provider Internal Medicine | DX: M25.562 Pain in left knee (principal); M25.561 Pain in right knee; G89.29 Other chronic pain | CPT/HCPCS: 99212 ==

== ENCOUNTER 2025-01-16 06:05 | Outpatient (REF) | payer MEDICAID, SELFPAY | END 2025-01-16 06:06 | disposition home or self-care (01) | LOC: CF 06:05 | PROVIDERS: Visit Provider Internal Medicine | DX: M17.0 Bilateral primary osteoarthritis of knee (principal) | CPT/HCPCS: 64555; C1778; J2003 ==

== ENCOUNTER 2025-01-16 09:12 | Outpatient (AMB) | payer MEDICAID, SELFPAY ==
[2025-01-16 09:21] VITALS: BP 108/42; PULSE 76; RESP 16; O2SAT 100; BMI 32.6
--- NOTE | 2025-01-16 09:21 | MHC.OFFVIS ---
Vital Signs 01/16/25 09:21 01/16/25 10:22 Height 5 ft 4 in Weight 190 lb BMI 32.6 BP 108/42 L 103/65 Blood Pressure Location Lt brachial Rt brachial Position Sitting Sitting Respiration 16 16 Pulse 76 76 Pulse Source Pulse Oximeter Pulse Oximeter Pulse Oximetry (%) 100 100 Oxygen Delivery Method Room Air Room Air Intake Visit Reasons: Right saphenous Sprint/ ativan Allergies seafood Allergy (Severe, Verified 12/25/24 11:16) Anaphylaxis pineapple Allergy (Verified 12/25/24 11:16) redness and itching HPI HPI Right saphenous Sprint/ ativan: Details: Patient presents for scheduled procedure. Denies any recent cough, cold, infection, fever or other significant changes in medical history since last office visit. [facility] Medical History (Updated 01/03/25 @ 11:51 by Ro Lawrence MA) UTI (urinary tract infection) Arthritis Trigeminal neuralgia Nystagmus Migraine Spastic bladder Ataxia Fatigue Multiple sclerosis Chronic knee pain Dysphagia Constipation Colon cancer screening GERD (gastroesophageal reflux disease) Multiple sclerosis Neurogenic bladder Incomplete emptying of bladder Primary osteoarthritis of right knee Primary osteoarthritis of left knee Thrombosed external hemorrhoid Surgical History History of surgery Family History Mother Arthritis Social History Alcohol intake: current Alcohol intake frequency: holidays/special occasions only Current occupational status: disabled Current occupation: rt handed Physical Exam Vital Signs: Last Vital Signs Pulse 76 01/16/25 10:22 Resp 16 01/16/25 10:22 BP 103/65 01/16/25 10:22 Pulse Ox 100 01/16/25 10:22 Oxygen Delivery Method Room Air 01/16/25 10:22 BMI result Body Mass Index 32.6 Office Procedures Details: Peripheral Nerve Stimulation Temporary Lead Placement, Ultrasound-Guided, Saphenous Nerve, Right ? After the risks, benefits and alternatives were discussed with the patient and informed consentwas obtained, patient was placed in the supine position and padded to foster comfort. Appropriate skin and bony landmarks were identified, and pertinent vascular structures were located. The skin overlying the needle entry site was prepped and draped in sterile fashion. Ultrasound was used to identify the femoral artery, the femoral vein and the saphenous nerve. After identifying and marking the intended target along the course of the saphenous nerve, the skin around the planned entry point and the subcutaneous tissues were injected with local anesthetic. An introducer needle and stimulating probe were assembled, inserted and advanced along the intended course of the saphenous nerve, taking care to maintain the proper depth of insertion as the introducer was advanced under ultrasound guidance. The introducer needle was delivered to a location in proximity to the nerve taking care not to puncture the femoral artery or the vein. Multiple stimulation parameters were used to deliver stimulation to the saphenous nerve in concert with stimulating at multiple positions around the nerve. Nerve target acquisition was confirmed noting generation of sensory and mild motor effects (paresthesia, muscle tension, etc) in the medial knee, leg and ankle; corresponding to the distribution of the saphenous nerve. Various electrical parameter combinations were tested, and the lead location was adjusted (physically relocated under ultrasound guidance) until the patient indicated medial knee paresthesia and tension overlapping the distribution of the patient?s typical region of pain. The stimulating probe was removed from the introducer and a percutaneous lead was guided through the needle and delivered to a location in similar proximity to the nerve. Final location was verified with electrical stimulation and documented. The introducer needle was removed, and the exposed end of the percutaneous lead was attached to an external stimulator unit. Various electrical parameter combinations were again tested until the patient indicated paresthesia and muscle tension overlapping the distribution of the patient?s typical region of pain. After confirming that lead impedance was in the normal range, the external unit was detached, the needle was removed, and the lead was anchored at the skin. The lead was threaded into the connector block and electrical continuity and desired patient response was confirmed. The connector block was attached to the external stimulator unit. The site was covered with a sterile occlusive dressing. A final ultrasound image was taken to document final placement. The patient was observed for stability of vital signs and comfort. Sprint PNS Device: Sprint PNS Device [id number] Percutaneous Peripheral Neuroelectrode Procedure: 10473 - Percutaneous Peripheral Neuroelectrode Procedure code (CPT) selection complete Office Meds lidocaine HCl 10 mg/mL (1 %) injection solution Performing Provider: Damir Reid MD Performing Location: [facility] Administered by: Willa Cota LPN on 01/16/25 10:03 Dose Route Admin Location Dispensed Lot Number Expiration Date NDC Electoral Officer 5 mL subcut 5 mL Total Dispensed Waste 5 mL 0 % Assessment & Plan Assessment & Plan (1) Osteoarthritis of knees, bilateral: Code(s): M17.0 - Bilateral primary osteoarthritis of knee Category: Medical Qualifiers: Osteoarthritis type: primary Qualified Code(s): M17.0 - Bilateral primary osteoarthritis of knee (2) Chronic knee pain: Code(s): M25.569 - Pain in unspecified knee; G89.29 - Other chronic pain Category: Medical Plan Patient is status post temporary right saphenous nerve stimulator placement. Patient tolerated procedure well and was discharged home in stable condition with discharge instructions. All questions were answered. We will follow-up via telephone or in clinic to assess response to therapy. A follow-up appointment was made during today's visit. Orders: Orders US guide needle placement Today Jaye Molina APRN, [employer] FRAME CARPENTER M17.11 - Unilateral primary osteoarthritis, right knee AMB Sprint PNS Today Damir Reid MD G89.29 - Other chronic pain, M17.0 - Bilateral primary osteoarthritis of knee, M25.569 - Pain in unspecified knee Medications: New lorazepam (Ativan) Take 30 minutes prior to arrival to procedure 1 mg PO ONCE 1 tab 0RF anxiety Jaye Molina APRN, [employer]AME [employer]PENTER Coding Level of Care Code Procedure Only Diagnoses Primary osteoarthritis of both knees M17.0 Osteoarthritis type: primary Chronic knee pain M25.569; G89.29 CPT Codes Sprint PNS - Sprint PNS Device: Sprint PNS Device ([id number]) Sprint PNS - SPRINT: 34410 - Percutaneous Peripheral Neuroelectrode ([id number]) Implantable Device Implantable Device Implantable Devices Qty Electoral Officer Implant Date Expiration Date Analgesic PENS system 1 [employer] 12/19/24 Analgesic PENS system 1 [employer] 01/16/25 08/20/26
[2025-01-16 10:22] VITALS: BP 103/65; PULSE 76; RESP 16; O2SAT 100
== END 2025-01-16 10:37 | disposition home or self-care (01) ==
LOC: HO.PMCPRC 09:12
PROVIDERS: PCP Internal Medicine; Visit Provider Internal Medicine
DX: M17.0 Bilateral primary osteoarthritis of knee (principal); M25.569 Pain in unspecified knee; G89.29 Other chronic pain
CPT/HCPCS: 64555

== ENCOUNTER 2025-01-22 09:12 | Outpatient (AMB) | payer MEDICAID, SELFPAY ==
[2025-01-22 09:35] VITALS: BP 104/70; PULSE 73; RESP 16; O2SAT 100; BMI 32.6
--- NOTE | 2025-01-22 09:35 | MHC.OFFVIS ---
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: No Accompanied by: Spouse Allergies seafood Allergy (Severe, Verified 01/22/25 09:38) Anaphylaxis pineapple Allergy (Verified 01/22/25 09:38) redness and itching Medication List - Last Reconciled 01/22/25 by Willa Cota LPN albuterol sulfate 90 mcg/actuation (ProAir HFA) 0 mcg inhalation bethanechol chloride 50 mg PO BID 90 days bisacodyl 5 mg PO ONCE 1 day diclofenac sodium 1% 4 grams topical QID 30 days dimethyl fumarate (Tecfidera) 240 mg PO BID fluticasone propionate 110 mcg/actuation (Flovent HFA) 0 mcg inhalation gabapentin 100 mg PO BID ibuprofen 600 mg PO TID montelukast 10 mg PO DAILY omeprazole 20 mg PO DAILY polyethylene glycol 3350 (Miralax) 17 grams PO DAILY 30 days sumatriptan succinate 50 mg PO DAILY PRN HPI HPI s/p right Sprint: Details: History of Present Illness The patient is a 44-year-old female presenting with follow-up after the replacement of a temporary nerve stimulator. Both stimulators are functioning well, but one leg remains more crooked, and orthopedic intervention has been deferred due to her age. She inquired about gel injections, which were advised to be delayed until after the removal of the nerve stimulators to ensure accurate assessment of their effectiveness. The bones are misaligned, and the patient is advised to wait a couple of months post-stimulator removal before considering gel injections. Physical Exam - Musculoskeletal: Lead insertion site is clean dry and intact [facility] Medical History (Updated 01/03/25 @ 11:51 by Ro Lawrence MA) UTI (urinary tract infection) Arthritis Trigeminal neuralgia Nystagmus Migraine Spastic bladder Ataxia Fatigue Multiple sclerosis Chronic knee pain Dysphagia Constipation Colon cancer screening GERD (gastroesophageal reflux disease) Multiple sclerosis Neurogenic bladder Incomplete emptying of bladder Primary osteoarthritis of right knee Primary osteoarthritis of left knee Thrombosed external hemorrhoid Surgical History History of surgery Family History Mother Arthritis Social History Alcohol intake: current Alcohol intake frequency: holidays/special occasions only Current occupational status: disabled Current occupation: rt handed Physical Exam Vital Signs: Last Vital Signs Pulse 73 01/22/25 09:35 Resp 16 01/22/25 09:35 BP 104/70 01/22/25 09:35 Pulse Ox 100 01/22/25 09:35 Oxygen Delivery Method Room Air 01/22/25 09:35 BMI result Body Mass Index 32.6 Assessment & Plan Assessment & Plan (1) Chronic knee pain: Code(s): M25.569 - Pain in unspecified knee; G89.29 - Other chronic pain Category: Medical Plan Plan Patient was informed and verbally consented to the use of an ambient scribe for clinic note documentation during this visit. 1. Crooked Leg - Continue with current management and reassess after nerve stimulator removal. 2. Misaligned Bones - Postpone gel injections until after nerve stimulator removal to avoid confounding treatment assessment. Discussion Notes I discussed with the patient the importance of waiting until after the nerve stimulator removal before proceeding with gel injections to ensure we accurately assess the effectiveness of the current treatment. Patient Instructions - Continue with current management and follow up for nerve stimulator removal as scheduled. - Wait for a couple of months after nerve stimulator removal before considering gel injections. Coding Level of Care Code Est Pt Level 3 (13029) Diagnoses Chronic knee pain M25.569; G89.29
== END 2025-01-22 11:39 | disposition home or self-care (01) ==
LOC: HO.PMC 09:12
PROVIDERS: PCP Internal Medicine; Visit Provider Internal Medicine
DX: M25.569 Pain in unspecified knee (principal); G89.29 Other chronic pain
CPT/HCPCS: 99024

== ENCOUNTER → 2025-01-22 09:12 | Outpatient (BNVA) | payer MEDICAID, SELFPAY | PROVIDERS: PCP Internal Medicine; Visit Provider Internal Medicine | DX: M25.561 Pain in right knee (principal); G89.29 Other chronic pain | CPT/HCPCS: 99212 ==

== ENCOUNTER 2025-02-12 09:05 | Outpatient (AMB) | payer MEDICAID, SELFPAY ==
--- NOTE | 2025-02-12 09:08 | A.OFFVIS_ITS ---
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 Required: No Accompanied by: Significant Other Allergies seafood Allergy (Severe, Verified 02/12/25 09:11) Anaphylaxis pineapple Allergy (Verified 02/12/25 09:11) redness and itching Medication List - Last Reconciled 02/12/25 by Willa Cota LPN albuterol sulfate 90 mcg/actuation (ProAir HFA) 0 mcg inhalation bethanechol chloride 50 mg PO BID 90 days bisacodyl 5 mg PO ONCE 1 day diclofenac sodium 1% 4 grams topical QID 30 days dimethyl fumarate (Tecfidera) 240 mg PO BID fluticasone propionate 110 mcg/actuation (Flovent HFA) 0 mcg inhalation gabapentin 100 mg PO BID ibuprofen 600 mg PO TID montelukast 10 mg PO DAILY omeprazole 20 mg PO DAILY polyethylene glycol 3350 (Miralax) 17 grams PO DAILY 30 days sumatriptan succinate 50 mg PO DAILY PRN HPI HPI Left Sprint removal: Details: History of Present Illness The patient is a 44-year-old female presenting for follow-up for removal of her temporary nerve stimulator device from her left saphenous nerve. She reports greatly improved left knee pain, which has been alleviated by approximately 80% following the placement of the nerve stimulator. The pain was initially described as a sensation of bone scratching, and although improved, it is not completely resolved. The patient is scheduled to return to the clinic in two weeks for the removal of the right-sided lead, indicating ongoing management of her condition. Pain Description - Onset: Chronic left knee pain - Quality: Described as a sensation of bone scratching - Relief: Approximately 80% improvement with nerve stimulator Physical Exam - Appears afebrile. - Alert and oriented. - Mood and affect appropriate. - Follows and participates in conversation appropriately. - Respiratory effort is unlabored. - Lead removed with tip intact on the left side. Pain Management - Analgesia: Patient reports 80% pain relief with the nerve stimulator. - Activities of Daily Living: Pain is not completely resolved, indicating some ongoing impact on daily activities. [facility] Medical History (Updated 01/03/25 @ 11:51 by Ro Lawrence MA) UTI (urinary tract infection) Arthritis Trigeminal neuralgia Nystagmus Migraine Spastic bladder Ataxia Fatigue Multiple sclerosis Chronic knee pain Dysphagia Constipation Colon cancer screening GERD (gastroesophageal reflux disease) Multiple sclerosis Neurogenic bladder Incomplete emptying of bladder Primary osteoarthritis of right knee Primary osteoarthritis of left knee Thrombosed external hemorrhoid Surgical History History of surgery Family History Mother Arthritis Social History Alcohol intake: current Alcohol intake frequency: holidays/special occasions only Current occupational status: disabled Current occupation: rt handed Physical Exam Vital Signs: Last Vital Signs Pulse 86 02/12/25 09:09 Resp 16 02/12/25 09:09 BP 102/66 02/12/25 09:09 Pulse Ox 99 02/12/25 09:09 Oxygen Delivery Method Room Air 02/12/25 09:09 BMI result Body Mass Index 33.0 Assessment & Plan Assessment & Plan (1) Osteoarthritis of knees, bilateral: Code(s): M17.0 - Bilateral primary osteoarthritis of knee Category: Medical Qualifiers: Osteoarthritis type: primary Qualified Code(s): M17.0 - Bilateral primary osteoarthritis of knee (2) Chronic knee pain: Code(s): M25.569 - Pain in unspecified knee; G89.29 - Other chronic pain Category: Medical Plan Plan Patient was informed and verbally consented to the use of an ambient scribe for clinic note documentation during this visit. 1. Left Knee Pain - Removed temporary nerve stimulator device from the left knee. - Scheduled follow-up in two weeks for removal of the right-sided lead. Discussion Notes During the visit, we discussed the patient's progress with the temporary nerve stimulator, noting an 80% improvement in her left knee pain. We also talked about the plan to remove the device and the upcoming follow-up for the right- sided lead removal. Additionally, we are exploring options for patients on [employer] regarding dudley pay for services, and will update the patient if this becomes viable. Patient Instructions - Return to the clinic in two weeks for removal of the right-sided lead. - Monitor pain levels and report any significant changes. Coding Level of Care Code Est Pt Level 3 (57031) Diagnoses Primary osteoarthritis of both knees M17.0 Osteoarthritis type: primary Chronic knee pain M25.569; G89.29
[2025-02-12 09:09] VITALS: BP 102/66; PULSE 86; RESP 16; O2SAT 99; BMI 33.0
== END 2025-02-12 09:30 | disposition home or self-care (01) ==
PROVIDERS: PCP Internal Medicine; Visit Provider Internal Medicine
DX: M17.0 Bilateral primary osteoarthritis of knee (principal); M25.569 Pain in unspecified knee; G89.29 Other chronic pain
CPT/HCPCS: 99213

== ENCOUNTER → 2025-02-12 09:05 | Outpatient (BNVA) | payer MEDICAID, SELFPAY | PROVIDERS: PCP Internal Medicine; Visit Provider Internal Medicine | DX: M17.0 Bilateral primary osteoarthritis of knee (principal); M25.569 Pain in unspecified knee; G89.29 Other chronic pain | CPT/HCPCS: 99212 ==

== ENCOUNTER 2025-02-25 15:24 | Outpatient (AMB) | payer MEDICAID, SELFPAY ==
--- NOTE | 2025-02-25 15:47 | A.OFFVIS_ITS ---
Intake Visit Reasons: 01/08/25 NO SHOW Allergies seafood Allergy (Severe, Verified 02/12/25 09:11) Anaphylaxis pineapple Allergy (Verified 02/12/25 09:11) redness and itching HPI Comments Details: 44 y/o woman with severe multiple sclerosis. Her initial symptoms were left eye blindness with pain at age 12. She was sent to [facility] and after multiple tests was diagnosed with MS. She was treated with solumedrol and then Betaseron was started. After a few years, due to side effects, it was changed to Copaxone. For some reason, it was changed to Avonex. In 2007, [place] [facility] [place] cervical and thoracic cord MS type lesions. MRI brain over the years, has revealed numerous MS type lesions. I initially saw her around 2010 when she was still taking Copaxone. At that point, Copaxone was stopped and she was probably swithced to Rebif, which was switched to Tysabari in 2010. It continued until about 2019 when it was stopped due to high liver enzymes. It kept her disease relatively stable. She was switched to Tecfidera that she has been taking. She is presenting with trigeminal neuralgia and knee pain. She has had right- sided facial pain previously managed with carbamazepine, though currently controlled without the need for this medication. Her knee pain involves both knees and is currently managed using a brace device named 'Sprint', with plans to possibly proceed to gel injections due to ongoing discomfort. She also reports stable urinary function and is on a regimen of Dimethyl fumarate (Dacfadera). Previous blood work including CBC and chemistry was normal as of July. [facility] Medical History (Updated 02/25/25 @ 15:53 by Silvia Mann MD) UTI (urinary tract infection) Arthritis Trigeminal neuralgia Nystagmus Migraine Spastic bladder Ataxia Fatigue Multiple sclerosis Chronic knee pain Dysphagia Constipation Colon cancer screening GERD (gastroesophageal reflux disease) Multiple sclerosis Neurogenic bladder Incomplete emptying of bladder Primary osteoarthritis of right knee Primary osteoarthritis of left knee Thrombosed external hemorrhoid Surgical History History of surgery Family History Mother Arthritis Social History (Reviewed 11/28/24 @ 14:02 by Anaid Mills [facility] Alcohol intake: current Alcohol intake frequency: holidays/special occasions only Current occupational status: disabled Current occupation: rt handed Review of Systems Const Details: - Neurological: Reports right-sided facial pain. - Musculoskeletal: Reports bilateral knee pain. - Genitourinary: Denies current bladder issues. Physical Exam Neuro Other: Mental Status: Alert and oriented to person, place, and time. Normal attention. Normal spontaneous speech, fluency, and comprehension. No obvious issues with mood and memory. Affect is appropriate. Cranial Nerves: CN II: Visual fournier full to confrontation, visual acuity intact. CN III, IV, : Pupils equal, round, reactive to light and accommodation. Extraocular movements are normal. CN V: Facial sensation is normal. CN VII: Facial movements symmetrical. CN VIII: Hearing intact to bedside conversation is normal. CN IX, X: Palate elevates symmetrically. CN XI: Shoulder shrug and head turn symmetrical. CN XII: Tongue midline without atrophy or fasciculations. Moderately severe spastic gait and walking with a walker. Extrapyramidal: Full facial expressions and blinking. No rigidity. Movements are appropriate with no tremor or abnormality. Speech: Normal; no dysarthria or tremor. Assessment & Plan Assessment & Plan (1) Multiple sclerosis: Comment: Meds tried: Betaseron, Copaxone, Rebif, Tysabari JCV titre: 2013 neg, 215 onwards +, Feb 2018: 1.53, May 2018: 1.33 XR knees in November 2017: L more than R arthritis Facial Bones CT Jul 2017: mimimal sinus disease MRI brain [place] [facility] [place] Dec [place]: No change from 2017 MRI brain [place] [facility] in September 2016: stable, no change CT brain WO [place] [facility] [place] 2016: mild cerebellar atrophy [place] brain [place] [facility] [place] Dec 2015: no change or new lesion MRI brain [place] [facility] [place] Jan 2015: stable MS lesions, no sig atrophy MRI brain at [facility] [place] in 2006: multiple b/l MS lesions, lesion load 2/5 MRI brain [place] [facility] [place] in 2011: multiple b/l MS lesions, lesion load 2/5. MRI C spine [place] 2007 [place] [facility]: mid brain and upper cervical lesions MRI T spine [place] 2007 [place] [facility]: multiple MS lesions. Code(s): G35 - Multiple sclerosis Category: Medical (2) Trigeminal neuralgia: Code(s): G50.0 - Trigeminal neuralgia Category: Medical (3) Migraine: Code(s): G43.909 - Migraine, unspecified, not intractable, without status migrainosus Category: Medical Qualifiers: Migraine type: migraine (< 15 days per month) without aura Status migrainosus presence: without status migrainosus Intractability: not intractable Qualified Code(s): G43.009 - Migraine without aura, not intractable, without status migrainosus (4) Spastic bladder: Code(s): N32.89 - Other specified disorders of bladder Category: Medical Plan Impressoin: a: Remitting relapsing MS b: Trigeminal neuralgia, right, in remission c: Migraine w/o aura d: Multifactorial gait disorder e: Knee arthritis f: Spastic bladder Rec: a: Dimethyl fumarate 240mg bid b: CBC, LFTs, JCV titer c: Walker d: F/U with urologist and orthopedics e: Sumatriptan 50mg qd prn Orders: Orders JCV Ab w/Indx rflx Inhibition Today G35 - Multiple sclerosis Complete Blood Count Auto Diff Today G35 - Multiple sclerosis Liver Panel Today G35 - Multiple sclerosis Coding Level of Care Code Est Pt Level 4 (65842) Diagnoses Multiple sclerosis G35 Trigeminal neuralgia G50.0 Migraine without aura and without status migrainosus, not intractable G43.009 Migraine type: migraine (< 15 days per month) without aura Status migrainosus presence: without status migrainosus Intractability: not intractable Spastic bladder N32.89
--- OUTSIDE RECORDS SUMMARY | 2025-02-25 16:40 | XMS_ITS | Encounter Summary ---
Author Organization [facility] Address [address] [place] [address] Care Team Providers Care Skiver Blockers Name Role Phone Annetta Hayes MD Primary Care Provider [phone] Encounter Details Date Type Department Care Team (Late st Contact Info) Description 02/13/2025 Lab Requisition [facility] - Main Lab [address] [facility] [place] [address] Annetta Hayes MD [address] [place] [address] [place] [address] Encounter for screening for malignant neoplasm of cervix Social History Tobacco Use Types Packs/Day Years Used Date Smoking Tobacco: Never Assessed Comments Unknown Sex and Gender Information Value Date Recorded Sex Assigned at Not on file Legal Sex Female 5:04 AM EST Gender Identity Not on file Sexual Orientation Not on file documented as of this encounter Plan of Treatment Not on file documented as of this encounter Procedures Procedure Name Priority Date/Time Associated Diagnosis Comments CHLAMYDIA TRACHOMATIS AND NEISSERIA GONORRHOEAE BY TMA, THINPREP Routine 02/11/2025 12:00 AM EDT Encounter for screening for malignant neoplasm of cervix HPV WITH REFLEX GENOTYPE Routine 02/11/2025 12:00 AM EDT Encounter for screening for malignant neoplasm of cervix TRICHOMONAS VAGINALIS PCR Routine 02/11/2025 12:00 AM EDT Encounter for screening for malignant neoplasm of cervix PAP SMEAR Routine 02/11/2025 12:00 AM EDT Encounter for screening for malignant neoplasm of cervix documented in this encounter Results * HPV with reflex genotype (02/11/2025 12:00 AM EDT) HPV Negative Negative LAB MICROBIOLOGY METHOD 02/13/2025 2:47 PM EDT [facility] Brushing/Spatula Cervix uteri structure / Unknown 02/11/2025 02/13/2025 6:22 AM EDT us Annetta Hayes MD LAB MOLECULAR DIAGNOSTICS ORD ERABLES Final Result Performing Organization Address [facility]/ZIP Co de Phone Number [facility] [address] [place] [address], [place] [phone] * Trichomonas vaginalis molecular study (02/11/2025 12:00 AM EDT) Pathologist [facility] Trichomonas vaginalis Negative Negative LAB MICROBIOLOGY METHOD 02/14/2025 1:24 PM EDT [facility] Brushing/Spatula Cervix uteri structure / Unknown 02/11/2025 02/13/2025 6:22 AM EDT us Annetta Hayes MD LAB BLOOD ORDERABLES Final Re sult Performing Organization Address City/[facility]/ZIP Co de Phone Number [facility] [address] [place] [address], [place] [phone] * Chlamydia trachomatis and neisseria gonorrhoeae by tma, thinprep (02/11/2025 12:00 AM EDT) N. gonorrhoeae, RNA Probe Negative Negative LAB MICROBIOLOGY METHOD 02/14/2025 1:15 PM EDT [facility] Chlamydia, RNA Probe Negative Negative LAB MICROBIOLOGY METHOD 02/14/2025 1:15 PM EDT [facility] Brushing/Spatula Cervix uteri structure / Unknown 02/11/2025 02/13/2025 6:22 AM EDT us Annetta Hayes MD LAB CYTOLOGY ORDERABLES Final Result Performing Organization Address City/[facility]/ZIP Co de Phone Number [facility] [address] [place] [address], * Pap smear (02/11/2025 12:00 AM EDT) Interpretation Negative for intraepithelial lesion or malignancy 02/14/2025 1:09 PM EDT [facility] General Categorization Negative 02/14/2025 1:09 PM EDT [facility] LMP 02/14/2025 1:09 PM EDT [facility] Comment:4 wks Specimen Adequacy Satisfactory for evaluation, endocervical/courtney sformation zone component present 02/14/2025 1:09 PM EDT [facility] Pap Methodology Liquid Based Pap Test 02/14/2025 1:09 PM EDT [facility] Disclaimer The Pap test is a screening test which carries an inherent false negative rate. These test results should be correlated with the patient's clinical findings and history. This Pap test was processed using an automated screening system. Technical cytopathology services provided by [facility], at [address] [place] [id number] (CLIA # [id number]/Thien Rizo MD, Vest Presser.) 02/14/2025 1:09 PM EDT [facility] Console Pap Interpretation Reported 02/14/2025 1:09 PM EDT [facility] Brushing/Spatula Cervix uteri structure / Unknown 02/11/2025 02/13/2025 6:22 AM EDT us Annetta Hayes MD LAB CYTOLOGY ORDERABLES Final Result Performing Organization Address City/[facility]/ZIP Co de Phone Number [facility] [address] [place] [address], [place] [phone] documented in this encounter Visit Diagnoses Diagnosis Encounter for screening for malignant neoplasm of cervix documented in this encounter Care Teams Skiver Blockers Relationship Specialty Start Date End Date Annetta Hayes MD [address] [place] [address] [place] [address] PCP - General Internal Medicine 04/18/19 documented as of this encounter
--- OUTSIDE RECORDS SUMMARY | 2025-02-25 16:40 | XMS_ITS | Clinical Summary ---
Author Organization [address] [facility] Address [address] [place] [address] Phone Care Team Providers Care Sales Training Manager Name Role Phone Annetta Hayes MD Primary Care Provider [phone] Encounters Date Type Department Care Team Description 02/13/2025 Lab Requisition [facility] - Main Lab [address] [facility] [place] [address] Annetta Hayes MD Encounter for screening for malignant neoplasm of cervix from Last 3 Months Social History Tobacco Use Types Packs/Day Years Used Date Smoking Tobacco: Never Assessed Comments Unknown Sex and Gender Information Value Date Recorded Sex Assigned at Not on file Legal Sex Female 5:04 AM EST Gender Identity Not on file Sexual Orientation Not on file Plan of Treatment Health Maintenance Due Date Last Done Comments Breast Cancer Screening 1978 DTaP,Tdap,and Td Vaccines (1 - Tdap) 1997 Hepatitis B Vaccines (1 of 3 - 19+ 3-dose series) 1997 Depression Screening 05/29/2024 COVID-19 Vaccine ( - 2023-2 5 season) 2025 Influenza Vaccine (#1) 2025 Colorectal Cancer Screening: Colonoscopy 02/13/2025 HIV Screening 02/13/2025 Hepatitis C Screening 02/13/2025 Social Influencers of Health Screening 02/13/2025 Cervical Cancer Screening: HPV 02/11/2030 02/11/2025 RSV Immunization Adult Patie nts (1 - 1-dose 75+ series) 2053 HIB Vaccines Aged Out No longer eligi ble based on patient's age to complete this topic HPV Vaccines Aged Out No longer eligi ble based on patient's age to complete this topic Hepatitis A Vaccines Aged Out No long er eligible based on patient's age to complete this topic IPV Vaccines Aged Out No longer eligi ble based on patient's age to complete this topic MMR Vaccines Aged Out No longer eligi ble based on patient's age to complete this topic Meningococcal ACWY Vaccine Aged Out N o longer eligible based on patient's age to complete this topic Meningococcal B Vaccine Aged Out No l onger eligible based on patient's age to complete this topic Pneumococcal Vaccine: Pediat rics (0 to 5 Years) and At-Risk Patients (6 to 49 Years) Aged Out No longer eligi ble based on patient's age to complete this topic RSV Immunization Patients Un fanny 20 months Aged Out No longer eligible b ased on patient's age to complete this topic Varicella Vaccines Aged Out No longer eligible based on patient's age to complete this topic Procedures Procedure Name Priority Date/Time Associated Diagnosis [...] for screening for malignant neoplasm of cervix from Last 3 Months Results * Chlamydia trachomatis and neisseria gonorrhoeae by tma, thinprep (02/11/2025 12:00 AM EDT) N. gonorrhoeae, RNA Probe Negative Negative LAB MICROBIOLOGY METHOD 02/14/2025 1:[address] [facility] Chlamydia, RNA Probe Negative Negative LAB MICROBIOLOGY METHOD 02/14/2025 1:[address] [facility] Brushing/Spatula Cervix uteri structure / Unknown 02/11/2025 02/13/2025 6:22 AM EDT us Annetta Hayes MD LAB CYTOLOGY ORDERABLES Final Result Performing Organization Address [facility]/ZIP Co de Phone Number [facility] [address] [place] [address], [place] [phone] * HPV with reflex genotype (02/11/2025 12:00 AM EDT) HPV Negative Negative LAB MICROBIOLOGY METHOD 02/13/2025 2:[address] [facility] Brushing/Spatula Cervix uteri structure / Unknown 02/11/2025 02/13/2025 6:22 AM EDT us Annetta Hayes MD LAB MOLECULAR DIAGNOSTICS ORD ERABLES Final Result Performing Organization Address [facility]/ZIP Co de Phone Number [facility] [address] [place] [address], [place] [phone] * Trichomonas vaginalis molecular study (02/11/2025 12:00 AM EDT) Trichomonas vaginalis Negative Negative LAB MICROBIOLOGY METHOD 02/14/2025 1:[address] [facility] Brushing/Spatula Cervix uteri structure / Unknown 02/11/2025 02/13/2025 6:22 AM EDT us Annetta Hayes MD LAB BLOOD ORDERABLES Final Re sult Performing Organization Address City/[facility]/ZIP Co de Phone Number [facility] [address] [place] [address], [place] [phone] * Pap smear (02/11/2025 12:00 AM EDT) Interpretation Negative for intraepithelial lesion or malignancy 02/14/2025 1:[address] [facility] General Categorization Negative 02/14/2025 1:[address] [facility] LMP 02/14/2025 1:[address] [facility] Comment:4 wks Specimen Adequacy Satisfactory for evaluation, endocervical/courtney sformation zone component present 02/14/2025 1:[address] [facility] Pap Methodology Liquid Based Pap Test 02/14/2025 1:[address] [facility] Disclaimer The Pap test is a screening test which carries an inherent false negative rate. These test results should be correlated with the patient's clinical findings and history. This Pap test was processed using an automated screening system. Technical cytopathology services provided by [facility], at [address] [place] [address] (CLIA # [id number]/Thien Rizo MD, Sales Agent Financial Report Service.) 02/14/2025 1:[address] [facility] Console Pap Interpretation Reported 02/14/2025 1:[address] [facility] Brushing/Spatula Cervix uteri structure / Unknown 02/11/2025 02/13/2025 6:22 AM EDT us Annetta Hayes MD LAB CYTOLOGY ORDERABLES Final Result [facility] [address] [place] [address], from Last 3 Months Insurance MEDICAID - [place] Care Teams Sales Training Manager Relationship Specialty Start Date End Date Annetta Hayes MD [address] [place] [address] [place] [address] PCP - General Internal Medicine 04/18/19
== END 2025-02-25 15:57 | disposition home or self-care (01) ==
LOC: HO.HSM 15:25
PROVIDERS: PCP Internal Medicine; Visit Provider Psychiatry & Neurology Neurology
DX: G35 Multiple sclerosis (principal); G50.0 Trigeminal neuralgia; G43.009 Migraine without aura, not intractable, without status migrainosus; N32.89 Other specified disorders of bladder
CPT/HCPCS: 99214

== ENCOUNTER → 2025-02-25 15:24 | Outpatient (BNVA) | payer MEDICAID, SELFPAY | PROVIDERS: PCP Internal Medicine; Visit Provider Psychiatry & Neurology Neurology | DX: G35 Multiple sclerosis (principal); G43.009 Migraine without aura, not intractable, without status migrainosus; N32.89 Other specified disorders of bladder | CPT/HCPCS: 99212 ==

== ENCOUNTER 2025-03-07 10:00 | Outpatient (REF) | payer MEDICAID, SELFPAY ==
[2025-03-07 11:08] LABS: MANUAL DIFF FLAG NO
[2025-03-07 11:52] LABS: Hematocrit 39.5 % (37.0-47.0); Hemoglobin 13.0 g/dl (12.0-16.0); Imm Gran Abs Auto 0.03 X10*3/uL (0.00-0.03); Imm Gran Pct Auto 0.4 % (0.0-0.4); Lymphocytes Absolute Auto 1.3 X10*3/uL (1.2-4.9); Mean Corpuscular HGB Conc 32.9 g/dl (31.0-35.0); Mean Corpuscular Hemoglobin 30.2 pg (27.0-33.0); Mean Corpuscular Volume 91.6 fL (80.0-98.0); NRBC Abs Auto 0.000 X10*3/uL (0.0-0.012); NRBC Pct Auto 0.0 /100WBC (0.0-0.2); Platelet Count 214 X10*3/uL (160-400); Red Blood Count 4.31 X10*6/uL (4.20-5.50); White Blood Count 7.3 X10*3/uL (4.8-10.8)
[2025-03-07 12:18] LABS: Alanine Aminotransferase 33 U/L (0-31); Albumin Level 4.6 g/dL (3.5-5.0); Alkaline Phosphatase 46 U/L (39-117); Anion Gap 11 (12-20); Aspartate Amino Transferase 20 U/L (5-31); Blood Urea Nitrogen 8 mg/dL (9-16); Calcium 9.6 mg/dL (8.4-10.2); Carbon Dioxide 27 mmol/L (22-29); Chloride 106 mmol/L (96-108); Estimated Glomerular Filt Rate > 60; Potassium 4.1 mmol/L (3.3-5.1); Sodium 140 mmol/L (135-145); Total Protein 7.4 g/dL (6.5-8.0)
[2025-03-11 22:22] LABS: JCV Index Value 2.73 index
== END 2025-03-07 10:01 | disposition home or self-care (01) ==
LOC: HO.LAB 10:00
PROVIDERS: Absent Provider Psychiatry & Neurology Neurology; PCP Internal Medicine; Referring Provider Internal Medicine; Visit Provider Nurse Practitioner Family
DX: Z00.00 Encounter for general adult medical examination without abnormal findings (principal); K21.9 Gastro-esophageal reflux disease without esophagitis; J45.998 Other asthma; R13.10 Dysphagia, unspecified; G35.D Multiple sclerosis, unspecified; G43.109 Migraine with aura, not intractable, without status migrainosus; N30.01 Acute cystitis with hematuria; Z12.4 Encounter for screening for malignant neoplasm of cervix; K59.00 Constipation, unspecified; Z79.899 Other long term (current) drug therapy
CPT/HCPCS: 36415; 80053; 82248; 85025; 86711; 99212

== ENCOUNTER 2025-03-07 10:00 | Outpatient (AMB) | payer MEDICAID, SELFPAY ==
[2025-03-07 10:01] VITALS: BMI 34.1
--- NOTE | 2025-03-07 10:01 | MHC.OFFVIS ---
Vital Signs 03/07/25 10:01 Height 5 ft 4 in Weight 198 lb 13.711 oz BMI 34.1 Intake Visit Reasons: discuss prep Intake Note: Patient in office today in follow up to discuss colo preparation. CC: Patient states that she always have GERD. Denies other GI symptoms. Cardiopulmonary Physical Therapist Required: No Accompanied by: Self / Same As Patient Allergies kiwi Allergy (Severe, Verified 03/07/25 10:04) Anaphylaxis seafood Allergy (Severe, Verified 03/07/25 10:04) Anaphylaxis No Known Drug Allergies Allergy (Unknown, Verified 03/07/25 10:04) none pineapple Allergy (Verified 03/07/25 10:04) redness and itching Medication List - Last Reconciled 03/07/25 by Jeanne Liao CNP albuterol sulfate 90 mcg/actuation (ProAir HFA) 0 mcg inhalation bethanechol chloride 50 mg PO BID 90 days bisacodyl 5 mg PO ONCE 1 day diclofenac sodium 1% 4 grams topical QID 30 days dimethyl fumarate (Tecfidera) 240 mg PO BID fluticasone propionate 110 mcg/actuation (Flovent HFA) 0 mcg inhalation gabapentin 100 mg PO BID ibuprofen 600 mg PO TID montelukast 10 mg PO DAILY omeprazole 40 mg PO DAILY peg 3350-electrolytes 236-22.74-6.74 -5.86 gram 240 mL PO Q10M polyethylene glycol 3350 (Miralax) 17 grams PO DAILY 30 days simethicone (Gas Relief (simethicone)) 125 mg PO ONCE sumatriptan succinate 50 mg PO DAILY PRN HPI HPI discuss prep: Details: Patient is a 44-year-old female with PMH of multiple sclerosis, OA, asthma, depression, neurogenic bladder and GERD. Follow-up of GERD symptoms (reflux), dysphagia, and constipation. Shama presents for follow-up of ongoing gastrointestinal symptoms. She has a longstanding history of difficulty swallowing, which has been present since childhood and remains stable without recent worsening. Associated symptoms include episodes of choking, though severity is not escalating. She is currently taking omeprazole 20 mg daily for reported reflux symptoms, with partial improvement?heartburn now occurs once or twice weekly instead of three times weekly. She continues to use calcium carbonate as needed for breakthrough symptoms. Constipation persists with bowel movements occurring two to three times weekly; stool is now soft rather than hard with recent increased fiber intake. She denies associated abdominal pain, nausea, vomiting, or recent fevers. Multiple sclerosis is noted as a comorbid condition, which may contribute to her dysphagia. There have been no recent medication changes and her weight remains stable. She is awaiting both an upper endoscopy and a scheduled barium swallow study for further evaluation. Endoscopy screening is pending. [facility] Medical History (Updated 02/25/25 @ 15:53 by Silvia Mann MD) UTI (urinary tract infection) Arthritis Trigeminal neuralgia Nystagmus Migraine Spastic bladder Ataxia Fatigue Multiple sclerosis Chronic knee pain Dysphagia Constipation Colon cancer screening GERD (gastroesophageal reflux disease) Multiple sclerosis Neurogenic bladder Incomplete emptying of bladder Primary osteoarthritis of right knee Primary osteoarthritis of left knee Thrombosed external hemorrhoid Surgical History History of surgery Family History Mother Arthritis Social History Alcohol intake: current Alcohol intake frequency: holidays/special occasions only Current occupational status: disabled Current occupation: rt handed Review of Systems Const Reports as per HPI ENT Reports as per HPI Card Reports as per HPI Resp Reports as per HPI GI Reports as per HPI Reports as per HPI Physical Exam Vital Signs: BMI result Body Mass Index 34.1 Const General: healthy appearing, no acute distress and well developed Nutritional Appearance: average body habitus Orientation/consciousness: patient oriented x3 HEENT Head: Yes normal to inspection, Yes normocephalic and Yes atraumatic Face and sinus: Yes normal facial exam Eyes General: appearance normal, both eyes and all related structures Neck Neck: Yes normal visual inspection Resp Effort & Inspection: normal respiratory effort, able to speak in complete sentences, no tracheal deviation and symmetric chest movement Cardio Jugular venous distension: no JVD Neuro General: patient oriented x3 Gait exam (Neuro): Normal gait present and Assistive device used Psych Appearance: grossly normal Mental Status: mental status grossly normal Speech and movement: Normal speech and movement present Affect: normal affect Attitude: cooperative Thought process: Normal thought process present Thought content: Normal thought content present Insight: Good insight present (Psych) Judgement: Good judgement present (Psych) Assessment & Plan Assessment & Plan (1) GERD (gastroesophageal reflux disease): Code(s): K21.9 - Gastro-esophageal reflux disease without esophagitis Category: Medical Qualifiers: Esophagitis presence: esophagitis presence not specified Qualified Code(s): K21.9 - Gastro-esophageal reflux disease without esophagitis Plan: Persistent reflux symptoms, partially controlled with omeprazole; supported by patient report and use of antacids. Additional Testing: Awaiting upper endoscopy. Medication Management: Increase omeprazole to 40 mg daily (take two 20 mg tablets until script runs out, then transition to 40 mg tablet); continue Tums prn. Lifestyle Recommendations: Avoid dietary triggers, continue high fiber intake, eat slowly, avoid eating close to bedtime, elevate head of bed if needed. Follow-Up: Reassess after upper endoscopy; contact clinic if symptoms worsen. (2) Dysphagia: Code(s): R13.10 - Dysphagia, unspecified Category: Medical Qualifiers: Dysphagia type: unspecified Qualified Code(s): R13.10 - Dysphagia, unspecified Plan: Longstanding difficulty swallowing, not worsening, with underlying MS. History of choking episodes. Additional Testing: Barium swallow scheduled next week; upper endoscopy pending. Medication Management: Supportive care?take pills one at a time, consider mixing with juice or pudding. Lifestyle Recommendations: Chew food thoroughly, eat slowly, utilize texture modifications as needed. Follow-Up: Review results of swallow study and upper endoscopy. (3) Constipation: Code(s): K59.00 - Constipation, unspecified Category: Medical Qualifiers: Constipation type: unspecified constipation type Qualified Code(s): K59.00 - Constipation, unspecified Plan: Chronic constipation, improved with fiber, continues with 2?3 BMs/week, softening of stool consistency. Additional Testing: None at present; colonoscopy prep planned. Medication Management: Miralax daily; colonoscopy prep switched to polyethylene glycol (GoLYTELY); continue laxative tablets as instructed. -instructions on clear liquid diet day of prep given -Patient educated on colonoscopy scheduling process, procedure preparation, including avoiding certain foods and ensuring clear liquid intake -Advised on necessity for ride post-procedure due to sedation. Lifestyle Recommendations: Maintain high fiber diet, increase hydration, clear liquid diet prior to colonoscopy, avoid red/blue/purple dyes before procedure. Follow-Up: Monitor regularity; assess post-colonoscopy; increase Miralax if frequency worsens. Plan Follow-up after endoscopy or sooner as needed Time: I spent a total of 23 minutes on the date of encounter which includes: Preparing to see the patient (reviewed previous documentation, test results and medical history) Performing a medically appropriate exam and/or evaluation Ordering medications, tests, and procedures Documenting clinical information in the health record Medications: New simethicone (Gas Relief (simethicone)) per colonoscopy prep instructions 125 mg PO ONCE 4 caps 0RF abdominal distention peg 3350-electrolytes 236-22.74-6.74 -5.86 gram until fecal effluent is clear 240 mL PO Q10M 4,000 mL 0RF Changed From omeprazole 20 mg PO DAILY 90 caps 1RF To omeprazole increased 03/07/25 40 mg PO DAILY Coding Level of Care Code Established Pt Est Pt Level 3 (68967) Patient Type Established Diagnoses Gastroesophageal reflux disease, unspecified whether esophagitis present K21.9 Esophagitis presence: esophagitis presence not specified Dysphagia, unspecified type R13.10 Dysphagia type: unspecified Constipation, unspecified constipation type K59.00 Constipation type: unspecified constipation type
== END 2025-03-07 10:26 | disposition home or self-care (01) ==
LOC: HO.HGI 10:00
PROVIDERS: PCP Internal Medicine; Visit Provider Nurse Practitioner Family
DX: K21.9 Gastro-esophageal reflux disease without esophagitis (principal); R13.10 Dysphagia, unspecified; K59.00 Constipation, unspecified
CPT/HCPCS: 99213

== ENCOUNTER 2025-04-09 11:15 | Outpatient (AMB) | payer MEDICAID, SELFPAY ==
--- NOTE | 2025-04-09 11:20 | A.OFFVIS_ITS ---
Vital Signs 04/09/25 11:22 Height 5 ft 4 in Weight 200 lb BMI 34.3 Intake Visit Reasons: Inj-B/L knee cortisone Injection Intake Note: Shama is a 45 year old female who presents today for a cortisone injection in her bilateral knee, last injection Euflexxa 03/14/24. Patient was advise by pain management to hold off on gel injections until a couple of months after removal of nerve stimulator. Today patient wishes to have gel injections. She would like to discuss treatment plan. States nerve stimulator helped for a little however her pain returned. Allergies kiwi Allergy (Severe, Verified 04/09/25 11:22) Anaphylaxis seafood Allergy (Severe, Verified 04/09/25 11:22) Anaphylaxis No Known Drug Allergies Allergy (Unknown, Verified 04/09/25 11:22) none pineapple Allergy (Verified 04/09/25 11:22) redness and itching Medication List - Last Reconciled 04/09/25 by Deborah Vidal PA-C albuterol sulfate 90 mcg/actuation (ProAir HFA) 0 mcg inhalation bethanechol chloride 50 mg PO BID 90 days bisacodyl 5 mg PO ONCE 1 day diclofenac sodium 1% 4 grams topical QID 30 days dimethyl fumarate (Tecfidera) 240 mg PO BID fluticasone propionate 110 mcg/actuation (Flovent HFA) 0 mcg inhalation gabapentin 100 mg PO BID ibuprofen 600 mg PO TID montelukast 10 mg PO DAILY omeprazole 40 mg PO DAILY peg 3350-electrolytes 236-22.74-6.74 -5.86 gram 240 mL PO Q10M polyethylene glycol 3350 (Miralax) 17 grams PO DAILY 30 days simethicone (Gas Relief (simethicone)) 125 mg PO ONCE sumatriptan succinate 50 mg PO DAILY PRN HPI HPI Inj-B/L knee cortisone Injection: Details: 45-year-old female returns to the office today for bilateral knee pain. She continues to have discomfort with daily activities. She was seen pain management for a spinal stimulators. They were recently. She ambulates with a walker at baseline. [facility] Medical History (Updated 02/25/25 @ 15:53 by Silvia Mann MD) UTI (urinary tract infection) Arthritis Trigeminal neuralgia Nystagmus Migraine Spastic bladder Ataxia Fatigue Multiple sclerosis Chronic knee pain Dysphagia Constipation Colon cancer screening GERD (gastroesophageal reflux disease) Multiple sclerosis Neurogenic bladder Incomplete emptying of bladder Primary osteoarthritis of right knee Primary osteoarthritis of left knee Thrombosed external hemorrhoid Surgical History History of surgery Family History Mother Arthritis Social History Alcohol intake: current Alcohol intake frequency: holidays/special occasions only Current occupational status: disabled Current occupation: rt handed Review of Systems Const All systems reviewed & are unremarkable except as noted in HPI and below Physical Exam Vital Signs: BMI result Body Mass Index 34.3 Const General: cooperative and no acute distress Orientation/consciousness: patient oriented x3 Resp Effort & Inspection: normal respiratory effort and able to speak in complete sentences Cardio Peripheral pulses: Peripheral pulses 2+ throughout Neuro General: patient oriented x3 Extrem Other: Bilateral knees normal to inspection. She does have valgus alignment. Medial joint line tenderness and tenderness along the retropatellar portion of the knee. She has full range of motion with crepitus. No ligamentous laxity. Calf supple nontender. Neurovascular intact. Office Procedures AMB Joint Injection/Aspiration Joint Injection/Aspiration Primary Site: right knee Secondary Site: left knee Prep: site was prepped using aseptic technique, ethochloride spray was applied and injection warnings given Injected: 40 mg of, with 3 mL of, 1% plain lidocaine, 0.25% bupivacaine, in the joint and decadron Approach Used: anterolateral Procedure: The patient tolerated the procedure well and there was some relief with the local anesthesia Coding 45942 - Glenohumeral/Tronchanteric Bursa/Intraarticular Procedure code (CPT) selection complete Assessment & Plan Assessment & Plan (1) Primary osteoarthritis of left knee: Code(s): M17.12 - Unilateral primary osteoarthritis, left knee Category: Medical (2) Primary osteoarthritis of right knee: Code(s): M17.11 - Unilateral primary osteoarthritis, right knee Category: Medical Plan We discussed options today, which include steroid njection. The patient did consent to move forward with the bilateral knee steroid injection, which was tolerated well. I recommended rest, ice, and elevation and OTC anti- inflammatories as needed for discomfort. If symptoms persist or worsen over the next 6 weeks, patient will contact the office, otherwise she will follow up when we get the gel injections approved. Orders: Orders XR Knee Alex 3V Today M25.561 - Pain in right knee, M25.562 - Pain in left knee Coding Level of Care Code Est Pt Level 3 (40738) Complex EM visit Add On G2211 Diagnoses Primary osteoarthritis of left knee M17.12 Primary osteoarthritis of right knee M17.11 CPT Codes Coding - Joint 7: 60727 - Glenohumeral/Tronchanteric Bursa/Intraarticular ([id number])
[2025-04-09 11:22] VITALS: BMI 34.3
--- OUTSIDE RECORDS SUMMARY | 2025-04-09 13:58 | XMS_ITS | Encounter Summary ---
Author Organization [facility] Address [address] [place] [address] Care Team Providers Care Shoe Coverer Name Role Phone Annetta Hayes MD Primary Care Provider [phone] Encounter Details Date Type Department Care Team (Late st Contact Info) Description 02/13/2025 Lab Requisition [facility] - Main Lab [address] [facility] [place] [address] Annetta Hayes MD [address] [place] [address] [place] [address] Encounter for screening for malignant neoplasm of [...] LAB MICROBIOLOGY METHOD 02/13/2025 2:47 PM EDT [facility] Brushing/Spatula Cervix uteri structure / Unknown 02/11/2025 02/13/2025 6:22 AM EDT us Annetta Hayes MD LAB MOLECULAR DIAGNOSTICS ORD ERABLES Final Result Performing Organization Address [facility]/ZIP Co de Phone Number [facility] [address] [place] [address], [place] [phone] * Trichomonas vaginalis molecular study (02/11/2025 12:00 AM EDT) Pathologist [facility] Trichomonas vaginalis Negative Negative LAB MICROBIOLOGY METHOD 02/14/2025 1:24 PM EDT [facility] Brushing/Spatula Cervix uteri structure / Unknown 02/11/2025 02/13/2025 6:22 AM EDT us Annetta Hayes MD LAB BLOOD ORDERABLES Final Re sult Performing Organization Address City/[facility]/ZIP Co de Phone Number [facility] [address] [place] [address], [place] [phone] * Chlamydia trachomatis and neisseria gonorrhoeae by tma, thinprep (02/11/2025 12:00 AM EDT) N. gonorrhoeae, RNA Probe Negative Negative LAB MICROBIOLOGY METHOD 02/14/2025 1:15 PM EDT [facility] Chlamydia, RNA Probe Negative Negative LAB MICROBIOLOGY METHOD 02/14/2025 1:15 PM EDT [facility] Brushing/Spatula Cervix uteri structure / Unknown 02/11/2025 02/13/2025 6:22 AM EDT us Annetta Hayes MD LAB CYTOLOGY ORDERABLES Final Result Performing Organization Address City/[facility]/ZIP Co de Phone Number [facility] [address] [place] [address], * Pap smear (02/11/2025 12:00 AM EDT) Interpretation Negative for intraepithelial lesion or malignancy 02/14/2025 1:09 PM EDT [facility] General Categorization Negative 02/14/2025 1:09 PM EDT [facility] LMP 02/14/2025 1:09 PM EDT [facility] Comment:4 wks Specimen Adequacy Satisfactory for evaluation, endocervical/courtney sformation zone component present 02/14/2025 1:09 PM EDT [facility] Pap Methodology Liquid Based Pap Test 02/14/2025 1:09 PM EDT [facility] Disclaimer The Pap test is a screening test which carries an inherent false negative rate. These test results should be correlated with the patient's clinical findings and history. This Pap test was processed using an automated screening system. Technical cytopathology services provided by [facility], at [address] [place] [address] (CLIA # [id number]/Thien Rizo MD, Bureau Director.) 02/14/2025 1:09 PM EDT [facility] Console Pap Interpretation Reported 02/14/2025 1:09 PM EDT [facility] Brushing/Spatula Cervix uteri structure / Unknown 02/11/2025 02/13/2025 6:22 AM EDT us Annetta Hayes MD LAB CYTOLOGY ORDERABLES Final Result Performing Organization Address City/[facility]/ZIP Co de Phone Number [facility] [address] [place] [address], [place] [phone] documented in this encounter Visit Diagnoses Diagnosis Encounter for screening for malignant neoplasm of cervix documented in this encounter Care Teams Shoe Coverer Relationship Specialty Start Date End Date Annetta Hayes MD [address] [place] [address] [place] [address] PCP - General Internal Medicine 04/18/19 documented as of this encounter
--- OUTSIDE RECORDS SUMMARY | 2025-04-09 13:58 | XMS_ITS | Clinical Summary ---
Author Organization [address] [facility] Address [address] [place] [address] Phone Care Team Providers Care Chief Security Officer Name Role Phone Annetta Hayes MD Primary Care Provider [phone] Encounters Date Type Department Care Team Description 02/13/2025 Lab Requisition [facility] - Main Lab [address] [facility] [place] [address] Annetta Hayes MD Encounter for [...] Last Done Comments Breast Cancer Screening 1978 Colorectal Cancer Screening: Colonoscopy 1978 DTaP,Tdap,and Td Vaccines (1 - Tdap) 1997 Hepatitis B Vaccines (1 of 3 - 19+ 3-dose series) 1997 Depression Screening 05/29/2024 COVID-19 Vaccine ( - 2024-2 6 season) 2025 Influenza Vaccine (#1) 2025 HIV Screening 02/13/2025 Hepatitis C Screening 02/13/2025 [...] CYTOLOGY ORDERABLES Final Result Performing Organization Address [facility]/ZIP Co de Phone Number [facility] [address] [place] [address], [place] [phone] * HPV with reflex genotype (02/11/2025 12:00 AM EDT) HPV Negative Negative LAB MICROBIOLOGY METHOD 02/13/2025 2:47 PM EDT [facility] Brushing/Spatula Cervix uteri structure / Unknown 02/11/2025 02/13/2025 6:22 AM EDT us Annetta Hayes MD LAB MOLECULAR DIAGNOSTICS ORD ERABLES Final Result Performing Organization Address [facility] Co de Phone Number [facility] [address] [place] [address], [place] [phone] * Trichomonas vaginalis molecular study (02/11/2025 12:00 AM EDT) Trichomonas vaginalis Negative Negative LAB MICROBIOLOGY METHOD 02/14/2025 1:24 PM EDT [facility] Brushing/Spatula Cervix uteri structure / Unknown 02/11/2025 02/13/2025 6:22 AM EDT us Annetta Hayes MD LAB BLOOD ORDERABLES Final Re sult Performing Organization Address City/[facility]/ZIP Co de Phone Number [facility] [address] [place] [address], [place] [phone] * Pap smear (02/11/2025 12:00 AM EDT) [...] screening system. Technical cytopathology services provided by [facility], at [address] [place] [address] (CLIA # [id number]/Thien Rizo MD, Endo Tech.) 02/14/2025 1:09 PM EDT [facility] Console Pap Interpretation Reported 02/14/2025 1:09 PM EDT [facility] Brushing/Spatula Cervix uteri structure / Unknown 02/11/2025 02/13/2025 6:22 AM EDT us Annetta Hayes MD LAB CYTOLOGY ORDERABLES Final Result [facility] [address] [place] [address], from Last 3 Months Insurance [place]ICAID - [place] Care Teams Chief Security Officer Relationship Specialty Start Date End Date Annetta Hayes MD [address] [place] [address] [place] [address] PCP - General Internal Medicine 04/18/19
== END 2025-04-09 12:42 | disposition home or self-care (01) ==
LOC: HO.HOS 11:16
PROVIDERS: PCP Internal Medicine; Visit Provider Physician Assistant
DX: M17.0 Bilateral primary osteoarthritis of knee (principal)
CPT/HCPCS: 20610; 99213

== ENCOUNTER → 2025-04-09 11:20 | Outpatient (BNV) | payer MEDICAID, SELFPAY | PROVIDERS: Visit Provider Radiology Diagnostic Radiology | DX: M17.0 Bilateral primary osteoarthritis of knee (principal) | CPT/HCPCS: 73562 ==

== ENCOUNTER 2025-04-09 14:56 | Outpatient (REF) | payer MEDICAID, SELFPAY ==
--- NOTE | ~2025-04-09 | XR_ITS ---
Exam: X-ray, bilateral knees.XR KNEE 3 VIEWS BILATERAL TECHNIQUE: Three views lower extremity joint, bilateral knees INDICATION: pain COMPARISON: August 09, 2024 left knee and December 18, 2023 right knee FINDINGS: RIGHT KNEE: There is mild to moderate narrowing of medial lateral joint spaces appear similar to the prior exam. Tricompartmental marginal osteophytes are largest along the lateral joint line. There is no joint effusion. LEFT KNEE: There is severe narrowing of the lateral compartment and mild narrowing of the medial compartment. There is subchondral sclerosis in the lateral tibial plateau. There are tricompartmental marginal osteophytes. On lateral, there is ossified density projecting cephalad to patella, anterior to the distal femur. This was present on the prior examination but less visible. XR/XR Knee Alex 3V IMPRESSION: Right knee: Moderate osteoarthritis is similar to the prior exam. Left knee: Severe osteoarthritis is stable to slightly increased since the prior examination. Additionally, there is an ossified density visible in the lateral projection in the region suprapatellar pouch. This could represent calcification of the suprapatellar pouch, large osteophyte, or an intra-articular body. Electronically signed by: Gabriele Ramírez MD 04/09/2025 11:46 AM EST
--- OUTSIDE RECORDS SUMMARY | 2025-04-10 18:13 | XMS_ITS | Encounter Summary ---
Author Organization [facility] Address [address] [place] [address] Care Team Providers Care Security Guard Name Role Phone Annetta Hayes MD Primary Care Provider [phone] Encounter Details Date Type Department Care Team (Late st Contact Info) Description 02/13/2025 Lab Requisition [facility] - Main Lab [address] [facility] [place] [address] Annetta Hayes MD [address] [place] [address] [place] [address] Encounter for screening for malignant neoplasm of [...] ORD ERABLES Final Result Performing Organization Address [facility]/ZIP Co de Phone Number [facility] [address] [place] [address], [place] [phone] * Trichomonas vaginalis molecular study (02/11/2025 12:00 AM EDT) Pathologist [facility] Trichomonas vaginalis Negative Negative LAB MICROBIOLOGY METHOD 02/14/2025 1:24 PM EDT [facility] Brushing/Spatula Cervix uteri structure / Unknown 02/11/2025 02/13/2025 6:22 AM EDT us Annetta Hayes MD LAB BLOOD ORDERABLES Final Re sult Performing Organization Address City/[facility]/ZIP Co de Phone Number [facility] [address] [place] [address], [place] [phone] * Chlamydia trachomatis and neisseria gonorrhoeae by [...] CYTOLOGY ORDERABLES Final Result Performing Organization Address City/[facility]/ZIP Co de Phone Number [facility] [address] [place] [address], * Pap smear (02/11/2025 12:00 AM EDT) [...] screening system. Technical cytopathology services provided by [facility], at [address] [place] [address] (CLIA # [id number]/Thien Rizo MD, Convertible Top Installer.) 02/14/2025 1:09 PM EDT [facility] Console Pap Interpretation Reported 02/14/2025 1:09 PM EDT [facility] Brushing/Spatula Cervix uteri structure / Unknown 02/11/2025 02/13/2025 6:22 AM EDT us Annetta Hayes MD LAB CYTOLOGY ORDERABLES Final Result Performing Organization Address City/[facility]/ZIP Co de Phone Number [facility] [address] [place] [address], [place] [phone] documented in this encounter Visit Diagnoses Diagnosis Encounter for screening for malignant neoplasm of cervix documented in this encounter Care Teams Security Guard Relationship Specialty Start Date End Date Annetta Hayes MD [address] [place] [address] [place] [address] PCP - General Internal Medicine 04/18/19 documented as of this encounter
--- OUTSIDE RECORDS SUMMARY | 2025-04-10 18:13 | XMS_ITS | Clinical Summary ---
Author Organization 299 [facility] Address [address] [place] [address] Phone Care Team Providers Care Construction Equipment Overhauler Name Role Phone Annetta Hayes MD Primary Care Provider [phone] Encounters Date Type Department Care Team Description 02/13/2025 Lab Requisition [facility] - Main Lab [address] [facility] [place] [address] Annetta Hayes MD Encounter for [...] LAB MICROBIOLOGY METHOD 02/14/2025 1:15 PM EDT [facility] Chlamydia, RNA Probe Negative Negative LAB MICROBIOLOGY METHOD 02/14/2025 1:15 PM EDT [facility] Brushing/Spatula Cervix uteri structure / Unknown 02/11/2025 02/13/2025 6:22 AM EDT us Annetta Hayes MD LAB CYTOLOGY ORDERABLES Final Result Performing Organization Address [facility]/ZIP Co de Phone Number [facility] [address] [place] [address], [place] [phone] * HPV with reflex genotype (02/11/2025 12:00 AM EDT) HPV Negative Negative LAB MICROBIOLOGY METHOD 02/13/2025 2:47 PM EDT [facility] Brushing/Spatula Cervix uteri structure / Unknown 02/11/2025 02/13/2025 6:22 AM EDT us Annetta Hayes MD LAB MOLECULAR DIAGNOSTICS ORD ERABLES Final Result Performing Organization Address [facility] Co de Phone Number [facility] [address] [place] [address], [place] [phone] * Trichomonas vaginalis molecular study (02/11/2025 12:00 AM EDT) Trichomonas vaginalis Negative Negative LAB MICROBIOLOGY METHOD 02/14/2025 1:24 PM EDT [facility] Brushing/Spatula Cervix uteri structure / Unknown 02/11/2025 02/13/2025 6:22 AM EDT us Annetta Hayes MD LAB BLOOD ORDERABLES Final Re sult Performing Organization Address City/[facility]/ZIP Co de Phone Number [facility] [address] [place] [address], [place] [phone] * Pap smear (02/11/2025 12:00 AM EDT) Interpretation Negative for intraepithelial lesion or malignancy 02/14/2025 1:09 PM EDT [facility] General Categorization Negative 02/14/2025 1:09 PM EDT [facility] LMP 02/14/2025 1:09 PM EDT [facility] Comment:4 wks Specimen Adequacy Satisfactory for evaluation, endocervical/courtney sformation zone component present 02/14/2025 1:09 PM EDT [facility] Pap Methodology Liquid Based Pap Test 02/14/2025 1:09 PM EDT [facility] Disclaimer The Pap test is a screening test which carries an inherent false negative rate. These test results should be correlated with the patient's clinical findings and history. This Pap test was processed using an automated screening system. Technical cytopathology services provided by [facility], at [address] [place] [address] (CLIA # [id number]/Thien Rizo MD, Package Wrapper.) 02/14/2025 1:09 PM EDT [facility] Console Pap Interpretation Reported 02/14/2025 1:09 PM EDT [facility] Brushing/Spatula Cervix uteri structure / Unknown 02/11/2025 02/13/2025 6:22 AM EDT us Annetta Hayes MD LAB CYTOLOGY ORDERABLES Final Result [facility] [address] [place] [address], from Last 3 Months Insurance [place] - [place] Care Teams Construction Equipment Overhauler Relationship Specialty Start Date End Date Annetta Hayes MD [address] [place] [address] [place] [address] PCP - General Internal Medicine 04/18/19
== END 2025-04-09 14:57 | disposition home or self-care (01) ==
LOC: HO.HOSX 14:56
PROVIDERS: Visit Provider Physician Assistant
DX: M17.0 Bilateral primary osteoarthritis of knee (principal)
CPT/HCPCS: 20610; 73562; 99212; J0665; J1100; J2003

== ENCOUNTER 2025-04-30 09:44 | Outpatient (AMB) | payer MEDICAID, SELFPAY ==
--- NOTE | 2025-04-30 09:50 | MHC.OFFVIS ---
Intake Visit Reasons: B/L knee Euflexxa #1 Intake Note: Shama is a 45 year old female who presents today for bilateral knee Euflexxa injections #1. Allergies kiwi Allergy (Severe, Verified 04/30/25 09:51) Anaphylaxis seafood Allergy (Severe, Verified 04/30/25 09:51) Anaphylaxis No Known Drug Allergies Allergy (Unknown, Verified 04/30/25 09:51) none pineapple Allergy (Verified 04/30/25 09:51) redness and itching Medication List - Last Reconciled 04/30/25 by Deborah Vidal PA-C albuterol sulfate 90 mcg/actuation (ProAir HFA) 0 mcg inhalation bethanechol chloride 50 mg PO BID 90 days bisacodyl 5 mg PO ONCE 1 day diclofenac sodium 1% 4 grams topical QID 30 days dimethyl fumarate (Tecfidera) 240 mg PO BID fluticasone propionate 110 mcg/actuation (Flovent HFA) 0 mcg inhalation gabapentin 100 mg PO BID ibuprofen 600 mg PO TID montelukast 10 mg PO DAILY omeprazole 40 mg PO DAILY peg 3350-electrolytes 236-22.74-6.74 -5.86 gram 240 mL PO Q10M polyethylene glycol 3350 (Miralax) 17 grams PO DAILY 30 days simethicone (Gas Relief (simethicone)) 125 mg PO ONCE sumatriptan succinate 50 mg PO DAILY PRN HPI HPI B/L knee Euflexxa #1: Details: 45 year old female who presents today for bilateral knee Euflexxa injections #1. [facility] Medical History (Updated 02/25/25 @ 15:53 by Silvia Mann MD) UTI (urinary tract infection) Arthritis Trigeminal neuralgia Nystagmus Migraine Spastic bladder Ataxia Fatigue Multiple sclerosis Chronic knee pain Dysphagia Constipation Colon cancer screening GERD (gastroesophageal reflux disease) Multiple sclerosis Neurogenic bladder Incomplete emptying of bladder Primary osteoarthritis of right knee Primary osteoarthritis of left knee Thrombosed external hemorrhoid Surgical History History of surgery Family History Mother Arthritis Social History Alcohol intake: current Alcohol intake frequency: holidays/special occasions only Current occupational status: disabled Current occupation: rt handed Review of Systems Const All systems reviewed & are unremarkable except as noted in HPI and below Physical Exam Const General: cooperative and no acute distress Orientation/consciousness: patient oriented x3 Resp Effort & Inspection: normal respiratory effort and able to speak in complete sentences Cardio Peripheral pulses: Peripheral pulses 2+ throughout Neuro General: patient oriented x3 Extrem Other: Bilateral knees normal to inspection. She does have valgus alignment. Medial joint line tenderness and tenderness along the retropatellar portion of the knee. She has full range of motion with crepitus. No ligamentous laxity. Calf supple nontender. Neurovascular intact. Office Procedures AMB Joint Injection/Aspiration Joint Injection/Aspiration Primary Site: Right Knee Secondary Site: Left Knee Prep: site was prepped using aseptic technique, ethochloride spray was applied and injection warnings given Injected: Euflexxa (#1) Approach Used: anterolateral Procedure: The patient tolerated the procedure well and there was some relief with the local anesthesia Coding 39261 - Glenohumeral/Tronchanteric Bursa/Intraarticular Procedure code (CPT) selection complete Assessment & Plan Assessment & Plan (1) Primary osteoarthritis of right knee: Code(s): M17.11 - Unilateral primary osteoarthritis, right knee Category: Medical (2) Primary osteoarthritis of left knee: Code(s): M17.12 - Unilateral primary osteoarthritis, left knee Category: Medical Plan Plan was to proceed with gel injection today. #1 Bilat knee euflexxa Injection performed today which the patient tolerated well. She will rest ice and use anti-inflammatories as needed for the next several days. I will see her back in 1 week for injection number #2 Coding Level of Care Code Procedure Only Diagnoses Primary osteoarthritis of right knee M17.11 Primary osteoarthritis of left knee M17.12 CPT Codes Coding - Joint 7: 50721 - Glenohumeral/Tronchanteric Bursa/Intraarticular ([id number])
--- OUTSIDE RECORDS SUMMARY | 2025-04-30 10:50 | XMS_ITS | Clinical Summary ---
Author Organization 299 [facility] Address [address] [place] [address] Phone Care Team Providers Care Svp Research And Strategic Analysis Name Role Phone Annetta Hayes MD Primary Care Provider [phone] Encounters Date Type Department Care Team Description 02/13/2025 Lab Requisition [facility] - Main Lab 299 [facility] [place] [address] Annetta Hayes MD Encounter for [...] CYTOLOGY ORDERABLES Final Result Performing Organization Address [facility]/ZIP Co de Phone Number [facility] [address] [place] [address], [place] [phone] * HPV with reflex genotype (02/11/2025 12:00 AM EDT) HPV Negative Negative LAB MICROBIOLOGY METHOD 02/13/2025 2:[address] [facility] Brushing/Spatula Cervix uteri structure / Unknown 02/11/2025 02/13/2025 6:22 AM EDT us Annetta Hayes MD LAB MOLECULAR DIAGNOSTICS ORD ERABLES Final Result Performing Organization Address [facility] Co de Phone Number [facility] [address] [place] [address], [place] [phone] * Trichomonas vaginalis molecular study (02/11/2025 12:00 AM EDT) Trichomonas vaginalis Negative Negative LAB MICROBIOLOGY METHOD 02/14/2025 1:[address] [facility] Brushing/Spatula Cervix uteri structure / Unknown 02/11/2025 02/13/2025 6:22 AM EDT us Annetta Hayes MD LAB BLOOD ORDERABLES Final Re sult Performing Organization Address City/[facility]/ZIP Co de Phone Number [facility] [address] [place] [address], [place] [phone] * Pap smear (02/11/2025 12:00 AM EDT) Interpretation Negative for intraepithelial lesion or malignancy 02/14/2025 1:[address] [facility] at 1308 EDT General Categorization Negative 02/14/2025 1:09 PM EDT [...] screening system. Technical cytopathology services provided by [facility], at [address] [place] [address] (CLIA # [id number]/Thien Rizo MD, Trust And Estates Attorney.) 02/14/2025 1:[address] [facility] Console Pap Interpretation Reported 02/14/2025 1:[address] [facility] Brushing/Spatula Cervix uteri structure / Unknown 02/11/2025 02/13/2025 6:22 AM EDT us Annetta Hayes MD LAB CYTOLOGY ORDERABLES Final Result [facility] [address] [place] [address], from Last 3 Months Insurance [place] - [place] Care Teams Svp Research And Strategic Analysis Relationship Specialty Start Date End Date Annetta Hayes MD [address] [place] [address] [place] [address] PCP - General Internal Medicine 04/18/19
--- OUTSIDE RECORDS SUMMARY | 2025-04-30 10:50 | XMS_ITS | Encounter Summary ---
Author Organization [facility] Address [address] [place] [address] Care Team Providers Care Administrative Nursing Supervisor Name Role Phone Annetta Hayes MD Primary Care Provider [phone] Encounter Details Date Type Department Care Team (Late st Contact Info) Description 02/13/2025 Lab Requisition [facility] - Main Lab [address] [facility] [address] Annetta Hayes MD [address] [place] [address] [place] [address] Encounter for screening for malignant neoplasm of [...] LAB MICROBIOLOGY METHOD 02/13/2025 2:47 PM EDT [facility] Brushing/Spatula Cervix uteri structure / Unknown 02/11/2025 02/13/2025 6:22 AM EDT us Annetta Hayes MD LAB MOLECULAR DIAGNOSTICS ORD ERABLES Final Result Performing Organization Address [facility]/ZIP Co de Phone Number [facility] [address] [place] [address], [place] [phone] * Trichomonas vaginalis molecular study (02/11/2025 12:00 AM EDT) Pathologist [facility] Trichomonas vaginalis Negative Negative LAB MICROBIOLOGY METHOD 02/14/2025 1:24 PM EDT [facility] Brushing/Spatula Cervix uteri structure / Unknown 02/11/2025 02/13/2025 6:22 AM EDT us Annetta Hayes MD LAB BLOOD ORDERABLES Final Re sult Performing Organization Address City/[facility]/ZIP Co de Phone Number [facility] [address] [place] [address], [place] [phone] * Chlamydia trachomatis and neisseria gonorrhoeae by tma, thinprep (02/11/2025 12:00 AM EDT) N. gonorrhoeae, RNA Probe Negative Negative LAB MICROBIOLOGY METHOD 02/14/2025 1:15 PM EDT [facility] Chlamydia, RNA Probe Negative Negative LAB MICROBIOLOGY METHOD 02/14/2025 1:15 PM EDT [facility] Brushing/Spatula Cervix uteri structure / Unknown 02/11/2025 02/13/2025 6:22 AM EDT us Annetta Hayes MD LAB CYTOLOGY ORDERABLES Final Result [facility] [address] [place] [address], * Pap smear (02/11/2025 12:00 AM EDT) Interpretation Negative for intraepithelial lesion or malignancy 02/14/2025 1:09 PM EDT [facility] at 1308 EDT General Categorization Negative 02/14/2025 1:09 PM EDT [facility] LMP 02/14/2025 1:09 PM EDT [facility] Comment:4 wks Specimen Adequacy Satisfactory for evaluation, endocervical/courtney sformation zone component present 02/14/2025 1:09 PM EDT [facility] Pap Methodology Liquid Based Pap Test 02/14/2025 1:09 PM EDT [facility] Disclaimer The Pap test is a screening test which carries an inherent false negative rate. These test results should be correlated with the patient's clinical findings and history. This Pap test was processed using an automated screening system. Technical cytopathology services provided by [facility], at [address] [place] [address] (CLIA # [id number]/Thien Rizo MD, Chief Radiation Therapist.) 02/14/2025 1:09 PM EDT [facility] Console Pap Interpretation Reported 02/14/2025 1:09 PM EDT [facility] Brushing/Spatula Cervix uteri structure / Unknown 02/11/2025 02/13/2025 6:22 AM EDT us Annetta Hayes MD LAB CYTOLOGY ORDERABLES Final Result Performing Organization Address City/[facility]/ZIP Co de Phone Number [facility] [address] [place] [address], [place] [phone] documented in this encounter Visit Diagnoses Diagnosis Encounter for screening for malignant neoplasm of cervix documented in this encounter Care Teams Administrative Nursing Supervisor Relationship Specialty Start Date End Date Annetta Hayes MD [address] [place] [address] [place] [address] PCP - General Internal Medicine 04/18/19 documented as of this encounter
== END 2025-04-30 10:23 | disposition home or self-care (01) ==
LOC: HO.HOS 09:44
PROVIDERS: Visit Provider Physician Assistant
DX: M17.0 Bilateral primary osteoarthritis of knee (principal)
CPT/HCPCS: 20610

== ENCOUNTER → 2025-04-30 09:44 | Outpatient (BNVA) | payer MEDICAID, SELFPAY | PROVIDERS: Visit Provider Physician Assistant | DX: M17.0 Bilateral primary osteoarthritis of knee (principal) | CPT/HCPCS: 20610; J7323 ==

== ENCOUNTER 2025-05-07 09:56 | Outpatient (AMB) | payer MEDICAID, SELFPAY ==
--- NOTE | 2025-05-07 10:03 | A.OFFVIS_ITS ---
Vital Signs 05/07/25 10:05 Height 5 ft 4 in Weight 200 lb BMI 34.3 Intake Visit Reasons: B/L knee Euflexxa #2 Intake Note: Shama is a 45 year old female who presents today for bilateral knee Euflexxa injections #2. Allergies kiwi Allergy (Severe, Verified 05/07/25 10:04) Anaphylaxis seafood Allergy (Severe, Verified 05/07/25 10:04) Anaphylaxis No Known Drug Allergies Allergy (Unknown, Verified 05/07/25 10:04) none pineapple Allergy (Verified 05/07/25 10:04) redness and itching HPI HPI B/L knee Euflexxa #2: Details: 45 year old female who presents today for bilateral knee Euflexxa injections #2. [facility] Medical History (Updated 02/25/25 @ 15:53 by Silvia Mann MD) UTI (urinary tract infection) Arthritis Trigeminal neuralgia Nystagmus Migraine Spastic bladder Ataxia Fatigue Multiple sclerosis Chronic knee pain Dysphagia Constipation Colon cancer screening GERD (gastroesophageal reflux disease) Multiple sclerosis Neurogenic bladder Incomplete emptying of bladder Primary osteoarthritis of right knee Primary osteoarthritis of left knee Thrombosed external hemorrhoid Surgical History History of surgery Family History Mother Arthritis Social History Alcohol intake: current Alcohol intake frequency: holidays/special occasions only Current occupational status: disabled Current occupation: rt handed Review of Systems Const All systems reviewed & are unremarkable except as noted in HPI and below Physical Exam Vital Signs: BMI result Body Mass Index 34.3 Const General: cooperative and no acute distress Orientation/consciousness: patient oriented x3 Resp Effort & Inspection: normal respiratory effort and able to speak in complete sentences Cardio Peripheral pulses: Peripheral pulses 2+ throughout Neuro General: patient oriented x3 Extrem Other: Bilateral knees normal to inspection. She does have valgus alignment. Medial joint line tenderness and tenderness along the retropatellar portion of the knee. She has full range of motion with crepitus. No ligamentous laxity. Calf supple nontender. Neurovascular intact. Office Procedures AMB Joint Injection/Aspiration Joint Injection/Aspiration Primary Site: Left Knee Secondary Site: Right Knee Prep: site was prepped using aseptic technique, ethochloride spray was applied and injection warnings given Injected: Euflexxa (#2) Approach Used: anterolateral Procedure: The patient tolerated the procedure well Coding 43872 - Glenohumeral/Tronchanteric Bursa/Intraarticular Procedure code (CPT) selection complete Assessment & Plan Assessment & Plan (1) Primary osteoarthritis of right knee: Code(s): M17.11 - Unilateral primary osteoarthritis, right knee Category: Medical (2) Primary osteoarthritis of left knee: Code(s): M17.12 - Unilateral primary osteoarthritis, left knee Category: Medical Plan Plan was to proceed with gel injection today. #2 Bilat knee euflexxa Injection performed today which the patient tolerated well. She will rest ice and use anti-inflammatories as needed for the next several days. I will see her back in 1 week for injection number #3 Coding Level of Care Code Procedure Only Diagnoses Primary osteoarthritis of right knee M17.11 Primary osteoarthritis of left knee M17.12 CPT Codes Coding - Joint 7: 49330 - Glenohumeral/Tronchanteric Bursa/Intraarticular ([id number])
[2025-05-07 10:05] VITALS: BMI 34.3
== END 2025-05-07 12:25 | disposition home or self-care (01) ==
LOC: HO.HOS 09:56
PROVIDERS: Visit Provider Physician Assistant
DX: M17.0 Bilateral primary osteoarthritis of knee (principal)
CPT/HCPCS: 20610

== ENCOUNTER → 2025-05-07 09:56 | Outpatient (BNVA) | payer MEDICAID, SELFPAY | PROVIDERS: Visit Provider Physician Assistant | DX: M17.0 Bilateral primary osteoarthritis of knee (principal) | CPT/HCPCS: 20610; J7323 ==

== ENCOUNTER 2025-05-14 09:24 | Outpatient (AMB) | payer MEDICAID, SELFPAY ==
--- NOTE | 2025-05-14 09:42 | A.OFFVIS_ITS ---
Vital Signs 05/14/25 10:23 Height 5 ft 4 in Weight 200 lb BMI 34.3 Intake Visit Reasons: B/L knee Euflexxa #3 Intake Note: Shama is a 45 year old female who presents today for Bilateral Knee Euflexxa Injections #3 of 3. Allergies kiwi Allergy (Severe, Verified 05/14/25 10:23) Anaphylaxis seafood Allergy (Severe, Verified 05/14/25 10:23) Anaphylaxis No Known Drug Allergies Allergy (Unknown, Verified 05/14/25 10:23) none pineapple Allergy (Verified 05/14/25 10:23) redness and itching HPI HPI B/L knee Euflexxa #3: Details: 45 year old female who presents today for bilateral knee Euflexxa injections #3. [facility] Medical History (Updated 02/25/25 @ 15:53 by Silvia Mann MD) UTI (urinary tract infection) Arthritis Trigeminal neuralgia Nystagmus Migraine Spastic bladder Ataxia Fatigue Multiple sclerosis Chronic knee pain Dysphagia Constipation Colon cancer screening GERD (gastroesophageal reflux disease) Multiple sclerosis Neurogenic bladder Incomplete emptying of bladder Primary osteoarthritis of right knee Primary osteoarthritis of left knee Thrombosed external hemorrhoid Surgical History History of surgery Family History Mother Arthritis Social History Alcohol intake: current Alcohol intake frequency: holidays/special occasions only Current occupational status: disabled Current occupation: rt handed Review of Systems Const All systems reviewed & are unremarkable except as noted in HPI and below Physical Exam Vital Signs: BMI result Body Mass Index 34.3 Const General: cooperative and no acute distress Orientation/consciousness: patient oriented x3 Resp Effort & Inspection: normal respiratory effort and able to speak in complete sentences Cardio Peripheral pulses: Peripheral pulses 2+ throughout Neuro General: patient oriented x3 Extrem Other: Bilateral knees normal to inspection. She does have valgus alignment. Medial joint line tenderness and tenderness along the retropatellar portion of the knee. She has full range of motion with crepitus. No ligamentous laxity. Calf supple nontender. Neurovascular intact. Office Procedures AMB Joint Injection/Aspiration Joint Injection/Aspiration Primary Site: Left Knee Secondary Site: Right Knee Prep: site was prepped using aseptic technique, ethochloride spray was applied and injection warnings given Injected: Euflexxa (#3) and in the joint Approach Used: anterolateral Procedure: The patient tolerated the procedure well Coding 96600 - Glenohumeral/Tronchanteric Bursa/Intraarticular Procedure code (CPT) selection complete Assessment & Plan Assessment & Plan (1) Primary osteoarthritis of right knee: Code(s): M17.11 - Unilateral primary osteoarthritis, right knee Category: Medical (2) Primary osteoarthritis of left knee: Code(s): M17.12 - Unilateral primary osteoarthritis, left knee Category: Medical Plan Plan was to proceed with gel injection today. #3 Bilat knee euflexxa Injec tion performed today which the patient tolerated well. She will rest ice and use anti-inflammatories as needed for the next several days. I will see her back prn Coding Level of Care Code Procedure Only Diagnoses Primary osteoarthritis of right knee M17.11 Primary osteoarthritis of left knee M17.12 CPT Codes Coding - Joint 7: 71725 - Glenohumeral/Tronchanteric Bursa/Intraarticular ([id number])
[2025-05-14 10:23] VITALS: BMI 34.3
--- OUTSIDE RECORDS SUMMARY | 2025-05-14 10:42 | XMS_ITS | Encounter Summary ---
Author Organization [facility] Address [address] [place] [address] Care Team Providers Care Gear Machinist Name Role Phone Annetta Hayes MD Primary Care Provider [phone] Encounter Details Date Type Department Care Team (Late st Contact Info) Description 02/13/2025 Lab Requisition [facility] - Main Lab [address] [facility] [place] [address] Annetta Hayes MD [address] [place] [address] [place] [address] Encounter for screening for malignant neoplasm of [...] LAB MICROBIOLOGY METHOD 02/13/2025 2:47 PM EDT [facility] Brushing/Spatula Cervix uteri structure / Unknown 02/11/2025 02/13/2025 6:22 AM EDT us Annetta Hayes MD LAB MOLECULAR DIAGNOSTICS ORD ERABLES Final Result Performing Organization Address [facility]/ZIP Co de Phone Number [facility] [address] [place] [address], [place] [phone] * Trichomonas vaginalis molecular study (02/11/2025 12:00 AM EDT) Pathologist [facility] Trichomonas vaginalis Negative Negative LAB MICROBIOLOGY METHOD 02/14/2025 1:24 PM EDT [facility] Brushing/Spatula Cervix uteri structure / Unknown 02/11/2025 02/13/2025 6:22 AM EDT us Annetta Hayes MD LAB BLOOD ORDERABLES Final Re sult Performing Organization Address City/[facility]/ZIP Co de Phone Number [facility] [address] [place] [address], [place] [phone] * Chlamydia trachomatis and neisseria gonorrhoeae by tma, thinprep (02/11/2025 12:00 AM EDT) N. gonorrhoeae, RNA Probe Negative Negative LAB MICROBIOLOGY METHOD 02/14/2025 1:15 PM EDT [facility] Chlamydia, RNA Probe Negative Negative LAB MICROBIOLOGY METHOD 02/14/2025 1:15 PM EDT [facility] Brushing/Spatula Cervix uteri structure / Unknown 02/11/2025 02/13/2025 6:22 AM EDT us Annetta Hayes MD LAB CYTOLOGY ORDERABLES Final Result [facility] [address] [place] [address], * Pap smear (02/11/2025 12:00 AM EDT) Interpretation Negative for intraepithelial lesion or malignancy 02/14/2025 1:09 PM EDT [facility] at 1308 EDT General Categorization Negative 02/14/2025 1:09 PM EDT [facility] LMP 02/14/2025 1:09 PM EDT [facility] Comment:4 wks Specimen Adequacy Satisfactory for evaluation, endocervical/courtney sformation zone component present 02/14/2025 1:09 PM EDT [facility] Pap Methodology Liquid Based Pap Test 02/14/2025 1:09 PM EDT [facility] Disclaimer The Pap test is a screening test which carries an inherent false negative rate. These test results should be correlated with the patient's clinical findings and history. This Pap test was processed using an automated screening system. Technical cytopathology services provided by [facility], at [address] [place] [address] (CLIA # [id number]/Thien Rizo MD, Channel Process Supervisor.) 02/14/2025 1:09 PM EDT [facility] Console Pap Interpretation Reported 02/14/2025 1:09 PM EDT [facility] Brushing/Spatula Cervix uteri structure / Unknown 02/11/2025 02/13/2025 6:22 AM EDT us Annetta Hayes MD LAB CYTOLOGY ORDERABLES Final Result Performing Organization Address City/[facility]/ZIP Co de Phone Number [facility] [address] [place] [address], [place] [phone] documented in this encounter Visit Diagnoses Diagnosis Encounter for screening for malignant neoplasm of cervix documented in this encounter Care Teams Gear Machinist Relationship Specialty Start Date End Date Annetta Hayes MD [address] [place] [address] [place] [address] PCP - General Internal Medicine 04/18/19 documented as of this encounter
--- OUTSIDE RECORDS SUMMARY | 2025-05-14 10:43 | XMS_ITS | Clinical Summary ---
Author Organization [address] [facility] Address [address] [place] [address] Phone Care Team Providers Care Proof Coins Inspector Name Role Phone Annetta Hayes MD Primary Care Provider [phone] Social History Tobacco Use Types Packs/Day Years [...] Procedure Name Priority Date/Time Associated Diagnosis Comments HPV WITH REFLEX GENOTYPE Routine 02/11/2025 12:00 AM EDT Encounter for screening for malignant neoplasm of cervix from Last 3 Months or Most Recently Relevant to Health Maintenance Results * HPV with reflex genotype (02/11/2025 12:00 AM EDT) HPV Negative Negative LAB MICROBIOLOGY METHOD 02/13/2025 2:47 PM EDT [facility] Brushing/Spatula Cervix uteri structure / Unknown 02/11/2025 02/13/2025 6:22 AM EDT us Annetta Hayes MD LAB MOLECULAR DIAGNOSTICS ORD ERABLES Final Result [facility] [address] [place] [address], [place] [phone] from Last 3 Months or Most Recently Relevant to Health Maintenance Insurance [place] Care Teams Proof Coins Inspector Relationship Specialty Start Date End Date Annetta Hayes MD [address] [place] [address] [place] [address] PCP - General Internal Medicine 04/18/19
== END 2025-05-14 09:59 | disposition home or self-care (01) ==
LOC: HO.HOS 09:25
PROVIDERS: Visit Provider Physician Assistant
DX: M17.0 Bilateral primary osteoarthritis of knee (principal)
CPT/HCPCS: 20610

== ENCOUNTER → 2025-05-14 09:24 | Outpatient (BNVA) | payer MEDICAID, SELFPAY | PROVIDERS: Visit Provider Physician Assistant | DX: M17.0 Bilateral primary osteoarthritis of knee (principal) | CPT/HCPCS: 20610; J7323 ==